=== PATIENT | female | born 1990 | race Caucasian/White ===

== ENCOUNTER 2018-04-01 11:03 | Inpatient (IN) | payer BC, SELFPAY ==
[2018-04-01] VITALS (7 sets, daily range): BP systolic 120–162; BP diastolic 76–103; PULSE 80–98; RESP 14–18; TEMP 36.7–37.7; O2SAT 95–99; BMI 45.1; BMI 45.3
--- NOTE | 2018-04-01 11:17 | ED.DCSUM_ITS ---
- ER Visit Summary Date of Service: 04/01/18 Chief Complaint: Abscess History of Present Illness: The patient is a 27 F presents to the emergency department with a left axillary abscess. Patient states that she has had some increased pain and swelling for the past week. She states she went to urgent care and they wanted to do incision and drainage, but she declined at that time. She was placed on Keflex. She states that symptoms worsened. She began to have fevers and chills. She went back to urgent care 2 days ago and had incision and drainage with no purulence that was able to be expressed. She states that she returned to the [facility] today. She had increasing pain and redness. She also had continued fevers. She was evaluated and due to concern for failed outpatient therapy was sent over to the emergency department. She denies any history of immunosuppression. She denies any other systemic complaints. Physical Examination: Vital signs reviewed General: Well-nourished, well-developed Head: Normocephalic, atraumatic Eyes: Pupils equal and reactive, extraocular muscles intact Neck, supple, no lymphadenopathy Heart: Regular rate and rhythm Respiratory: No distress, clear bilaterally Abdomen: Soft, nontender, nondistended, no peritoneal signs Back: Nontender Extremities: Patient has cellulitis with some fluctuance and lymphadenopathy within the left axilla. There is no streaking. There is no crepitus. She does have incision that is approximately 1-1/2 cm that is open with no drainage. She is markedly tender to palpation. Skin: Normal color no rash Neuro: Alert and oriented, no focal or lateralizing deficits Test Results: [] Emergency Department Course and Treatment: I did discuss the patient with Dr. Moreno on arrival. I was unable to definitively state if there was an abscess. Because of this, we did obtain upper extremity imaging. Labs do show leukocytosis but otherwise unremarkable. The patient was improved with morphine. CT demonstrates cellulitis with questionable phlegmon. There is no definitive abscess. At this time, as the patient has failed outpatient therapy, I do feel that she would benefit from admission for IV antibiotics. She was discussed with the hospitalist and will be admitted per Treatment Plan: [] Disposition: Admission Impression: 1. Left axillary cellulitis with failed outpatient therapy This note was generated with [employer] dictation software. It may contain incorrect words, spelling, and punctuation that were not noted in review of the chart prior to signing ED Disposition - Plan for ED Patient: Chief Complaint: Cellulitis
--- NOTE | 2018-04-01 11:25 | CT_ITS ---
STUDY: CT SCAN AXILLARY REGION LEFT REASON FOR EXAM: Female, 27 years old. History of left axillary cellulitis. Recent attempted drainage. RADIATION DOSAGE (If Supplied By Facility): CTDIvol = ( 43.85 ) mGy, DLP = ( 1822.26 ) mGycm. Individualized dose optimization techniques were used for this CT.? TECHNIQUE: Multiple axial tomographic images of the left axillary region were obtained following intravenous injection of 100 mL of Isovue-300. Coronal and sagittal reconstruction was obtained as well. COMPARISON: None. FINDINGS: Left axillary lymphadenopathy. The largest measures 1.9 cm. There is a 5 cm x 3.6 cm x 4.8 cm area of increased soft tissue density in the left axillary region with overlying skin thickening. This may represent an area of cellulitis and phlegmon. There might be a central 1.[address]/Extremity Upper WITH Contrast IMPRESSION: Findings include encephalitis and phlegmon formation in the left axillary region with possible small pocket of fluid. Slightly enlarged left axillary lymph nodes. Electronically Signed: James Botello MD at 12:30 EDT Tel [phone], Service support ,
[2018-04-01] MEDS: Ondansetron 4 MG/2 ML Vial IV (11:33)
[2018-04-01] MEDS: Morphine 4 MG/ML Syringe IV ×2 (11:33→13:02)
[2018-04-01] MEDS: 0.9% Normal Saline 1,000 ML 1000 ML IV (11:33)
[2018-04-01 11:40] LABS: Absolute Lymphocyte Count 2.67 X10^3/ul (0.83-4.51); Absolute Neutrophil Count 8.3 X10^3/uL (2.0-7.7); Basophil# 0.03 X10^3/uL; Basophil% 0.3 % (0-1); Eosinophils% 0.8 % (0-5); Hematocrit 39.4 % (37-47); Hemoglobin 12.5 g/dl (12.0-15.0); Lymphocyte # 2.67 X10^3/ul (4.0); Lymphocyte % 22.4 % (19-41); Mean Corp Hgb Conc 31.7 g/gl (32-36); Mean Corpuscular Hgb 26.6 pg (27.0-32.0); Mean Corpuscular Volume 83.8 fL (81-99); Monocyte# 0.76 X10^3/uL; Monocyte% 6.4 % (0-10); Neutrophil # 8.33 X10^3/uL (2.7-7.7); Neutrophil % 69.8 % (47-70); POSITIVE COUNT NO; POSITIVE DIFFERENTIAL NO; POSITIVE MORPHOLOGY NO; Platelet Count 395 K/mm3 (150-450); RBC Distribution Width CV 14.2 % (11.6-14.6); White Blood Count 11.9 K/mm3 (4.4-11.0)
[2018-04-01 11:53] LABS: ALB/GLOB Ratio 0.6 RATIO (0.9-2.4); AST(SGOT) 19 U/L (15-37); Alanine Aminotransfer ALT/SGPT 19 U/L (13-56); Albumin, Serum 3.3 g/dL (3.2-5.0); Alkaline Phosphatase 93 U/L (45-117); Anion Gap 7 (5-15); BUN 7 mg/dL (7-18); BUN/Creat Ratio 8.2 RATIO (10-20); Calcium,Total 9.2 mg/dL (8.5-10.1); Chloride 104 mmol/L (98-107); Creatinine, Serum 0.85 mg/dL (0.55-1.02); EST Glomerular Filtration Rate 84 mL/min (>60); Est Glom Filt Rate - Afr Amer 101 mL/min (>60); Estimated Creatinine Clearance 94.97 ml/min; Globulin 5.2 g/dL (2.2-4.2); Glucose 91 mg/dL (74-106); Potassium 4.5 mmol/L (3.5-5.1); Protein, Total 8.5 g/dL (6.4-8.2); Sodium Level 136 mmol/L (136-145)
[2018-04-01 12:00] LABS: Pregnancy, Serum, hCG Quali. NEGATIVE Negative (0-9 Nonpreg)
[2018-04-01 12:01] LABS: Lactic Acid 0.7 mmol/L (0.4-2.0)
--- NOTE | 2018-04-01 12:49 | PCM.HP.STD ---
Problem List (1) Left axillary cellulitis with abscess Status: Acute (2) Morbid obesity Status: Chronic (3) H/o Right axillary cellulitis/abscess Status: Chronic History of Present Illness Date of Admission: 04/01/18 Chief Complaint: Left axillary pain and abscess The patient is a 27 year old F with no significant past medical history came to ER with left axillary pain, swelling consistent with abscess. Patient pain, discomfort started about 2 weeks ago but it gotten really worse with swelling, pain and fever last Thursday. She went to urgent care on Thursday and was given Keflex. She was not able to keep Keflex down and vomited or spit it out. Then she has been going to [facility] and saw CURTIS Pacheco Dr. yesterday and had incision and drainage but no significant pus came out. Today in the ED, she has temperature 99.9?F, heart rate in 90s with mild leukocytosis 11.[address] scan of axillary region in which showed left axillary lymphadenopathy, largest 1 1.9 cm. Increased soft tissue density of 5 x 3.6 x 4.8 cm with overlying skin thickening consistent with phlegmon. There might be sent on 1.1 cm fluid collection [] Past Medical History Past Medical History (Chronic Problems): Chronic Problems Morbid obesity (Chronic) H/o Right axillary cellulitis/abscess (Chronic) Allergies hydromorphone HCl [From Dilaudid] Allergy (Verified 02/25/15 22:45) Other acetaminophen [From Vicodin] Adverse Reaction (Verified 04/01/18 11:08) Vomiting hydrocodone [From Vicodin] Adverse Reaction (Verified 04/01/18 11:08) Vomiting ketorolac tromethamine [From Toradol] Adverse Reaction (Verified 02/25/15 22:45) Other feels like bugs are crawling on her oxycodone [From Percocet] Adverse Reaction (Verified 04/01/18 11:08) Vomiting Home Medications: Ambulatory Orders Medication Instructions Recorded Lorazepam [Ativan] 0.5 mg PO TID PRN #10 tablet 07/17/14 Doxycycline Hyclate 100 mg PO BID #20 capsule 02/26/15 Famotidine [Pepcid] 20 mg PO BID 10/23/15 proCHLORPERazine tablet [Compazine] 5 mg PO Q6H PRN PRN 10/23/15 Smoking Status: Never smoker - *Family History Paternal History Items: No pertinent history Review of Systems Constitutional: Reports: Chills, Fever. Denies: Weight Change HEENT: Denies: Head Aches, Sinus Congestion, Sinus Drainage Cardiovascular: Denies: Chest Pain, Palpitations Respiratory: Denies: Cough, Shortness of breath at rest, Sputum production Gastrointestinal: Reports: Nausea. Denies: Abdominal Pain, Vomiting Genitourinary: Denies: Dysuria Musculoskeletal: Denies: Joint Pain, Joint Tenderness Skin: Reports: Rash, Wounds Neurological: Denies: Numbness, Tingling, Focal weakness Psychiatric: Denies: Anxiety, Depression, Homicidal Ideations, Suicidal Ideations Hematologic/ Lymphatic: Denies: Easy Bruising, Easy Bleeding VTE Information - Inpt Only VTE Present on Admission: No VTE Mechan Device Prophylaxis: None VTE Pharm Prophylaxis ordered?: No Reason prophylaxis not ordered:: Procedure Not Indicated Patient Problems: Active and Suspected Problems Left axillary cellulitis with abscess (Acute) - Physical Exam General: Alert, Oriented x3, Cooperative HEENT: Atraumatic, PERRLA, EOMI, Normocephalic Neck: Supple, No JVD, Negative Carotid Bruits Lungs: Clear to auscultation, Normal air movement Cardiovascular: Regular rate, Regular Rhythm, Normal S1, Normal S2, No murmurs Abdomen: Bowel Sounds Present, Soft, Non Tender, Non-Distended Extremities: Capillary Refill Less than 3 Seconds, Edema Skin: Rash Present, - - Erythematous rash present over left axillary region with swelling, tenderness and incision which was done yesterday. Musculoskeletal: No Tenderness to Palpation of Joints or Extremities Neurological: Cranial nerves II-XII grossly intact Psych/Mental Status: Normal Affect, Appropriate Vital Signs Temp Pulse Resp BP Pulse Ox 99.9 F H 90 14 158/80 H 98 04/01/18 11:05 04/01/18 11:12 04/01/18 11:12 04/01/18 11:12 04/01/18 11:12 Oxygen Delivery Method Room Air Weight: 287 lb 14.779 oz Body Mass Index (BMI) 45.1 Finger Stick Blood Glucose 93 Laboratory Tests Past 24 Hrs 04/01/18 04/01/18 04/01/18 11:25 11:25 11:25 WBC 11.9 H RBC 4.70 Hgb 12.5 Hct 39.4 MCV 83.8 MCH 26.6 L MCHC 31.7 L RDW 14.2 RDW Differential 44.0 H Plt Count 395 MPV 11.0 Immature Gran % (Auto) 0.300 Neut % (Auto) 69.8 Lymph % (Auto) 22.4 [place] % (Auto) 6.4 Eos % (Auto) 0.8 Baso % (Auto) 0.3 Absolute Neuts (auto) 8.3 H Absolute Lymphs (auto) 2.67 Total Counted Not Reportable Sodium 136 Potassium 4.5 Chloride 104 Carbon Dioxide 25.0 Anion Gap 7 BUN 7 Creatinine 0.85 Estim Creat Clear Calc 94.97 Est GFR (MDRD) Af Amer 101 Est GFR (MDRD) Non-Af 84 BUN/Creatinine Ratio 8.2 L Glucose 91 Lactic Acid 0.7 Calcium 9.2 Total Bilirubin 0.40 AST 19 ALT 19 Alkaline Phosphatase 93 Total Protein 8.5 H Albumin 3.3 Globulin 5.2 H Albumin/Globulin Ratio 0.6 L Serum , Qual 04/01/18 11:25 WBC RBC Hgb Hct MCV MCH MCHC RDW RDW Differential Plt Count MPV Immature Gran % (Auto) Neut % (Auto) Lymph % (Auto) [place] % (Auto) Eos % (Auto) Baso % (Auto) Absolute Neuts (auto) Absolute Lymphs (auto) Total Counted Sodium Potassium Chloride Carbon Dioxide Anion Gap BUN Creatinine Estim Creat Clear Calc Est GFR (MDRD) Af Amer Est GFR (MDRD) Non-Af BUN/Creatinine Ratio Glucose Lactic Acid Calcium Total Bilirubin AST ALT Alkaline Phosphatase Total Protein Albumin Globulin Albumin/Globulin Ratio Serum , Qual NEGATIVE Assessment/Plan All Active Problems Left axillary cellulitis with abscess (Acute) The patient is a 27 year old F with no significant past medical history came to ER with left axillary pain, swelling consistent with abscess. Patient pain, discomfort started about 2 weeks ago but it gotten really worse with swelling, pain and fever last Thursday. She went to urgent care on Thursday and was given Keflex. She was not able to keep Keflex down and vomited or spit it out. Then she has been going to [facility] and saw CURTIS Pacheco Dr. yesterday and had incision and drainage but no significant pus came out. Today in the ED, she has temperature 99.9?F, heart rate in 90s with mild leukocytosis 11.[address] scan of axillary region in which showed left axillary lymphadenopathy, largest 1 1.9 cm. Increased soft tissue density of 5 x 3.6 x 4.8 cm with overlying skin thickening consistent with phlegmon. There might be sent on 1.1 cm fluid collection 1. Left axillary cellulitis with phlegmon, failure of outpatient treatment: Patient is being admitted on regular [facility] floor. Patient on IV clindamycin in ER. Deep wound culture, blood cultures x2 ordered. Started on IV cefazolin. For pain, patient can have Motrin or Toradol for severe pain. IV fluid normal saline. 2. Similar history of right axillary cellulitis about 2-3 years ago Patient denies history of hidradenitis suppurativa. 3. Morbid obesity: Weight reduction counseling done. Due to prophylaxis, low risk. Early ambulation encouraged Code Visit Inpatient E&M: 87131 Subs Hosp L2
--- NOTE | 2018-04-01 13:01 | NURSING ---
310 LEFT AXILLA CELLULITIS TU
[2018-04-01] MEDS: 0.9% Normal Saline 1,000 ML 100 ML IV (14:24)
[2018-04-01] MEDS: proCHLORPERazine 5 MG Tablet PO (14:25)
[2018-04-01] MEDS: Ibuprofen 600 MG Tablet PO ×2 (14:38→21:42)
[2018-04-01] MEDS: Cefazolin 1 GM/50 ML BAG IV ×2 (14:47→21:43)
[2018-04-01 17:06] LABS: M R Staph aureus DNA By PCR Negative (Negative); Probe Check PASS; Specimen Processing Control PASS; Staph aureus DNA By PCR POSITIVE (Negative)
[2018-04-01] MEDS: Famotidine 20 MG Tablet PO (21:42)
[2018-04-02] MEDS: Morphine 2 MG/ML Syringe IV ×2 (00:41→21:20)
[2018-04-02] MEDS: 0.9% NaCl Peripheral Flush Adult/Peds IV ×2 (00:41→21:21)
[2018-04-02] MEDS: 0.9% Normal Saline 1,000 ML 100 ML IV ×3 (00:41→20:14)
[2018-04-02] MEDS: proMETHazine 25 MG/ML Syringe 12.5 MG IV ×2 (00:41→21:21)
[2018-04-02] MEDS: Acetaminophen 325 MG Tablet 650 MG PO ×2 (02:24→15:56)
[2018-04-02 02:30] VITALS: BP 100/65; PULSE 76; RESP 14; TEMP 36.4; O2SAT 100
[2018-04-02] MEDS: Ibuprofen 600 MG Tablet PO ×3 (05:15→21:21)
[2018-04-02] MEDS: Cefazolin 1 GM/50 ML BAG IV ×3 (05:15→21:20)
--- NOTE | 2018-04-02 06:35 | NURSING ---
1% Lidocaine requested from pharmacy. Dr. Arnold is requesting it for an I&D to be performed at bedside.
[2018-04-02 08:19] LABS: Absolute Lymphocyte Count 2.18 X10^3/ul (0.83-4.51); Absolute Neutrophil Count 5.4 X10^3/uL (2.0-7.7); Basophil# 0.02 X10^3/uL; Basophil% 0.2 % (0-1); Eosinophil# 0.12 X10^3/uL; Eosinophils% 1.4 % (0-5); Hematocrit 34.5 % (37-47); Lymphocyte # 2.18 X10^3/ul (4.0); Lymphocyte % 25.7 % (19-41); Mean Corp Hgb Conc 31.9 g/gl (32-36); Mean Corpuscular Hgb 27.4 pg (27.0-32.0); Mean Corpuscular Volume 85.8 fL (81-99); Mean Platelet Vol. 10.9 fl (6.2-12.0); Monocyte% 8.2 % (0-10); Neutrophil # 5.43 X10^3/uL (2.7-7.7); Platelet Count 285 K/mm3 (150-450); RBC Distribution Width CV 14.1 % (11.6-14.6); RBC Distribution Width SD 43.7 fl (35.1-43.9); Red Blood Count 4.02 M/mm3 (4.2-5.4); White Blood Count 8.5 K/mm3 (4.4-11.0)
[2018-04-02 08:21] LABS: POSITIVE COUNT NO; POSITIVE DIFFERENTIAL NO; POSITIVE MORPHOLOGY NO
[2018-04-02 09:21] VITALS: BP 126/78; PULSE 90; RESP 18; TEMP 36.5; O2SAT 99
[2018-04-02] MEDS: Famotidine 20 MG Tablet PO ×2 (09:26→21:21)
--- NOTE | 2018-04-02 11:32 | PCM.PN.HOSP ---
Patient Problems: Active and Suspected Problems Left axillary cellulitis with abscess (Acute) Subjective: No fever or chills. Left axilla is still swollen, tender and painful is not able to lift arm or move around shoulder Vitals/I&O's: Vital Signs Temp Pulse Resp BP Pulse Ox 97.7 F L 90 18 126/78 H 99 04/02/18 09:21 04/02/18 09:21 04/02/18 09:21 04/02/18 09:21 04/02/18 09:21 Oxygen Delivery Method Room Air Weight: 289 lb 6 oz Body Mass Index (BMI) 45.3 Finger Stick Blood Glucose 93 Intake and Output for Last 24 Hours 03/31/18 04/01/18 04/02/18 23:59 23:59 23:59 Intake Total 752 / 752 1320 / 1320 Balance 752 / 752 1320 / 1320 General: Alert, Oriented x3, Cooperative HEENT: Atraumatic, PERRLA, EOMI, Normocephalic Neck: Supple, No JVD, Negative Carotid Bruits Lungs: Clear to auscultation, Normal air movement Cardiovascular: Regular rate, Regular Rhythm, Normal S1, Normal S2, No murmurs Abdomen: Bowel Sounds Present, Soft, Non Tender, Non-Distended Extremities: No edema, Capillary Refill Less than 3 Seconds Skin: No rashes, No breakdown, Rash Present - Left axillary mass with tenderness, and duration and purulent material coming out from I&D. Musculoskeletal: No Tenderness to Palpation of Joints or Extremities Neurological: Cranial nerves II-XII grossly intact Psych/Mental Status: Normal Affect, Appropriate Microbiology Past 72 Hours 04/01/18 14:45 Wound Abcess - Axillary Wound Culture - Preliminary Staphylococcus aureus Laboratory Results 04/01/18 11:25: WBC 11.9 H, RBC 4.70, Hgb 12.5, Hct 39.4, MCV 83.8, MCH 26.6 L, MCHC 31.7 L, RDW 14.2, RDW Differential 44.0 H, Plt Count 395, MPV 11.0, Immature Gran % (Auto) 0.300, Neut % (Auto) 69.8, Lymph % (Auto) 22.4, [place] % (Auto) 6.4, Eos % (Auto) 0.8, Baso % (Auto) 0.3, Absolute Neuts (auto) 8.3 H, Absolute Lymphs (auto) 2.67, Total Counted Not Reportable 04/01/18 11:25: Sodium 136, Potassium 4.5, Chloride 104, Carbon Dioxide 25.0, Anion Gap 7, BUN 7, Creatinine 0.85, Estim Creat Clear Calc 94.97, Est GFR (MDRD) Af Amer 101, Est GFR (MDRD) Non-Af 84, BUN/Creatinine Ratio 8.2 L, Glucose 91, Calcium 9.2, Total Bilirubin 0.40, AST 19, ALT 19, Alkaline Phosphatase 93, Total Protein 8.5 H, Albumin 3.3, Globulin 5.2 H, Albumin/Globulin Ratio 0.6 L 04/01/18 11:25: Lactic Acid 0.7 04/01/18 11:25: Serum , Qual NEGATIVE 04/01/18 14:45: MRSA (PCR) Negative 04/01/18 14:45: S.aureus Protein A PCR POSITIVE H, MRSA (PCR) Negative 04/02/18 08:10: WBC 8.5, RBC 4.02 L, Hgb 11.0 L, Hct 34.5 L, MCV 85.8, MCH 27.4, MCHC 31.9 L, RDW 14.1, RDW Differential 43.7, Plt Count 285, MPV 10.9, Immature Gran % (Auto) 0.500, Neut % (Auto) 64.0, Lymph % (Auto) 25.7, [place] % (Auto) 8.2, Eos % (Auto) 1.4, Baso % (Auto) 0.2, Absolute Neuts (auto) 5.4, Absolute Lymphs (auto) 2.18, Total Counted Not Reportable Current Medications Acetaminophen (Tylenol) 650 mg PO Q6H PRN PRN PRN Reason: Mild Pain (scale 0-3)/T>100.7 Last Admin: 04/02/18 02:24 Dose: 650 mg Dextrose (D50w Syringe) 0 gm IV X1 PRN; Protocol PRN Reason: Hypoglycemia Docusate Sodium (Colace) 200 mg PO BID PRN PRN PRN Reason: Constipation Famotidine (Pepcid) 20 mg PO BID DAVID Last Admin: 04/02/18 09:26 Dose: 20 mg Glucagon () 1 mg IM .X1 PRN PRN Reason: Hypoglycemia Sodium Chloride () 1,000 mls @ 100 mls/hr IV .Q10H DAVID Last Admin: 04/02/18 09:36 Dose: 100 mls/hr Cefazolin Sodium () 1 gm in 50 mls @ 150 mls/hr IV Q8 DAVID Last Admin: 04/02/18 05:15 Dose: 150 mls/hr Ibuprofen (Motrin) 600 mg PO Q8 DAVID Last Admin: 04/02/18 05:15 Dose: 600 mg Lorazepam (Ativan) 0.5 mg PO TID PRN PRN Reason: ANXIETY Morphine Sulfate () 1 - 2 mg IV Q4H PRN PRN PRN Reason: Moderate Pain (pain scale 4-5) Last Admin: 04/02/18 00:41 Dose: 2 mg Prochlorperazine Maleate (Compazine Tablet) 5 mg PO Q6H PRN PRN PRN Reason: NAUSEA Last Admin: 04/01/18 14:25 Dose: 5 mg Promethazine HCl (Phenergan) 12.5 mg IV Q4H PRN PRN PRN Reason: NAUSEA/VOMITING Last Admin: 04/02/18 00:41 Dose: 12.5 mg Sodium Chloride () 5 - 30 ml IV UD PRN PRN Reason: SALINE FLUSH Last Admin: 04/02/18 00:41 Dose: 10 ml Medical Necessity - Tobacco Use Smoking Status: Never smoker Assessment/Plan All Active Problems Left axillary cellulitis with abscess (Acute) The patient is a 27 year old F with no significant past medical history came to ER with left axillary pain, swelling consistent with abscess. Patient pain, discomfort started about 2 weeks ago but it gotten really worse with swelling, pain and fever last Thursday. She went to urgent care on Thursday and was given Keflex. She was not able to keep Keflex down and vomited or spit it out. Then she has been going to [facility] and saw CURTIS Pacheco Dr. yesterday and had incision and drainage but no significant pus came out. Today in the ED, she has temperature 99.9?F, heart rate in 90s with mild leukocytosis 11.[address] scan of axillary region in which showed left axillary lymphadenopathy, largest 1 1.9 cm. Increased soft tissue density of 5 x 3.6 x 4.8 cm with overlying skin thickening consistent with phlegmon. There might be sent on 1.1 cm fluid collection 1. Left axillary cellulitis with phlegmon, failure of outpatient treatment: Patient was being admitted on regular [facility] floor. Patient had IV clindamycin in ER. Deep wound culture, Gram stain showing staph aureus. Blood cultures x2 pending. Patient did not had fever or chills since admission. Dr. Moreno has been consulted and he is going to do incision and drainage. Increase cefazolin 2 g every 8 hourly as per body weight. For pain, patient can have Motrin or Toradol for severe pain and as anti-inflammatory agents. Continue IV fluid normal saline. 2. Similar history of right axillary cellulitis about 2-3 years ago Patient denies history of hidradenitis suppurativa. 3. Morbid obesity: Weight reduction counseling done. Due to prophylaxis, low risk. Early ambulation encouraged Code Visit Inpatient E&M: 36125 Subs Hosp L3
--- NOTE | 2018-04-02 12:40 | CASEMGMT ---
See RN SAMINA assess link: D/C PLAN: Home [facility] Face to Face with patient for initial transition planning/care coordination assessment. RN SAMINA introduced self and role at [facility]. Patient resting in bed, alert and oriented. Patient willing to participate in assessment and is able to answer all questions appropriately. Care providers, pharmacy, and demographics verified. Pt wishes to discharge home, denies need for home health at this time. Pt states she has no further needs or concerns at this time. CM to follow for discharge planning needs that may arise. Alejo EL RN CM
[2018-04-02] MEDS: Ondansetron 4 MG/2 ML Vial IV (13:36)
[2018-04-02] MEDS: Morphine 2 MG/ML Syringe 3 MG IV (13:37)
[2018-04-02 16:01] VITALS: BP 104/62; PULSE 77; RESP 16; TEMP 36.8; O2SAT 99
--- NOTE | 2018-04-02 18:22 | PCM.CONS.GEN ---
Reason for Consult Date of Consultation: 04/02/18 History of Present Illness: aMnuel is a 27 year old female with a complaint of a left axillary?abscess. ?She ?has noticed this abscess for the past week. Noted pain first, then significant swelling. ?She has a small area that opened on its own, now draining bloody fluid, no relief with this. ?Patient notes she has felt slightly feverish the last few days though no measured fever at office visit. ?She denies?a history of diabetes. ? ? The patient was seen at Urgent Care Thursday?and?was started on cephalexin. ?She has been referred for surgical evaluation. ?She has noted no improvement on the antibiotic. ?Patient was evaluated by physician's acute care nursing assistant-Tara Ortiz on Thursday 03/29 and she had recommended incision and drainage with culture at that time. ?Patient declined procedure at that time. ?She was scheduled to follow up with us the following day?but had to cancel due to a family emergency. ?She presented yesterday?for recheck noting worsening pain and redness. ? The patient denies a prior history of abscesses but does recall an episode of lymphadenopathy in the right axilla several years ago, states she had extensive workup for that and no clear etiology was ever discovered. ?She denies any pets at home, denies any trauma to the hand or arm. ? She performed an incision and drainage of the left axillary abscess on 03/31/18 with minimal purulent material. ?Culture was obtained but showed no growth as of this morning's visit. ?Antibiotic was changed to doxycycline pending culture results, patient has taken one dose of this. ?She notes she is feeling worse today. ?The erythema is now extending outside of the marked borders and she is feeling feverish. ?Notes significant pain with any slight movement of her left arm. there was no gross fluctuance but significant cellulitis of the area when the patient was seen in the office. She is admitted for IV antibiotics. There was a second site that started draining purulent material last evening. she has continued pain. There is more obvious fluctuance noted today. Past Medical History Past Medical History (Chronic Problems): Chronic Problems Morbid obesity (Chronic) H/o Right axillary cellulitis/abscess (Chronic) Allergies hydromorphone HCl [From Dilaudid] Allergy (Verified 02/25/15 22:45) Other acetaminophen [From Vicodin] Adverse Reaction (Verified 04/01/18 11:08) Vomiting hydrocodone [From Vicodin] Adverse Reaction (Verified 04/01/18 11:08) Vomiting ketorolac tromethamine [From Toradol] Adverse Reaction (Verified 02/25/15 22:45) Other feels like bugs are crawling on her oxycodone [From Percocet] Adverse Reaction (Verified 04/01/18 11:08) Vomiting Home Medications: Ambulatory Orders Medication Instructions Recorded Lorazepam [Ativan] 0.5 mg PO TID PRN #10 tablet 07/17/14 RX: Doxycycline Hyclate 100 mg PO BID #20 capsule 02/26/15 Famotidine [Pepcid] 20 mg PO BID 10/23/15 proCHLORPERazine tablet [Compazine] 5 mg PO Q6H PRN PRN 10/23/15 Divalproex Sodium [Depakote] 125 mg PO BIDCM 04/01/18 Smoking Status: Never smoker - *Family History Paternal History Items: No pertinent history Review of Systems Constitutional: Denies: Chills, Fever, Weight Change HEENT: Denies: Head Aches, Sinus Congestion, Sinus Drainage Cardiovascular: Denies: Chest Pain, Palpitations Respiratory: Denies: Cough, Shortness of breath at rest, Sputum production Gastrointestinal: Denies: Abdominal Pain, Nausea, Vomiting Genitourinary: Denies: Dysuria Musculoskeletal: Denies: Joint Pain, Joint Tenderness Skin: Reports: - - left axillary abscess. Denies: Rash, Wounds Neurological: Denies: Numbness, Tingling, Focal weakness Psychiatric: Denies: Anxiety, Depression, Homicidal Ideations, Suicidal Ideations Hematologic/ Lymphatic: Denies: Easy Bruising, Easy Bleeding Patient Problems: Active and Suspected Problems Left axillary cellulitis with abscess (Acute) - Physical Exam General: Alert, Oriented x3, Cooperative Lungs: Clear to auscultation, Normal air movement Cardiovascular: Regular rate, No murmurs Musculoskeletal: - - left axilla-a transverse incision with no current drainage. Fluctuance just above the site of the transverse incision and a sinus draining purulent material. Above this. Overall, erythematous felt to be 10 x 5 cm Vital Signs Temp Pulse Resp BP Pulse Ox 98.2 F 77 16 104/62 99 04/02/18 16:01 04/02/18 16:01 04/02/18 16:01 04/02/18 16:01 04/02/18 16:01 Oxygen Delivery Method Room Air Weight: 131.258 kg Body Mass Index (BMI) 45.3 Finger Stick Blood Glucose 93 Intake and Output for Last 24 Hours 03/31/18 04/01/18 04/02/18 23:59 23:59 23:59 Intake Total 752 / 752 2945 / 2945 Balance 752 / 752 2945 / 2945 Microbiology Past 72 Hours 04/01/18 14:45 Gram Stain - Final Wound Abcess - Axillary Wound Culture - Preliminary Staphylococcus aureus Laboratory Tests Past 24 Hrs 04/02/18 08:10 WBC 8.5 RBC 4.02 L Hgb 11.0 L Hct 34.5 L MCV 85.8 MCH 27.4 MCHC 31.9 L RDW 14.1 RDW Differential 43.7 Plt Count 285 MPV 10.9 Immature Gran % (Auto) 0.500 Neut % (Auto) 64.0 Lymph % (Auto) 25.7 [place] % (Auto) 8.2 Eos % (Auto) 1.4 Baso % (Auto) 0.2 Absolute Neuts (auto) 5.4 Absolute Lymphs (auto) 2.18 Total Counted Not Reportable Assessment/Plan All Active Problems Left axillary cellulitis with abscess (Acute) left axillary complicated abscess PROCEDURE: ?INCISION AND DRAINAGE OF left axillary?ABSCESS ? After consent was obtained and the site, person, and procedure verified, the patient`s skin was prepped and draped in the usual fashion. ?Lidocaine was injected into the skin. ?A circular incision was made over the site that was draining purulent material. The site was unroofed but then tracked down towards the area of maximal fluctuance. ?A second circular incision was made over the site that was fluctuant in this drained a much larger amount of purulent material. ?Culture was obtained??the wound was packed with plain gauze in both sites. The patient tolerated the procedure well. We will plan for the patient 2. Continue to receive IV antibiotics and watch for improvement in the cellulitis. We'll plan to remove the packing in the morning.
[2018-04-02 20:45] VITALS: BP 108/61; PULSE 73; RESP 16; TEMP 36.9; O2SAT 99
[2018-04-03 03:45] VITALS: BP 107/67; PULSE 81; RESP 18; TEMP 36.8; O2SAT 98
[2018-04-03] MEDS: Cefazolin 1 GM/50 ML BAG IV ×3 (05:44→23:17)
[2018-04-03] MEDS: Ibuprofen 600 MG Tablet PO ×3 (05:44→23:17)
[2018-04-03] MEDS: 0.9% Normal Saline 1,000 ML 100 ML IV ×2 (05:45→14:57)
[2018-04-03] MEDS: Famotidine 20 MG Tablet PO ×2 (08:47→23:17)
[2018-04-03] MEDS: Acetaminophen 325 MG Tablet 650 MG PO ×2 (08:48→20:17)
[2018-04-03] MEDS: Gabapentin 100 MG Capsule 200 MG PO ×2 (09:29→16:28)
--- NOTE | 2018-04-03 10:25 | PCM.PN.SRG ---
Patient Problems: Active and Suspected Problems Left axillary cellulitis with abscess (Acute) Subjective: still pain in the axilla area and tingling down arm - Physical Exam General: Alert, Oriented x3, Cooperative Extremities: - - no further fluctuance. Decreased erythema and decreased induration and fullness in the axillary area. The packing was removed with purulent discharge from the lower area but no undrained fluctuance noted Vital Signs Temp Pulse Resp BP Pulse Ox 98.3 F 81 18 107/67 98 04/03/18 03:45 04/03/18 03:45 04/03/18 03:45 04/03/18 03:45 04/03/18 03:45 Oxygen Delivery Method Room Air Weight: 131.258 kg Body Mass Index (BMI) 45.3 Finger Stick Blood Glucose 93 Intake and Output for Last 24 Hours 04/01/18 04/02/18 04/03/18 23:59 23:59 23:59 Intake Total 752 / 752 2945 / 2945 1073 / 1073 Balance 752 / 752 2945 / 2945 1073 / 1073 Microbiology Past 72 Hours 04/01/18 14:45 Gram Stain - Final Wound Abcess - Axillary Wound Culture - Final Staphylococcus aureus Gram positive [place] Anaerobic Culture - Preliminary Checking for anaerobes, further studies to follow. Medical Necessity - Tobacco Use Smoking Status: Never smoker Assessment/Plan All Active Problems Left axillary cellulitis with abscess (Acute) left axillary complicated abscess - status post incision and drainage with counter incision of somewhat complicated left axillary abscess the packing was removed this morning. Overall, induration, inflammation is improving with no undrained fluctuance noted. Patient still had considerable pain. Has concerns about vomiting with all narcotics. We will add gabapentin.
--- NOTE | 2018-04-03 10:48 | PCM.PN.HOSP ---
Patient Problems: Active and Suspected Problems Left axillary cellulitis with abscess (Acute) Subjective: Patient seen and examined. Be managed for left axillary abscess and is status post I&D. Complains of pain that she states is relatively well controlled. She denies any fever or chills, any cough, any abdominal pain, any diarrhea vomiting. Abscess packing was taken out this morning with some drainage and she currently has a dressing on the side of the I&D. 12 point review of systems otherwise negative. Vitals/I&O's: Vital Signs Temp Pulse Resp BP Pulse Ox 98.3 F 81 18 107/67 98 04/03/18 03:45 04/03/18 03:45 04/03/18 03:45 04/03/18 03:45 04/03/18 03:45 Oxygen Delivery Method Room Air Weight: 289 lb 6 oz Body Mass Index (BMI) 45.3 Finger Stick Blood Glucose 93 Intake and Output for Last 24 Hours 04/01/18 04/02/18 04/03/18 23:59 23:59 23:59 Intake Total 752 / 752 2945 / 2945 1073 / 1073 Balance 752 / 752 2945 / 2945 1073 / 1073 General: Alert, Oriented x3, Cooperative, No apparent distress HEENT: Atraumatic, PERRLA, EOMI, Normocephalic Oral: Moist Mucosa Neck: Supple, No JVD, Negative Carotid Bruits Lungs: Clear to auscultation, Normal air movement, No rhonchi, No wheeze, No rales Cardiovascular: Regular rate, Normal S1, Normal S2, No murmurs Abdomen: Bowel Sounds Present, Soft, Non Tender, Non-Distended, No Hepato-splenomegaly Extremities: No clubbing, No cyanosis, No edema, Capillary Refill Less than 3 Seconds Skin: - - dressing over right axillary abscess; s/p I&D. still has moderate erythema and tenderness in left axilla Musculoskeletal: No Tenderness to Palpation of Joints or Extremities Lymphatic: No Cervical, Supraclavicular, or Inguinal Adenopathy Neurological: Cranial nerves II-XII grossly intact, Neuro grossly intact, Motor Exam 5/5 strength throughout Psych/Mental Status: Normal Affect, Appropriate, Alert and oriented to time, place, person, mood and affect Microbiology Past 72 Hours 04/01/18 14:45 Wound Abcess - Axillary Gram Stain - Final 04/01/18 14:45 Wound Abcess - Axillary Wound Culture - Final Staphylococcus aureus Gram positive [place] 04/01/18 14:45 Wound Abcess - Axillary Anaerobic Culture - Preliminary Checking for anaerobes, further studies to follow. Current Medications Acetaminophen (Tylenol) 650 mg PO Q6H PRN PRN PRN Reason: Mild Pain (scale 0-3)/T>100.7 Last Admin: 04/03/18 08:48 Dose: 650 mg Dextrose (D50w Syringe) 0 gm IV X1 PRN; Protocol PRN Reason: Hypoglycemia Docusate Sodium (Colace) 200 mg PO BID PRN PRN PRN Reason: Constipation Famotidine (Pepcid) 20 mg PO BID [facility] Last Admin: 04/03/18 08:47 Dose: 20 mg Gabapentin (Neurontin) 200 mg PO TIDCM [facility] Last Admin: 04/03/18 09:29 Dose: 200 mg Glucagon () 1 mg IM .X1 PRN PRN Reason: Hypoglycemia Sodium Chloride () 1,000 mls @ 100 mls/hr IV .Q10H [facility] Last Admin: 04/03/18 05:45 Dose: 100 mls/hr Cefazolin Sodium () 1 gm in 50 mls @ 150 mls/hr IV Q8 [facility] Last Admin: 04/03/18 05:44 Dose: 150 mls/hr Ibuprofen (Motrin) 600 mg PO Q8 [facility] Last Admin: 04/03/18 05:44 Dose: 600 mg Lorazepam (Ativan) 0.5 mg PO TID PRN PRN Reason: ANXIETY Morphine Sulfate () 1 - 2 mg IV Q4H PRN PRN PRN Reason: Moderate Pain (pain scale 4-5) Last Admin: 04/02/18 21:20 Dose: 2 mg Prochlorperazine Maleate (Compazine Tablet) 5 mg PO Q6H PRN PRN PRN Reason: NAUSEA Last Admin: 04/01/18 14:25 Dose: 5 mg Promethazine HCl (Phenergan) 12.5 mg IV Q4H PRN PRN PRN Reason: NAUSEA/VOMITING Last Admin: 04/02/18 21:21 Dose: 12.5 mg Sodium Chloride () 5 - 30 ml IV UD PRN PRN Reason: SALINE FLUSH Last Admin: 04/02/18 21:21 Dose: 20 ml Medical Necessity - Tobacco Use Smoking Status: Never smoker Assessment/Plan All Active Problems Left axillary cellulitis with abscess (Acute) 1. Left axillary abscess and cellulitis s/p I&D Failed outpatient treatment. Status post I&D. Packing removed today. Is afebrile. On IV cefazolin 2gram q8 CT of axilla showed left axillary lymphadenomapthy and increased soft tissue density with overlying skin thickening consistent with phlegmon on tyelenol and morphine; gabapentin added on as patient is concerned about effects of opiates 2. Morbid obesity: counselled about healthy diet and exercise DVT prophylaxis: SCDs; encourage ambulation Code Visit Inpatient E&M: 45158 Subs Hosp L2
--- NOTE | 2018-04-03 10:54 | PN_ITS ---
Patient Problems: Active and Suspected Problems Left axillary cellulitis with abscess (Acute) Subjective: Patient seen and examined. Be managed for left axillary abscess and is status post I&D. Complains of pain that she states is relatively well controlled. She denies any fever or chills, any cough, any abdominal pain, any diarrhea vomiting. Abscess packing was taken out this morning with some drainage and she currently has a dressing on the side of the I&D. 12 point review of systems otherwise negative. Vitals/I&O's: Vital Signs Temp Pulse Resp BP Pulse Ox 98.3 F 81 18 107/67 98 04/03/18 03:45 04/03/18 03:45 04/03/18 03:45 04/03/18 03:45 04/03/18 03:45 Oxygen Delivery Method Room Air Weight: 289 lb 6 oz Body Mass Index (BMI) 45.3 Finger Stick Blood Glucose 93 Intake and Output for Last 24 Hours 04/01/18 04/02/18 04/03/18 23:59 23:59 23:59 Intake Total 752 / 752 2945 / 2945 1073 / 1073 Balance 752 / 752 2945 / 2945 1073 / 1073 General: Alert, Oriented x3, Cooperative, No apparent distress HEENT: Atraumatic, PERRLA, EOMI, Normocephalic Oral: Moist Mucosa Neck: Supple, No JVD, Negative Carotid Bruits Lungs: Clear to auscultation, Normal air movement, No rhonchi, No wheeze, No rales Cardiovascular: Regular rate, Normal S1, Normal S2, No murmurs Abdomen: Bowel Sounds Present, Soft, Non Tender, Non-Distended, No Hepato- splenomegaly Extremities: No clubbing, No cyanosis, No edema, Capillary Refill Less than 3 Seconds Skin: - - dressing over right axillary abscess; s/p I&D. still has moderate erythema and tenderness in left axilla Musculoskeletal: No Tenderness to Palpation of Joints or Extremities Lymphatic: No Cervical, Supraclavicular, or Inguinal Adenopathy Neurological: Cranial nerves II-XII grossly intact, Neuro grossly intact, Motor Exam 5/5 strength throughout Psych/Mental Status: Normal Affect, Appropriate, Alert and oriented to time, place, person, mood and affect Microbiology Past 72 Hours 04/01/18 14:45 Wound Abcess - Axillary Gram Stain - Final 04/01/18 14:45 Wound Abcess - Axillary Wound Culture - Final Staphylococcus aureus Gram positive [place] 04/01/18 14:45 Wound Abcess - Axillary Anaerobic Culture - Preliminary Checking for anaerobes, further studies to follow. Current Medications Acetaminophen (Tylenol) 650 mg PO Q6H PRN PRN PRN Reason: Mild Pain (scale 0-3)/T>100.7 Last Admin: 04/03/18 08:48 Dose: 650 mg Dextrose (D50w Syringe) 0 gm IV X1 PRN; Protocol PRN Reason: Hypoglycemia Docusate Sodium (Colace) 200 mg PO BID PRN PRN PRN Reason: Constipation Famotidine (Pepcid) 20 mg PO BID [facility] Last Admin: 04/03/18 08:47 Dose: 20 mg Gabapentin (Neurontin) 200 mg PO TIDCM [facility] Last Admin: 04/03/18 09:29 Dose: 200 mg Glucagon () 1 mg IM .X1 PRN PRN Reason: Hypoglycemia Sodium Chloride () 1,000 mls @ 100 mls/hr IV .Q10H [facility] Last Admin: 04/03/18 05:45 Dose: 100 mls/hr Cefazolin Sodium () 1 gm in 50 mls @ 150 mls/hr IV Q8 [facility] Last Admin: 04/03/18 05:44 Dose: 150 mls/hr Ibuprofen (Motrin) 600 mg PO Q8 [facility] Last Admin: 04/03/18 05:44 Dose: 600 mg Lorazepam (Ativan) 0.5 mg PO TID PRN PRN Reason: ANXIETY Morphine Sulfate () 1 - 2 mg IV Q4H PRN PRN PRN Reason: Moderate Pain (pain scale 4-5) Last Admin: 04/02/18 21:20 Dose: 2 mg Prochlorperazine Maleate (Compazine Tablet) 5 mg PO Q6H PRN PRN PRN Reason: NAUSEA Last Admin: 04/01/18 14:25 Dose: 5 mg Promethazine HCl (Phenergan) 12.5 mg IV Q4H PRN PRN PRN Reason: NAUSEA/VOMITING Last Admin: 04/02/18 21:21 Dose: 12.5 mg Sodium Chloride () 5 - 30 ml IV UD PRN PRN Reason: SALINE FLUSH Last Admin: 04/02/18 21:21 Dose: 20 ml Medical Necessity - Tobacco Use Smoking Status: Never smoker Assessment/Plan All Active Problems Left axillary cellulitis with abscess (Acute) 1. Left axillary abscess and cellulitis s/p I&D * Failed outpatient treatment. Status post I&D. Packing removed today. * Is afebrile. On IV cefazolin 2gram q8 * CT of axilla showed left axillary lymphadenomapthy and increased soft tissue density with overlying skin thickening consistent with phlegmon * on tyelenol and morphine; gabapentin added on as patient is concerned about effects of opiates * 2. Morbid obesity: counselled about healthy diet and exercise DVT prophylaxis: SCDs; encourage ambulation Code Visit Inpatient E&M: 99208 Subs Hosp L2
[2018-04-03 13:49] VITALS: BP 143/54; PULSE 75; RESP 16; TEMP 36.7; O2SAT 98
[2018-04-03 20:00] VITALS: BP 144/89; PULSE 85; RESP 18; TEMP 37.2; O2SAT 99
[2018-04-03] MEDS: 0.9% NaCl Peripheral Flush Adult/Peds IV (23:16)
[2018-04-03] MEDS: proMETHazine 25 MG/ML Syringe 12.5 MG IV (23:18)
[2018-04-03] MEDS: Morphine 2 MG/ML Syringe IV (23:18)
[2018-04-04 02:45] VITALS: BP 94/55; PULSE 70; RESP 16; TEMP 36.7; O2SAT 100
[2018-04-04] MEDS: 0.9% Normal Saline 1,000 ML 100 ML IV (05:11)
[2018-04-04] MEDS: Ibuprofen 600 MG Tablet PO ×3 (05:12→21:24)
[2018-04-04 05:35] LABS: Absolute Lymphocyte Count 3.25 X10^3/ul (0.83-4.51); Basophil# 0.03 X10^3/uL; Basophil% 0.4 % (0-1); Eosinophil# 0.18 X10^3/uL; Eosinophils% 2.2 % (0-5); Hematocrit 34.3 % (37-47); Hemoglobin 10.8 g/dl (12.0-15.0); Lymphocyte # 3.25 X10^3/ul (4.0); Mean Corp Hgb Conc 31.5 g/gl (32-36); Mean Corpuscular Hgb 26.3 pg (27.0-32.0); Mean Corpuscular Volume 83.7 fL (81-99); Mean Platelet Vol. 10.9 fl (6.2-12.0); Monocyte# 0.59 X10^3/uL; Monocyte% 7.3 % (0-10); Neutrophil # 4.02 X10^3/uL (2.7-7.7); Neutrophil % 49.5 % (47-70); Platelet Count 340 K/mm3 (150-450); RBC Distribution Width SD 42.9 fl (35.1-43.9); White Blood Count 8.1 K/mm3 (4.4-11.0)
[2018-04-04 05:43] LABS: POSITIVE COUNT NO; POSITIVE DIFFERENTIAL NO; POSITIVE MORPHOLOGY NO
[2018-04-04 05:52] LABS: Anion Gap 7 (5-15); BUN 11 mg/dL (7-18); Calcium,Total 8.1 mg/dL (8.5-10.1); Chloride 109 mmol/L (98-107); Creatinine, Serum 0.69 mg/dL (0.55-1.02); EST Glomerular Filtration Rate 107 mL/min (>60); Est Glom Filt Rate - Afr Amer 129 mL/min (>60); Estimated Creatinine Clearance 116.99 ml/min; Glucose 82 mg/dL (74-106); Potassium 4.1 mmol/L (3.5-5.1); Sodium Level 142 mmol/L (136-145)
[2018-04-04 08:38] VITALS: BP 115/69; PULSE 68; RESP 16; TEMP 36.9; O2SAT 99
[2018-04-04] MEDS: Famotidine 20 MG Tablet PO ×2 (08:41→21:24)
[2018-04-04] MEDS: Gabapentin 100 MG Capsule 200 MG PO ×2 (08:41→12:22)
--- NOTE | 2018-04-04 09:51 | PCM.PN.HOSP ---
Patient Problems: Active and Suspected Problems Left axillary cellulitis with abscess (Acute) Subjective: Patient seen and examined. She was a bit cranky because she was unable to sleep last night. She denied any fever or chills but still has the pain in her left axilla. She denied any cough or chest pain, shortness of breath, diarrhea vomiting. 12 point review of systems is otherwise negative. Labs and vitals reviewed. Vitals/I&O's: Vital Signs Temp Pulse Resp BP Pulse Ox 98.4 F 68 16 115/69 99 04/04/18 08:38 04/04/18 08:38 04/04/18 08:38 04/04/18 08:38 04/04/18 08:38 Oxygen Delivery Method Room Air Weight: 289 lb 6 oz Body Mass Index (BMI) 45.3 Finger Stick Blood Glucose 93 Intake and Output for Last 24 Hours 04/02/18 04/03/18 04/04/18 23:59 23:59 23:59 Intake Total 2945 / 2945 3268 / 3268 856 / 856 Balance 2945 / 2945 3268 / 3268 856 / 856 General: Alert, Oriented x3, Cooperative, No apparent distress HEENT: Atraumatic, PERRLA, EOMI, Normocephalic Oral: Moist Mucosa Neck: Supple, No JVD, Negative Carotid Bruits Lungs: Clear to auscultation, Normal air movement, No rhonchi, No wheeze, No rales Cardiovascular: Regular rate, Regular Rhythm, Normal S1, Normal S2, No murmurs Abdomen: Bowel Sounds Present, Soft, Non Tender, Non-Distended, No Hepato-splenomegaly Extremities: No clubbing, No edema, Capillary Refill Less than 3 Seconds Skin: - - dressing in right axilla is soaked with discharge; area is still erythematous and moderately tender Musculoskeletal: No Tenderness to Palpation of Joints or Extremities Lymphatic: No Cervical, Supraclavicular, or Inguinal Adenopathy Neurological: Cranial nerves II-XII grossly intact, Neuro grossly intact, Motor Exam 5/5 strength throughout Psych/Mental Status: Normal Affect, Appropriate, Alert and oriented to time, place, person, mood and affect Microbiology Past 72 Hours 04/01/18 11:45 Blood Culture (Wb) - Left Hand Blood Culture - Preliminary 04/02/18 16:30 Wound Abcess - Axillary Gram Stain - Final 04/02/18 16:30 Wound Abcess - Axillary Wound Culture - Preliminary Staphylococcus aureus 04/01/18 11:25 Blood Culture (Wb) - Right Hand Blood Culture - Preliminary No growth in 48 hours. 04/01/18 14:45 Wound Abcess - Axillary Gram Stain - Final 04/01/18 14:45 Wound Abcess - Axillary Wound Culture - Final Staphylococcus aureus Gram positive [place] 04/01/18 14:45 Wound Abcess - Axillary Anaerobic Culture - Preliminary Checking for anaerobes, further studies to follow. Laboratory Results 04/04/18 05:06: WBC 8.1, RBC 4.10 L, Hgb 10.8 L, Hct 34.3 L, MCV 83.7, MCH 26.3 L, MCHC 31.5 L, RDW 14.0, RDW Differential 42.9, Plt Count 340, MPV 10.9, Immature Gran % (Auto) 0.600, Neut % (Auto) 49.5, Lymph % (Auto) 40.0, [place] % (Auto) 7.3, Eos % (Auto) 2.2, Baso % (Auto) 0.4, Absolute Neuts (auto) 4.0, Absolute Lymphs (auto) 3.25, Total Counted Not Reportable 04/04/18 05:06: Sodium 142, Potassium 4.1, Chloride 109 H, Carbon Dioxide 26.0, Anion Gap 7, BUN 11, Creatinine 0.69, Estim Creat Clear Calc 116.99, Est GFR (MDRD) Af Amer 129, Est GFR (MDRD) Non-Af 107, BUN/Creatinine Ratio 16.0, Glucose 82, Calcium 8.1 L Current Medications Acetaminophen (Tylenol) 650 mg PO Q6H PRN PRN PRN Reason: Mild Pain (scale 0-3)/T>100.7 Last Admin: 04/03/18 20:17 Dose: 650 mg Dextrose (D50w Syringe) 0 gm IV X1 PRN; Protocol PRN Reason: Hypoglycemia Docusate Sodium (Colace) 200 mg PO BID PRN PRN PRN Reason: Constipation Famotidine (Pepcid) 20 mg PO BID [facility] Last Admin: 04/04/18 08:41 Dose: 20 mg Gabapentin (Neurontin) 200 mg PO TIDCM [facility] Last Admin: 04/04/18 08:41 Dose: 200 mg Glucagon () 1 mg IM .X1 PRN PRN Reason: Hypoglycemia Sodium Chloride () 1,000 mls @ 100 mls/hr IV .Q10H [facility] Last Admin: 04/04/18 05:11 Dose: 100 mls/hr Cefepime HCl 2 gm/ Sodium (Chloride) 100 mls @ 200 mls/hr IV Q8 [facility] Last Admin: 04/04/18 05:12 Dose: 200 mls/hr Ibuprofen (Motrin) 600 mg PO Q8 [facility] Last Admin: 04/04/18 05:12 Dose: 600 mg Lorazepam (Ativan) 0.5 mg PO TID PRN PRN Reason: ANXIETY Morphine Sulfate () 1 - 2 mg IV Q4H PRN PRN PRN Reason: Moderate Pain (pain scale 4-5) Last Admin: 04/03/18 23:18 Dose: 2 mg Prochlorperazine Maleate (Compazine Tablet) 5 mg PO Q6H PRN PRN PRN Reason: NAUSEA Last Admin: 04/01/18 14:25 Dose: 5 mg Promethazine HCl (Phenergan) 12.5 mg IV Q4H PRN PRN PRN Reason: NAUSEA/VOMITING Last Admin: 04/03/18 23:18 Dose: 12.5 mg Sodium Chloride () 5 - 30 ml IV UD PRN PRN Reason: SALINE FLUSH Last Admin: 04/03/18 23:16 Dose: 30 ml Medical Necessity - Tobacco Use Smoking Status: Never smoker Assessment/Plan All Active Problems Left axillary cellulitis with abscess (Acute) 1. Left axillary abscess and cellulitis s/p I&D Failed outpatient treatment. Status post I&D. Is afebrile. On IV cefazolin 2gram q8 CT of axilla showed left axillary lymphadenomapthy and increased soft tissue density with overlying skin thickening consistent with phlegmon wound cultured Staph aureus; blood cultures were initially negative. REpeat blood culture pending his initial blood cultures cultured a gram-negative organism but it is thought to be a contaminant. Antibiotics were switched empirically to cefepime to cover for the gram-negative. However, cefepime doesnt cover Staph. I called microbiology and discussed with them; according to them, they suspect that there was a precipitant on the plate and that is what may have been confused as a gram-negative organism. However they did not think that cultures have been grew anything at all. Blood cultures be repeated. Discussed with Dr. Arnold. He expressed concern that infection did not seem like a typical staph infection and is concerned that if steroids might be involved. I will therefore start IV clindamycin which will cover both staph and diphtheroids. on tyelenol and morphine; gabapentin added on as patient is concerned about effects of opiates 2. Morbid obesity: counselled about healthy diet and exercise DVT prophylaxis: SCDs; encourage ambulation Code Visit Inpatient E&M: 45664 Subs Hosp L2
--- NOTE | 2018-04-04 09:55 | PN_ITS ---
Patient Problems: Active and Suspected Problems Left axillary cellulitis with abscess (Acute) Subjective: Patient seen and examined. She was a bit cranky because she was unable to sleep last night. She denied any fever or chills but still has the pain in her left axilla. She denied any cough or chest pain, shortness of breath, diarrhea vomiting. 12 point review of systems is otherwise negative. Labs and vitals reviewed. Vitals/I&O's: Vital Signs Temp Pulse Resp BP Pulse Ox 98.4 F 68 16 115/69 99 04/04/18 08:38 04/04/18 08:38 04/04/18 08:38 04/04/18 08:38 04/04/18 08:38 Oxygen Delivery Method Room Air Weight: 289 lb 6 oz Body Mass Index (BMI) 45.3 Finger Stick Blood Glucose 93 Intake and Output for Last 24 Hours 04/02/18 04/03/18 04/04/18 23:59 23:59 23:59 Intake Total 2945 / 2945 3268 / 3268 856 / 856 Balance 2945 / 2945 3268 / 3268 856 / 856 General: Alert, Oriented x3, Cooperative, No apparent distress HEENT: Atraumatic, PERRLA, EOMI, Normocephalic Oral: Moist Mucosa Neck: Supple, No JVD, Negative Carotid Bruits Lungs: Clear to auscultation, Normal air movement, No rhonchi, No wheeze, No rales Cardiovascular: Regular rate, Regular Rhythm, Normal S1, Normal S2, No murmurs Abdomen: Bowel Sounds Present, Soft, Non Tender, Non-Distended, No Hepato-sple nomegaly Extremities: No clubbing, No edema, Capillary Refill Less than 3 Seconds Skin: - - dressing in right axilla is soaked with discharge; area is still erythematous and moderately tender Musculoskeletal: No Tenderness to Palpation of Joints or Extremities Lymphatic: No Cervical, Supraclavicular, or Inguinal Adenopathy Neurological: Cranial nerves II-XII grossly intact, Neuro grossly intact, Motor Exam 5/5 strength throughout Psych/Mental Status: Normal Affect, Appropriate, Alert and oriented to time, place, person, mood and affect Microbiology Past 72 Hours 04/01/18 11:45 Blood Culture (Wb) - Left Hand Blood Culture - Preliminary 04/02/18 16:30 Wound Abcess - Axillary Gram Stain - Final 04/02/18 16:30 Wound Abcess - Axillary Wound Culture - Preliminary Staphylococcus aureus 04/01/18 11:25 Blood Culture (Wb) - Right Hand Blood Culture - Preliminary No growth in 48 hours. 04/01/18 14:45 Wound Abcess - Axillary Gram Stain - Final 04/01/18 14:45 Wound Abcess - Axillary Wound Culture - Final Staphylococcus aureus Gram positive [place] 04/01/18 14:45 Wound Abcess - Axillary Anaerobic Culture - Preliminary Checking for anaerobes, further studies to follow. Laboratory Results 04/04/18 05:06: WBC 8.1, RBC 4.10 L, Hgb 10.8 L, Hct 34.3 L, MCV 83.7, MCH 26.3 L, MCHC 31.5 L, RDW 14.0, RDW Differential 42.9, Plt Count 340, MPV 10.9, Immature Gran % (Auto) 0.600, Neut % (Auto) 49.5, Lymph % (Auto) 40.0, [place] % (Auto) 7.3, Eos % (Auto) 2.2, Baso % (Auto) 0.4, Absolute Neuts (auto) 4.0, Absolute Lymphs (auto) 3.25, Total Counted Not Reportable 04/04/18 05:06: Sodium 142, Potassium 4.1, Chloride 109 H, Carbon Dioxide 26.0, Anion Gap 7, BUN 11, Creatinine 0.69, Estim Creat Clear Calc 116.99, Est GFR (MDRD) Af Amer 129, Est GFR (MDRD) Non-Af 107, BUN/Creatinine Ratio 16.0, Glucose 82, Calcium 8.1 L Current Medications Acetaminophen (Tylenol) 650 mg PO Q6H PRN PRN PRN Reason: Mild Pain (scale 0-3)/T>100.7 Last Admin: 04/03/18 20:17 Dose: 650 mg Dextrose (D50w Syringe) 0 gm IV X1 PRN; Protocol PRN Reason: Hypoglycemia Docusate Sodium (Colace) 200 mg PO BID PRN PRN PRN Reason: Constipation Famotidine (Pepcid) [address] [facility] Last Admin: 04/04/18 08:41 Dose: 20 mg Gabapentin (Neurontin) [address] [facility] Last Admin: 04/04/18 08:41 Dose: 200 mg Glucagon () 1 mg IM .X1 PRN PRN Reason: Hypoglycemia Sodium Chloride () 1,000 mls @ 100 mls/hr IV .Q10H [facility] Last Admin: 04/04/18 05:11 Dose: 100 mls/hr Cefepime HCl 2 gm/ Sodium (Chloride) 100 mls @ 200 mls/hr IV Q8 [facility] Last Admin: 04/04/18 05:12 Dose: 200 mls/hr Ibuprofen (Motrin) [address] [facility] Last Admin: 04/04/18 05:12 Dose: 600 mg Lorazepam (Ativan) 0.5 mg PO TID PRN PRN Reason: ANXIETY Morphine Sulfate () 1 - 2 mg IV Q4H PRN PRN PRN Reason: Moderate Pain (pain scale 4-5) Last Admin: 04/03/18 23:18 Dose: 2 mg Prochlorperazine Maleate (Compazine Tablet) 5 mg PO Q6H PRN PRN PRN Reason: NAUSEA Last Admin: 04/01/18 14:25 Dose: 5 mg Promethazine HCl (Phenergan) 12.5 mg IV Q4H PRN PRN PRN Reason: NAUSEA/VOMITING Last Admin: 04/03/18 23:18 Dose: 12.5 mg Sodium Chloride () 5 - 30 ml IV UD PRN PRN Reason: SALINE FLUSH Last Admin: 04/03/18 23:16 Dose: 30 ml Medical Necessity - Tobacco Use Smoking Status: Never smoker Assessment/Plan All Active Problems Left axillary cellulitis with abscess (Acute) 1. Left axillary abscess and cellulitis s/p I&D * Failed outpatient treatment. Status post I&D. * Is afebrile. On IV cefazolin 2gram q8 * CT of axilla showed left axillary lymphadenomapthy and increased soft tissue density with overlying skin thickening consistent with phlegmon * wound cultured Staph aureus; blood cultures were initially negative. REpeat blood culture pending his initial blood cultures cultured a gram-negative organism but it is thought to be a contaminant. Antibiotics were switched empirically to cefepime to cover for the gram-negative. However, cefepime doesnt cover Staph. * I called microbiology and discussed with them; according to them, they suspect that there was a precipitant on the plate and that is what may have been confused as a gram-negative organism. However they did not think that cultures have been grew anything at all. Blood cultures be repeated. * Discussed with Dr. Arnold. He expressed concern that infection did not seem like a typical staph infection and is concerned that if steroids might be involved. I will therefore start IV clindamycin which will cover both staph and diphtheroids. * on tyelenol and morphine; gabapentin added on as patient is concerned about effects of opiates * 2. Morbid obesity: counselled about healthy diet and exercise DVT prophylaxis: SCDs; encourage ambulation Code Visit Inpatient E&M: 60333 Subs Hosp L2
[2018-04-04] MEDS: Acetaminophen 325 MG Tablet 650 MG PO (10:01)
--- NOTE | 2018-04-04 11:14 | PCM.PN.SRG ---
Patient Problems: Active and Suspected Problems Left axillary cellulitis with abscess (Acute) Subjective: improved pain - Physical Exam Musculoskeletal: - - less drainage, improved cellulitis, continued induration Vital Signs Temp Pulse Resp BP Pulse Ox 98.4 F 68 16 115/69 99 04/04/18 08:38 04/04/18 08:38 04/04/18 08:38 04/04/18 08:38 04/04/18 08:38 Oxygen Delivery Method Room Air Weight: 131.258 kg Body Mass Index (BMI) 45.3 Finger Stick Blood Glucose 93 Intake and Output for Last 24 Hours 04/02/18 04/03/18 04/04/18 23:59 23:59 23:59 Intake Total 2945 / 2945 3268 / 3268 856 / 856 Balance 2945 / 2945 3268 / 3268 856 / 856 Microbiology Past 72 Hours 04/02/18 16:30 Gram Stain - Final Wound Abcess - Axillary Wound Culture - Final Staphylococcus aureus 04/01/18 11:45 Blood Culture - Preliminary Blood Culture (Wb) - Left Hand 04/01/18 11:25 Blood Culture - Preliminary Blood Culture (Wb) - Right Hand No growth in 48 hours. 04/01/18 14:45 Gram Stain - Final Wound Abcess - Axillary Wound Culture - Final Staphylococcus aureus Gram positive modesta Anaerobic Culture - Preliminary Checking for anaerobes, further studies to follow. Laboratory Tests Past 24 Hrs 04/04/18 04/04/18 05:06 05:06 WBC 8.1 RBC 4.10 L Hgb 10.8 L Hct 34.3 L MCV 83.7 MCH 26.3 L MCHC 31.5 L RDW 14.0 RDW Differential 42.9 Plt Count 340 MPV 10.9 Immature Gran % (Auto) 0.600 Neut % (Auto) 49.5 Lymph % (Auto) 40.0 [place]as % (Auto) 7.3 Eos % (Auto) 2.2 Baso % (Auto) 0.4 Absolute Neuts (auto) 4.0 Absolute Lymphs (auto) 3.25 Total Counted Not Reportable Sodium 142 Potassium 4.1 Chloride 109 H Carbon Dioxide 26.0 Anion Gap 7 BUN 11 Creatinine 0.69 Estim Creat Clear Calc 116.99 Est GFR (MDRD) Af Amer 129 Est GFR (MDRD) Non-Af 107 BUN/Creatinine Ratio 16.0 Glucose 82 Calcium 8.1 L Medical Necessity - Tobacco Use Smoking Status: Never smoker Assessment/Plan All Active Problems Left axillary cellulitis with abscess (Acute) left axillary complicated abscess - status post incision and drainage with counter incision of somewhat complicated left axillary abscess the packing was removed this morning. Overall, induration, inflammation is improving with no undrained fluctuance noted. Patient still had considerable pain. Has concerns about vomiting with all narcotics. gabapentin seeming to help with arm pain. culture had ? gram + modesta. would consider clindamycin if really diphthroids
[2018-04-04 14:28] VITALS: BP 124/76; PULSE 103; RESP 18; TEMP 37.1; O2SAT 99
[2018-04-04 21:18] VITALS: BP 122/84; PULSE 84; RESP 16; TEMP 36.7; O2SAT 99
[2018-04-05 05:52] VITALS: BP 111/66; PULSE 71; RESP 16; TEMP 36.6; O2SAT 97
[2018-04-05] MEDS: Ibuprofen 600 MG Tablet PO ×2 (05:55→13:35)
[2018-04-05] MEDS: 0.9% NaCl Peripheral Flush Adult/Peds IV (05:56)
[2018-04-05 08:00] VITALS: BP 121/85; PULSE 67; RESP 14; TEMP 36.6; O2SAT 98
--- NOTE | 2018-04-05 10:13 | NURSING ---
PT RESTING QUIETLY IN BED WITH EYES CLOSED, RESP EASY
--- NOTE | 2018-04-05 10:50 | PCM.DC ---
- Discharge Diagnoses Current Active Problems: Current Active and Chronic Problems Left axillary cellulitis with abscess (Acute) Morbid obesity (Chronic) H/o Right axillary cellulitis/abscess (Chronic) You will use the following diet at home:: Regular Your food should be the consistency of: Regular Discharge Activity: May Not Drive Call your doctor if you observe: Fever of 101 or Higher, Numbness or Tingling, Inability to have a bowel movement, Shortness of breath Allergies/Adverse Reactions: Allergies hydromorphone HCl [From Dilaudid] Allergy (Verified 02/25/15 22:45) Other acetaminophen [From Vicodin] Adverse Reaction (Verified 04/01/18 11:08) Vomiting hydrocodone [From Vicodin] Adverse Reaction (Verified 04/01/18 11:08) Vomiting ketorolac tromethamine [From Toradol] Adverse Reaction (Verified 02/25/15 22:45) Other feels like bugs are crawling on her oxycodone [From Percocet] Adverse Reaction (Verified 04/01/18 11:08) Vomiting Medications to take at Discharge Lorazepam [Ativan] 0.5 mg PO TID PRN #10 tablet 07/17/14 Famotidine [Pepcid] 20 mg PO BID 10/23/15 proCHLORPERazine tablet [Compazine tablet] 5 mg PO Q6H PRN PRN 10/23/15 Divalproex Sodium [Depakote] 125 mg PO BIDCM 04/01/18 Clindamycin [Cleocin] 300 mg PO 4X/DAY #20 cap 04/05/18 Lactobacillus Acidophilus [Acidophilus] 1 tablet PO TID tablet 04/05/18 The following prescriptions were given: Clindamycin [Cleocin] 300 mg PO 4X/DAY #20 cap Primary Care Physician: [facility] ,Out of [Primary Care Provider] - Test Results: Test results from this visit will be discussed in further detail at your follow-up appointment, if applicable. Please Follow Up With: Jorje Arnold MD When: in 1-2 weeks
--- NOTE | 2018-04-05 10:54 | PCM.DC.SUM ---
Discharge Date and Diagnosis Date of Admission: 04/01/18 Date of Discharge: 04/05/18 - Primary Discharge Diagnosis Active and Suspected Problems Left axillary cellulitis with abscess (Acute) Left axillary complicated abscess and phlegmon secondary to MSSA status post incision and drainage - Secondary Discharge Diagnosis Chronic Problems Morbid obesity (Chronic) H/o Right axillary cellulitis/abscess (Chronic) Hospital Course and Treatment Summary of Care Provided: [] The patient is a 27 year old F with no significant past medical history came to ER with left axillary pain, swelling consistent with abscess. Patient pain, discomfort started about 2 weeks ago but it gotten really worse with swelling, pain and fever last Thursday. She went to urgent care on Thursday and was given Keflex. She was not able to keep Keflex down and vomited or spit it out. Then she has been going to [facility] and saw CURTIS Pacheco Dr. yesterday and had incision and drainage but no significant pus came out. In ED, she has temperature 99.9?F, heart rate in 90s with mild leukocytosis 11.[address] scan of axillary region in which showed left axillary lymphadenopathy, largest 1 1.9 cm. Increased soft tissue density of 5 x 3.6 x 4.8 cm with overlying skin thickening consistent with phlegmon. Patient was seen and examined today. No fever for more than 72 hours Pain in left axillary region is much better. Patient can lift arm, overhead abduction. On exam General: Alert, Oriented x3, Cooperative HEENT: Atraumatic, PERRLA, EOMI, Normocephalic Neck: Supple, No JVD, Negative Carotid Bruits Lungs: Clear to auscultation, Normal air movement Cardiovascular: Regular rate, Regular Rhythm, Normal S1, Normal S2, No murmurs Abdomen: Bowel Sounds Present, Soft, Non Tender, Non-Distended Extremities: No edema, Capillary Refill Less than 3 Seconds Skin: No rashes, No breakdown, Left axillary swelling and tenderness much improved. Left axillary incision and drainage done. Musculoskeletal: No Tenderness to Palpation of Joints or Extremities Neurological: Cranial nerves II-XII grossly intact Psych/Mental Status: Normal Affect, Appropriate Hospital course and management Patient was admitted on regular [facility] floor after she failed outpatient treatment as mentioned above. Initially patient was started on IV cefazolin 2 g every 8 hourly. General surgery was consulted. Patient complicated left axillary abscess for which counterincision was made. This was being managed by Dr. Moreno. With IV antibiotics, Motrin and gabapentin inflammation has improved with decreased induration tenderness and swelling. Wound culture shows staph aureus, MSSA and gram-positive modesta; which is possible diphtheroid. Preliminary blood culture shows gram-positive modesta possible diphtheroids/skin contamination. Patient antibiotic was changed to IV clindamycin. Patient is discharged on 5 more days of clindamycin. Patient has allergy with opioid medications therefore advised [id number] Motrin. Follow-up Dr. Moreno in 1 to 2 weeks. Discharge medication reconciliation done. Diagnosis: Left axillary complicated abscess secondary to MSSA and inflammation status post incision and drainage Discharge Activity: May Not Drive Call your doctor if you observe: Fever of 101 or Higher, Numbness or Tingling, Inability to have a bowel movement, Shortness of breath Home Medications: Medications to take at Discharge Lorazepam [Ativan] 0.5 mg PO TID PRN #10 tablet 07/17/14 Famotidine [Pepcid] 20 mg PO BID 10/23/15 proCHLORPERazine tablet [Compazine tablet] 5 mg PO Q6H PRN PRN 10/23/15 Divalproex Sodium [Depakote] 125 mg PO BIDCM 04/01/18 Clindamycin [Cleocin] 300 mg PO 4X/DAY #20 cap 04/05/18 Lactobacillus Acidophilus [Acidophilus] 1 tablet PO TID tablet 04/05/18 Following Prescrptions Were Given to Patient: Clindamycin [Cleocin] 300 mg PO 4X/DAY #20 cap Primary Care Physician: Ana Laura Casanova,Out of [Primary Care Provider] - Please Follow Up With: Jorje Arnold MD When: in 1-2 weeks Medical Necessity - Tobacco Use Smoking Status: Never smoker Meaningful Use Info Meaningful Use Diagnoses (Choose all that apply): None applicable Code Visit Inpatient E&M: 81917 Disch Hosp
[2018-04-05] MEDS: Famotidine 20 MG Tablet PO (10:58)
[2018-04-05] MEDS: Divalproex Sodium 125 MG Tablet PO (10:58)
[2018-04-05 11:26] VITALS: BP 123/83; PULSE 72; RESP 18; TEMP 36.2; O2SAT 99
--- NOTE | 2018-04-05 11:26 | NURSING ---
PT C/O MID CHEST PAIN. STATES HURTS TO TAKE DEEP BREATH. VSS. O2 SAT 99% ON RA. TEXT TO DR MAE REGARDING SAME.
--- NOTE | 2018-04-05 11:38 | EKG12_ITS ---
Test Reason : CP Blood Pressure : / mmHG Vent. Rate : 066 BPM Atrial Rate : 066 BPM P-R Int : 152 ms QRS Dur : 074 ms QT Int : 396 ms P-R-T Axes : 036 018 021 degrees QTc Int : 415 ms Normal sinus rhythm with sinus arrhythmia Normal ECG Confirmed by IQRA SOMMER, TC ([id number]), web editor THOM KOCH ([id number]) on 04/06/2018 2:56:58 PM Referred By: TU Confirmed By:TC ESCALONA MD
[2018-04-05 16:08] VITALS: BP 144/94; PULSE 86; RESP 18; TEMP 35.8; O2SAT 98
[2018-04-05 16:20] VITALS: BP 144/94; PULSE 86; RESP 18; TEMP 35.8; O2SAT 98
--- NOTE | 2018-04-05 18:02 | PN.SURG_ITS ---
Subjective: pain, less radicular pain down the arm. - Physical Exam Extremities: - - significant decrease in erythema and induration. Still some induration around incision sites. Minimal purulent drainage Vital Signs Temp Pulse Resp BP Pulse Ox 96.5 F L 86 18 144/94 H 98 04/05/18 16:20 04/05/18 16:20 04/05/18 16:20 04/05/18 16:20 04/05/18 16:20 Oxygen Delivery Method Room Air Weight: 131.258 kg Body Mass Index (BMI) 45.3 Finger Stick Blood Glucose 93 Intake and Output for Last 24 Hours 04/03/18 04/04/18 04/05/18 23:59 23:59 23:59 Intake Total 3268 / 3268 2374 / 2374 193 / 1934 Balance 3268 / 3268 2374 / 2374 1933 / 1933 Microbiology Past 72 Hours 04/01/18 11:45 Blood Culture - Preliminary Blood Culture (Wb) - Left Hand Gram positive modesta 04/02/18 16:30 Gram Stain - Final Wound Abcess - Axillary Wound Culture - Final Staphylococcus aureus Anaerobic Culture - Preliminary No growth in 48 hours. 04/01/18 11:25 Blood Culture - Preliminary Blood Culture (Wb) - Right Hand No growth in 48 hours. 04/01/18 14:45 Gram Stain - Final Wound Abcess - Axillary Wound Culture - Final Staphylococcus aureus Gram positive modesta Anaerobic Culture - Preliminary Checking for anaerobes, further studies to follow. Laboratory Tests Past 24 Hrs 04/05/18 11:55 Troponin I < 0.015 Medical Necessity - Tobacco Use Smoking Status: Never smoker Assessment/Plan All Active Problems Left axillary cellulitis with abscess (Acute) left axillary complicated abscess - status post incision and drainage with counter incision of somewhat complicated left axillary abscess the packing was removed this morning. Overall, induration, inflammation is improving with no undrained fluctuance noted. Patient still had considerable pain. Has concerns about vomiting with all narcotics. gabapentin seeming to help with arm pain. follow-up culture did not demonstrate gram positive rods. Okay with either clindamycin or Keflex for discharge. Would have patient follow up with my physician's administrative assistant coordinator-Tara Ortiz-in one week.
--- NOTE | 2018-04-07 07:43 | NURSING ---
Results were called to this nurse during my shift at around 0100 for Gram + cocci in chains for this pt who had been discharged. I spoke this am with my front office assistant, Teja, and he called down to lab and advised them that we are not responsible for calling labs to pts that have been discharged. He asked that the report be amended to remove my name as the person who was notified, and to follow their protocol for discharged pts. They agreed to do so.
== END 2018-04-05 16:20 | disposition home or self-care (01) | DRG 603 ==
LOC: ED 11:40 → MS3 12:57
PROVIDERS: Student in an Organized Health Care Education/Training Program; Admitting Provider Internal Medicine; Emergency Provider Emergency Medicine; Visit Provider Internal Medicine
DX: L02.412 Cutaneous abscess of left axilla (principal); Z68.42 Body mass index [BMI] 45.0-49.9, adult; L03.112 Cellulitis of left axilla; E66.01 Morbid (severe) obesity due to excess calories; B95.61 Methicillin susceptible Staphylococcus aureus infection as the cause of diseases classified elsewhere
CPT/HCPCS: 36415; 73201; 80048; 80053; 83605; 84484; 84703; 85025; 87040; 87070; 87075; 87077; 87149; 87186; 87205; 87640; 87641; 93005; 99283; J7030; Q9967; A4216; J2405

== ENCOUNTER 2018-12-31 07:39 | Emergency (ER) | payer BC, MEDICAID, SELFPAY ==
[2018-12-31 07:41] VITALS: BP 128/84; PULSE 68; RESP 12; TEMP 36.6; O2SAT 98; BMI 44.6
[2018-12-31 07:48] VITALS: BP 132/88; PULSE 72; RESP 16; O2SAT 98
--- NOTE | 2018-12-31 07:52 | RAD_ITS ---
STUDY: X-RAY CHEST REASON FOR EXAM: Female, 28 years old. Unresponsive TECHNIQUE: PA and lateral views of the chest. COMPARISON: None. FINDINGS: The lungs are clear and expanded. There is no demonstrated pleural abnormality. Normal size heart. Normal mediastinum and stella. Normal visualized pulmonary arteries. Normal visualized aortic arch and descending thoracic aorta. Normal visualized thoracic spine. Normal visualized ribs, clavicles, and shoulders. There is no demonstrated abnormality of the visualized soft tissue structures of the upper abdomen. RAD/Chest PA and Lateral IMPRESSION: Normal x-ray examination of the chest. Electronically Signed: Geno Chavez, at 9:57 EDT Tel , Service support ,
--- NOTE | 2018-12-31 07:52 | EKG12_ITS ---
Test Reason : ANXIETY Blood Pressure : / mmHG Vent. Rate : 074 BPM Atrial Rate : 074 BPM P-R Int : 134 ms QRS Dur : 080 ms QT Int : 410 ms P-R-T Axes : 035 024 024 degrees QTc Int : 455 ms Normal sinus rhythm Normal ECG Confirmed by TEJAL SOMMER, SAVANA ([id number]), newspaper editor managing ANJALI OLIVARES ([id number]) on 01/03/2019 1:42:23 PM Referred By: EMMA Confirmed By:SAVANA TOURE MD
--- NOTE | 2018-12-31 07:52 | CT_ITS ---
STUDY: CT BRAIN WITHOUT CONTRAST REASON FOR EXAM: Female, 28 years old. CONFUSION, POSSIBLE SEIZURE RADIATION DOSAGE (If Supplied By Facility): CTDIvol = ( 44.99 ) mGy, DLP = ( 745.49 ) mGycm TECHNIQUE: Transaxial CT imaging of the brain was performed without administration of intravenous contrast material. Individualized dose optimization techniques were used for this CT. COMPARISON: No relevant priors. FINDINGS: Normal soft tissue structures. Normal calvarium. Normal size ventricles and extra-axial spaces for the patient's age. Normal white matter tracts of the cerebral hemispheres. Normal basal ganglia and thalami. Normal brainstem. Normal cerebellum. There is no intracranial hemorrhage. There are no findings of an acute ischemic infarction. Normal visualized paranasal sinuses. CT/Brain/Head without Contrast IMPRESSION: Normal unenhanced CT scan of the brain. Electronically Signed: Pawel Rodriguez MD at 9:55 EDT Tel , Service support ,
--- NOTE | 2018-12-31 07:54 | ED.DCSUM_ITS ---
- ER Visit Summary Date of Service: 12/31/18 Chief Complaint: Confusion History of Present Illness: The patient is a 28 F presents to the emergency department confusion and change in mental status. The patient has a history of PTSD. She states she is been off medications for some time. He states she has been under significant amount of stress lately. She was staying with her boyfriend last night. States that he had intercourse and she thinks that she had a syncopal episode. States when she came through, she was having a difficult time speaking but was still able to write. She was having significant pain on the right side of her body. Shortly thereafter, she began to have paresthesias of all her extremities. She is also had a mild headache. She has had similar symptoms before with anxiety reaction. However, she states she is never passed out. She denies any drug or alcohol use. She denies any thoughts of self-harm. She has otherwise been in her normal state of health. Physical Examination: Vital signs reviewed General: Well-nourished, well-developed Head: Normocephalic, atraumatic Eyes: Pupils equal and reactive, extraocular muscles intact Neck, supple, no lymphadenopathy Heart: Regular rate and rhythm Respiratory: No distress, clear bilaterally Abdomen: Soft, nontender, nondistended, no peritoneal signs Back: Nontender Extremities: Nontender, no edema, no cords Skin: Normal color no rash Neuro: Alert and oriented, no focal or lateralizing deficits Test Results: [] Emergency Department Course and Treatment: The patient presents to the emergency department change in mental status. I am unsure if this was a seizure versus a physical manifestation of her underlying stress disorder. She is awake and alert. She has a normal neurologic examination. She is not meningitic. She is not encephalopathic. Her significant other who is in the room describes that she had some chaotic shaking but was able to speak throughout it. Her mental status was apparently waxing and waning for squad, but every time that she had a sternal rub, she would wake and yell at them. My suspicion for dangerous process is low, history I did obtain a broad metabolic work-up. Head CT was obtained which was unremarkable. Chest x-ray is unremarkable. Screening labs were unremarkable. Tox was negative. Patient was given Motrin and Ativan. She was observed. She had marked improvement of symptoms. I am leaning more towards this being an acute stress reaction. I do not suspect a dangerous process at this point. I do feel that she can safely be discharged and follow- up as an outpatient. She is comfortable with this plan of care. Treatment Plan: [] Disposition: Discharged Impression: 1. Change in mental status-resolved This note was generated with [employer] dictation software. It may contain incorrect words, spelling, and punctuation that were not noted in review of the chart prior to signing ED Disposition - Plan for ED Patient: Instructions: Altered Loc Prescriptions: Lorazepam [Ativan] 1 mg PO TID #10 tab Prescription Printed Referrals: [facility] Doctor,Out of [NON-STAFF] -
[2018-12-31 08:14] LABS: Mucous, Urine 0 SEEN /hpf (<or=2+); Red Blood Cells-Urine 0 SEEN /hpf (0-5); White Blood Cells 0 SEEN /hpf (0-5)
[2018-12-31 08:16] LABS: Color, Urine Yellow (Yellow); Glucose, Dipstick Normal (Normal); Ketone-Dipstick Negative (Negative); Leukocyte Esterase-Dipstick Negative /ul (Negative); Nitrite-Dipstick Negative (Negative); Occult Blood-Urine Negative /ul (Negative); Protein-Dipstick Negative (Negative); Specific Gravity, Urine 1.015 (1.002-1.030); Urine Bilirubin Dipstick Negative (Negative); Urine Clarity Sl. Cloudy (Clear); Urine Urobilinogen Normal (Normal); Urine pH 6.5 (5.0 - 8.0)
[2018-12-31 08:20] LABS: Internal QC Validated? YES +Cl - CLEAR BKGD; Pregnancy, Urine Negative Negative
[2018-12-31 08:24] LABS: Bacteria 1+ /hpf (None Seen); Squamous Epithelial Cells - UA 0-5 SEEN /hpf (5-10)
[2018-12-31 08:28] LABS: Amphetamine Urine VISTA NEGATIVE (<1000 ng/mL); Barbiturate Urine VISTA NEGATIVE (< 200 ng/mL); Benzodiazepine Urine VISTA NEGATIVE (< 200 ng/mL); Cocaine Urine VISTA NEGATIVE (< 300 ng/mL); Ecstacy Urine VISTA NEGATIVE (< 500 ng/mL); Methadone Urine VISTA NEGATIVE (< 300 ng/mL); PCP Urine VISTA NEGATIVE (< 25 ng/mL); THC Urine VISTA NEGATIVE (< 50 ng/mL); Vista UDS pH Range 6
[2018-12-31 08:49] LABS: Absolute Lymphocyte Count 1.84 X10^3/ul (0.83-4.51); Absolute Neutrophil Count 7.9 X10^3/uL (2.0-7.7); Basophil# 0.03 X10^3/uL; Basophil% 0.3 % (0-1); Eosinophil# 0.06 X10^3/uL; Eosinophils% 0.6 % (0-5); Hematocrit 39.1 % (37-47); Hemoglobin 12.8 g/dl (12.0-15.0); Lymphocyte # 1.84 X10^3/ul (4.0); Lymphocyte % 17.5 % (19-41); Mean Corp Hgb Conc 32.7 g/gl (32-36); Mean Corpuscular Hgb 27.1 pg (27.0-32.0); Mean Corpuscular Volume 82.7 fL (81-99); Monocyte# 0.71 X10^3/uL; Monocyte% 6.7 % (0-10); Neutrophil # 7.86 X10^3/uL (2.7-7.7); Neutrophil % 74.7 % (47-70); Platelet Count 293 K/mm3 (150-450); RBC Distribution Width CV 14.2 % (11.6-14.6); RBC Distribution Width SD 42.7 fl (35.1-43.9); Red Blood Count 4.73 M/mm3 (4.2-5.4); White Blood Count 10.5 K/mm3 (4.4-11.0)
[2018-12-31 08:50] LABS: POSITIVE COUNT NO; POSITIVE DIFFERENTIAL NO; POSITIVE MORPHOLOGY NO
[2018-12-31 09:05] LABS: ALB/GLOB Ratio 0.9 RATIO (0.9-2.4); AST(SGOT) 12 U/L (15-37); Alanine Aminotransfer ALT/SGPT 14 U/L (13-56); Albumin, Serum 3.4 g/dL (3.2-5.0); Alkaline Phosphatase 72 U/L (45-117); Anion Gap 5 (5-15); BUN 10 mg/dL (7-18); BUN/Creat Ratio 13.2 RATIO (10-20); Calcium,Total 8.6 mg/dL (8.5-10.1); Chloride 110 mmol/L (98-107); Creatinine, Serum 0.76 mg/dL (0.55-1.02); EST Glomerular Filtration Rate 95 mL/min (>60); Est Glom Filt Rate - Afr Amer 115 mL/min (>60); Estimated Creatinine Clearance 105.26 ml/min; Globulin 3.8 g/dL (2.2-4.2); Glucose 105 mg/dL (74-106); Potassium 3.7 mmol/L (3.5-5.1); Protein, Total 7.2 g/dL (6.4-8.2); Sodium Level 141 mmol/L (136-145)
[2018-12-31] MEDS: LORazepam 1 MG Tablet PO (09:06)
[2018-12-31] MEDS: Ibuprofen 600 MG Tablet PO (09:12)
[2018-12-31 09:44] VITALS: BP 108/65; PULSE 67; RESP 16; O2SAT 98
[2018-12-31 10:07] VITALS: BP 103/68; PULSE 68; RESP 16; O2SAT 98
== END 2018-12-31 10:10 | disposition home or self-care (01) ==
PROVIDERS: Emergency Provider Emergency Medicine
DX: R41.82 Altered mental status, unspecified (principal); F41.1 Generalized anxiety disorder
CPT/HCPCS: 70450; 71046; 80053; 80307; 81001; 81025; 85025; 93005; 99285; J7030; A4216

== ENCOUNTER → 2020-02-23 | Outpatient (CLI) | payer MEDICAID, SELFPAY ==
[2020-02-25 03:07] LABS: Chlamydia By Nucleic Acid AMP Negative (Negative)
[2020-02-25 07:31] LABS: Gonococcus By Nucleic Acid AMP Negative (Negative)
== END | disposition home or self-care (01) ==
LOC: LABSPEC 13:13
PROVIDERS: Visit Provider Obstetrics & Gynecology
DX: Z11.3 Encounter for screening for infections with a predominantly sexual mode of transmission (principal)
CPT/HCPCS: 87491; 87591

== ENCOUNTER 2021-09-23 23:46 | Emergency (ER) | payer MEDICAID, SELFPAY ==
[2021-09-23 23:47] VITALS: BP 168/90; PULSE 90; RESP 18; TEMP 36.4; O2SAT 100; BMI 47.0
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
[2021-09-24] MEDS: Ondansetron ODT 4 MG Tablet PO (00:25)
[2021-09-24] MEDS: traMADol 50 MG Tablet 100 MG PO (00:25)
[2021-09-24] MEDS: cycloBENZAPRine HCl 10 MG Tablet PO (00:25)
== END 2021-09-24 00:32 | disposition home or self-care (01) ==
LOC: ED 09-24 00:23
PROVIDERS: Emergency Provider Emergency Medicine; PCP Family Medicine; Visit Provider Emergency Medicine
DX: S14.3XXA Injury of brachial plexus, initial encounter (principal); X58.XXXA Exposure to other specified factors, initial encounter; Y93.39 Activity, other involving climbing, rappelling and jumping off; Y99.8 Other external cause status
CPT/HCPCS: 99283

== ENCOUNTER 2021-10-28 09:00 | Outpatient (RCR) | payer MEDICAID, SELFPAY ==
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
--- NOTE | 2021-10-02 10:21 | OTREVAL_ITS ---
JOSUE REINOSO, It has been my pleasure to treat REINA PALMA over the last 5 visits for left Brachial plexus injury.. Please see the progress note below for an update on the occupational therapy plan of care! Subjective: hospital last week ER . L neck sprained shoulder. higher dose of flexeril and toradol. Pt. stating she has been incarcerated (why she has not been in therapy lately). pt last OT session was on 08/27/21. Objective/Function: R sheet tailer 65#. L 15#. lateral pinch 3#. unable to complete tripod or tip pinch. Pt. has improved with ability to participate in lateral pinch sheet tailer, unable to trial tripod pinch secondary to nail length. RUE AROM- WFL. LUE shoulder shrug, rotation. L elbow flex/ext with assistance. L composite fist, and opposition Plan Frequency: 2-3x /Week Duration: 2 Months Visits in this POC: 72 units Plan: cont LUE AAROM, strengthening Goals - Goals Patient Goals: Regain Mobility, Improve Fine Motor Skills, Decrease Tingling/Numbness, Be More Independent in ADLS, Decrease Sensitivity Goal:: pt will demo biceps MMT 4/5 to increase pts ind.with ADls and IADls by d/c. pt will demo a increase in left sheet tailer strength to 50# or greater to increase pts ind. with ADLs and IADLS. Goal:: pt will demo left shoulder flex to 90* or greater to increase pts ind. with ADLs by d.c. pt will demo left elbow flexion 135* or greater to increase pts ind.with ADLs by d/c Goal:: pt will report a decrease in left UE pain to less than 3/10 with use by d/c Goal:: pt will demo the ability to indicate light touch to left UE to avoid injury by d/c. pt will demo understanding of visual compensation around hot and sharp object to prevent injury by week 2. Goal:: pt will self report she can IND. myriam/doff shirt by d/c Anticipated Interventions Anticipated Interventions: Strengthening, Sensory Retraining, Fine Motor Coord/Sean, Home Program Please do not hesitate to contact me at [phone] by phone or if you have questions or concerns regarding this new plan of care! Sincerely, Erica Pike, OTR/L, CHT
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
--- NOTE | 2021-10-09 09:14 | HP.OTREVAL ---
JOSUE REINOSO, It has been my pleasure to treat REINA PALMA over the last 6 visits for left Brachial plexus injury.. Please see the progress note below for an update on the occupational therapy plan of care! Subjective: Pt. arrived to treatment L hand feels tight. Pt. stating she has a Dr. knight in [place] this week. She wants to talk about having a sx. to help with her shoulder movement. Pt. stating she has been compensating and using family for support. Objective/Function: Pt. stating her daughter assists with donning bra, and that she compensates for all other dressing and bathing. She has zero shoulder flexion. when her arm is supported on table she is able to complete FM tasks with picking up and releasing items. R patent litigation associate 65#. L 15#. lateral pinch 3#. unable to complete tripod or tip pinch. Pt. has improved with ability to participate in lateral pinch patent litigation associate, unable to trial tripod pinch secondary to nail length. RUE AROM-WFL. LUE shoulder shrug, rotation. L elbow flex/ext with assistance. L composite fist, and opposition. S/OT recommended that pt. follow-up with surgeon secondary to recent ER visit and increased pain level. Pt. would benefit from continued therapy to increase LUE AROM and strength for functional use during ADL and IADL tasks. Plan Frequency: 2-3x /Week Duration: 2 Months Visits in this POC: 72 units Plan: cont LUE AAROM, strengthening, ADLs Goals - Goals Patient Goals: Regain Mobility, Improve Fine Motor Skills, Decrease Tingling/Numbness, Be More Independent in ADLS, Decrease Sensitivity Goal:: pt will demo biceps MMT 4/5 to increase pts ind.with ADls and IADls by d/c. pt will demo a increase in left patent litigation associate strength to 50# or greater to increase pts ind. with ADLs and IADLS. Goal:: pt will demo left shoulder flex to 90* or greater to increase pts ind. with ADLs by d.c. pt will demo left elbow flexion 135* or greater to increase pts ind.with ADLs by d/c Goal:: pt will report a decrease in left UE pain to less than 3/10 with use by d/c Goal:: pt will demo the ability to indicate light touch to left UE to avoid injury by d/c. pt will demo understanding of visual compensation around hot and sharp object to prevent injury by week 2. Goal:: pt will self report she can IND. myriam/doff shirt by d/c Anticipated Interventions Anticipated Interventions: Strengthening, Sensory Retraining, Fine Motor Coord/Sean, Home Program Please do not hesitate to contact me at [phone] by phone or if you have questions or concerns regarding this new plan of care! Sincerely, Erica Pike, OTR/L, CHT
--- NOTE | 2021-10-28 11:28 | HP.OTDCSUM_ITS ---
It has been my pleasure to treat REINA PALMA under orders from JOSUE REINOSO, for the diagnosis of left Brachial plexus injury. for a total of 9 visit(s). Please see the following information for a summary of their discharge status. % Improvement: 25 Objective/Function: 15* elbow flexion. 15# stock fitter strength. 0* shoulder flexion. pt. reporting she can don/doff shirts independently. pt agree to D/C and to continue with her HEP. Patient Goals: Regain Mobility, Improve Fine Motor Skills, Decrease Ting ling/Numbness, Be More Independent in ADLS, Decrease Sensitivity Goal:: pt will demo biceps MMT 4/5 to increase pts ind.with ADls and IADls by d/c. pt will demo a increase in left stock fitter strength to 50# or greater to increase pts ind. with ADLs and IADLS. Goal:: pt will demo left shoulder flex to 90* or greater to increase pts ind. with ADLs by d.c. pt will demo left elbow flexion 135* or greater to increase pts ind.with ADLs by d/c Goal:: pt will report a decrease in left UE pain to less than 3/10 with use by d/c Goal:: pt will demo the ability to indicate light touch to left UE to avoid injury by d/c. pt will demo understanding of visual compensation around hot and sharp object to prevent injury by week 2. Goal:: pt will self report she can IND. myriam/doff shirt by d/c Plan: discussed with pt. that today will be her last therapy session. Pt. agreeable and understands. Discharge Comments: Pt. has participated in 8 therapy sessions. on 10-21-21 pt. had: 15* elbow flexion. 15# stock fitter strength. 0* shoulder flexion. pt. reporting she can don/doff shirts independently. C/o pain have been sporadic, but minimal. She can feel pressure through dorsal side of PF. Pt. verbalized understanding of restarting therapy after sx fro brachial plexus repair. If there are questions or concerns regarding this patient's occupational therapy, please fell free to call me at [phone]. Thank you for the referral of this patient. Sincerely, Erica Pike, OTR/L, CHT
== END 2021-10-28 15:33 | disposition home or self-care (01) ==
LOC: OT 09:00
PROVIDERS: PCP Family Medicine
DX: S14.3XXD Injury of brachial plexus, subsequent encounter (principal)
CPT/HCPCS: 97110; 97112; 97167; 97530

== ENCOUNTER 2021-10-31 12:26 | Emergency (ER) | payer MEDICAID, SELFPAY ==
[2021-10-31 12:26] VITALS: BP 137/93; PULSE 94; RESP 18; O2SAT 98
[2021-10-31 12:27] VITALS: BP 142/107; PULSE 106; RESP 16; TEMP 36.4; O2SAT 97; BMI 47.8
--- NOTE | 2021-10-31 12:49 | RAD_ITS ---
STUDY: X-RAY - RIGHT HAND REASON FOR EXAM: Female, 31 years old. Wound TECHNIQUE: 3 view(s) of the hand. COMPARISON: None. FINDINGS: Normal radiocarpal articulation. Normal distal radioulnar joint. Normal visualized carpal bones. Normal carpal articulations Normal carpometacarpal articulation of the thumb. Normal second through fifth carpometacarpal joints. Normal metacarpi. Normal metacarpophalangeal joint of the thumb. Normal interphalangeal joint of the thumb. Normal proximal and distal phalanges of the thumb. Normal metacarpophalangeal joints of the second through fifth fingers. Normal proximal and distal interphalangeal joints of the second through fifth fingers. Normal phalanges of the second through fifth fingers. Diffuse soft tissue swelling of the third and fourth digits. RAD/Hand Min 3 Views IMPRESSION: Diffuse soft tissue swelling of the third and fourth digits. No radiopaque foreign body is seen. Electronically Signed: James Botello MD at 13:57 EDT ,
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
[2021-10-31] MEDS: morphine 8 MG/ML Syringe 4 MG IV (13:04)
[2021-10-31] MEDS: proMETHazine 25 MG/ML Syringe IM ×2 (13:08→15:31)
[2021-10-31 13:17] LABS: Absolute Lymphocyte Count 3.25 X10^3/uL (0.83-4.51); Absolute Neutrophil Count 6.9 X10^3/uL (2.0-7.7); Basophil# 0.05 X10^3/uL; Basophil% 0.4 % (0-1); Eosinophil# 0.09 X10^3/uL; Eosinophils% 0.8 % (0-5); Hematocrit 39.8 % (37-47); Hemoglobin 12.6 g/dL (12.0-15.0); Lymphocyte # 3.25 X10^3/ul (0.83-4.51); Lymphocyte % 29.2 % (19-41); Mean Corp Hgb Conc 31.7 g/dL (32-36); Mean Corpuscular Hgb 27.6 pg (27.0-32.0); Mean Corpuscular Volume 87.1 fL (81-99); Mean Platelet Vol. 10.4 fl (6.2-12.0); Monocyte# 0.79 X10^3/uL; Monocyte% 7.1 % (0-10); NRBC Flagged by Analyzer 0 % (0-5); Neutrophil # 6.89 X10^3/uL (2.7-7.7); Neutrophil % 61.9 % (47-70); Platelet Count 386 K/mm3 (150-450); RBC Distribution Width CV 13.5 % (11.6-14.6); RBC Distribution Width SD 42.5 fl (35.1-43.9); Red Blood Count 4.57 M/mm3 (4.2-5.4); White Blood Count 11.1 K/mm3 (4.4-11.0)
[2021-10-31 13:31] LABS: Anion Gap 3 (5-15); BUN 11 mg/dL (7-18); BUN/Creat Ratio 13.6 RATIO (10-20); Calcium,Total 8.9 mg/dL (8.5-10.1); Chloride 107 mmol/L (98-107); Creatinine, Serum 0.81 mg/dL (0.55-1.02); EST Glomerular Filtration Rate 86 mL/min (>60); Est Glom Filt Rate - Afr Amer 105 mL/min (>60); Estimated Creatinine Clearance 96.07 ml/min; Glucose 83 mg/dL (74-106); Sodium Level 137 mmol/L (136-145)
[2021-10-31] MEDS: morphine 8 MG/ML Syringe 6 MG IV (15:30)
[2021-10-31 16:30] VITALS: BP 122/77; PULSE 98; RESP 18; O2SAT 98
== END 2021-10-31 16:44 | disposition home or self-care (01) ==
PROVIDERS: Emergency Provider Emergency Medicine; PCP Family Medicine; Visit Provider Emergency Medicine
DX: L03.011 Cellulitis of right finger (principal); S61.212A Laceration without foreign body of right middle finger without damage to nail, initial encounter; W26.8XXA Contact with other sharp object(s), not elsewhere classified, initial encounter; Y93.9 Activity, unspecified; Y99.9 Unspecified external cause status; Y92.9 Unspecified place or not applicable
CPT/HCPCS: 73130; 80048; 85025; 87040; 96365; 96366; 96372; 96375; 96376; 99284; J7030; A4216; J0295

== ENCOUNTER → 2022-04-04 | Outpatient (CLI) | payer MEDICAID, SELFPAY ==
[2022-04-04 13:44] LABS: Absolute Lymphocyte Count 3.28 X10^3/uL (0.83-4.51); Basophil# 0.07 X10^3/uL; Basophil% 0.7 % (0-1); Eosinophil# 0.15 X10^3/uL; Eosinophils% 1.5 % (0-5); Hematocrit 42.6 % (37-47); Hemoglobin 13.9 g/dL (12.0-15.0); Lymphocyte # 3.28 X10^3/ul (0.83-4.51); Lymphocyte % 32.4 % (19-41); Mean Corp Hgb Conc 32.6 g/dL (32-36); Mean Corpuscular Hgb 27.6 pg (27.0-32.0); Mean Corpuscular Volume 84.5 fL (81-99); Mean Platelet Vol. 11.2 fl (6.2-12.0); Monocyte# 0.62 X10^3/uL; Monocyte% 6.1 % (0-10); NRBC Flagged by Analyzer 0 % (0-5); Neutrophil # 5.96 X10^3/uL (2.7-7.7); Neutrophil % 58.8 % (47-70); Platelet Count 435 K/mm3 (150-450); RBC Distribution Width CV 13.4 % (11.6-14.6); RBC Distribution Width SD 41.4 fl (35.1-43.9); Red Blood Count 5.04 M/mm3 (4.2-5.4); White Blood Count 10.1 K/mm3 (4.4-11.0)
[2022-04-04 14:08] LABS: Estradiol 70.6 pg/mL; Follicle Stimulating Hormone 5.8 mIU/mL; Luteinizing Hormone 8.1 mIU/mL; T4 Free Direct 1.01 ng/dL (0.76-1.46); Thyroid Stim Hormone (TSH) 0.87 uIU/mL (0.358-3.74)
[2022-04-11 20:07] LABS: Testosterone, Free 0.49 ng/dL (0.10-0.85); Testosterone, Total 15 ng/dL (8-60)
[2022-04-12 10:29] LABS: Testosterone, % Free 3.29 % (0.50-2.80)
== END | disposition home or self-care (01) ==
LOC: LAB 12:42
PROVIDERS: PCP Nurse Practitioner Primary Care; Referring Provider Obstetrics & Gynecology; Visit Provider Obstetrics & Gynecology
DX: F52.0 Hypoactive sexual desire disorder (principal)
CPT/HCPCS: 36415; 82670; 83001; 83002; 84402; 84403; 84439; 84443; 85025

== ENCOUNTER 2022-04-18 09:00 | Outpatient (RCR) | payer MEDICAID, SELFPAY ==
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
--- NOTE | 2022-03-11 06:53 | HP.OTREVAL ---
JOSUE REINOSO, It has been my pleasure to treat REINA PALMA over the last 6 visits for brachial plexus. Please see the progress note below for an update on the occupational therapy plan of care! Subjective: pt states lying down she was able to produce a bicep curl. pt returns to will see what next step is towards her recovery-. pt states she has noticed a increase in strength Objective/Function: pt making gains with strength able to complete a bicep curl while lying down. on fit2 testing resistive force of bicep 3.2# triceps 3# Plan Frequency: 2-3x /Week Duration: 6 Weeks Visits in this POC: 96 units approved Plan: Continue POC. as indicated to increase pts functional strength Goals - Goals Patient Goals: Regain Mobility, Use Hand/Wrist/Arm Normally Again, Be More Independent in ADLS Goal:100% adherence to protocol: Yes Goal:ROM equal to unaffected hand: Yes Goal:Occupational Therapist Assistant/Pinch strength at least 75% of unaffected hand: Yes Goal:Full use of affected hand in daily activities including: Yes Anticipated Interventions Anticipated Interventions: Strengthening, Fine Motor Coord/Sean, Home Program Please do not hesitate to contact me at [phone] by phone or if you have questions or concerns regarding this new plan of care! Sincerely, Erica Pike OTR/L, CHT
--- NOTE | 2022-06-18 14:55 | HP.OT.NRP ---
REINA PALMA was seen in my office for initial evaluation on 02/13/22. The following Plan of Care was established for this patient: Initial Frequency: 2-3x /Week Initial Duration: 6 Weeks Plan: Continue POC. as indicated to increase pts functional strength Anticipated Interventions: Strengthening, Fine Motor Coord/Sean, Home Program This patient was last seen in our office 04/18/22. Pertinent comments regarding their Occupational therapy will appear below: pt was seen for 13 OT visits. pt cancelled and No showed last apt. two attempts to reach her by phone and her number was not correct. at this time due to time lapse in services pt d/c. At this point I will be discontinuing this patient from occupational therapy. I would be happy to see this patient again in the future if found appropriate by the physician. Thank you! Erica Pike, OTR/L, CHT
== END 2022-04-18 19:00 | disposition home or self-care (01) ==
LOC: OT 09:00
PROVIDERS: PCP Family Medicine
DX: S14.3XXD Injury of brachial plexus, subsequent encounter (principal); X58.XXXD Exposure to other specified factors, subsequent encounter
CPT/HCPCS: 97110; 97165; 97166

== ENCOUNTER 2022-05-29 19:34 | Emergency (ER) | payer MEDICAID, SELFPAY ==
[2022-05-29 19:35] VITALS: BP 84/38; PULSE 121; RESP 18; TEMP 36.4; O2SAT 100; BMI 48.4
[2022-05-29 19:43] VITALS: BP 142/109; PULSE 140; RESP 22; O2SAT 100
--- NOTE | 2022-05-29 19:54 | CT_ITS ---
STUDY: CT BRAIN WITHOUT CONTRAST REASON FOR EXAM: Female, 31 years old. mental status change TECHNIQUE: Transaxial CT imaging of the brain was performed without administration of intravenous contrast material. Individualized dose optimization techniques were used for this CT. COMPARISON: 12/31/2018 FINDINGS: Normal calvarium. Normal soft tissues. Normal size ventricles and extra-axial spaces for the patient''s age. Normal white matter tracts of the cerebral hemispheres. Normal basal ganglia and thalami. Normal brainstem. Normal cerebellum. There is no intracranial hemorrhage. There are no findings of an acute ischemic infarction. Normal visualized paranasal sinuses. ASPECTS 10 CT/Brain/Head without Contrast IMPRESSION: There are no acute intracranial findings. Electronically Signed: Clive Wilburn MD at 20:54 EST ,
--- NOTE | 2022-05-29 19:54 | EKG12_ITS ---
Test Reason : DYSRYTHMIA Blood Pressure : / mmHG Vent. Rate : 115 BPM Atrial Rate : 115 BPM P-R Int : 128 ms QRS Dur : 074 ms QT Int : 332 ms P-R-T Axes : 037 012 061 degrees QTc Int : 459 ms Sinus tachycardia Inferior infarct , age undetermined Abnormal ECG Confirmed by IQRA SOMMER, TC ([id number]), field map editor MICKIE PARKINSON ([id number]) on 06/02/2022 11:53:55 AM Referred By: LASHON Confirmed By:TC ESCALONA MD
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
[2022-05-29 20:06] LABS: Bedside Glucose 89 mg/dL (74-106)
[2022-05-29] MEDS: 0.9% Normal Saline 1,000 ML 999 ML IV (20:23)
[2022-05-29 20:35] LABS: Absolute Lymphocyte Count 3.02 X10^3/uL (0.83-4.51); Absolute Neutrophil Count 5.9 X10^3/uL (2.0-7.7); Basophil# 0.03 X10^3/uL; Basophil% 0.3 % (0-1); Eosinophil# 0.05 X10^3/uL; Eosinophils% 0.5 % (0-5); Hematocrit 45.1 % (37-47); Hemoglobin 14.4 g/dL (12.0-15.0); Lymphocyte # 3.02 X10^3/ul (0.83-4.51); Lymphocyte % 31.3 % (19-41); Mean Corp Hgb Conc 31.9 g/dL (32-36); Mean Corpuscular Volume 84.6 fL (81-99); Mean Platelet Vol. 11.5 fl (6.2-12.0); Monocyte# 0.67 X10^3/uL; Monocyte% 6.9 % (0-10); NRBC Flagged by Analyzer 0 % (0-5); Neutrophil # 5.85 X10^3/uL (2.7-7.7); Neutrophil % 60.7 % (47-70); Platelet Count 418 K/mm3 (150-450); Red Blood Count 5.33 M/mm3 (4.2-5.4); White Blood Count 9.7 K/mm3 (4.4-11.0)
[2022-05-29 20:36] LABS: Internal QC Validated? YES +Cl - CLEAR BKGD
--- NOTE | 2022-05-29 20:38 | RAD_ITS ---
STUDY: X-RAY CHEST REASON FOR EXAM: Female, 31 years old. CHEST PAIN tachycardia TECHNIQUE: XR Chest 1 View COMPARISON: 12/31/2018 FINDINGS: There is no demonstrated pleural abnormality. Normal size heart. Normal mediastinum and stella. Normal visualized pulmonary arteries. Normal visualized aortic arch and descending thoracic aorta. Normal visualized thoracic spine. Normal visualized ribs, clavicles, and shoulders. There is no demonstrated abnormality of the visualized soft tissue structures of the upper abdomen. RAD/Chest 1 View (Portable) IMPRESSION: There are no acute findings. Electronically Signed: Clive Wilburn MD at 20:54 EST ,
[2022-05-29 20:42] LABS: Pregnancy, Serum, hCG Quali. NEGATIVE Negative
[2022-05-29 20:53] LABS: ALB/GLOB Ratio 0.9 RATIO (0.9-2.4); AST(SGOT) 43 U/L (15-37); Alanine Aminotransfer ALT/SGPT 60 U/L (13-56); Albumin, Serum 3.9 g/dL (3.2-5.0); Alcohol, Blood (Medical)-Serum < 3.0 mg/dL; Alkaline Phosphatase 77 U/L (45-117); Anion Gap 12 (5-15); BUN 10 mg/dL (7-18); BUN/Creat Ratio 9.7 RATIO (10-20); Calcium,Total 9.2 mg/dL (8.5-10.1); Chloride 102 mmol/L (98-107); Creatinine, Serum 1.03 mg/dL (0.55-1.02); EST Glomerular Filtration Rate 65 mL/min (>60); Est Glom Filt Rate - Afr Amer 79 mL/min (>60); Estimated Creatinine Clearance 72.73 ml/min; Globulin 4.5 g/dL (2.2-4.2); Glucose 94 mg/dL (74-106); Potassium 3.4 mmol/L (3.5-5.1); Protein, Total 8.4 g/dL (6.4-8.2); Sodium Level 137 mmol/L (136-145)
[2022-05-29 21:08] VITALS: BP 140/111; PULSE 106; RESP 29; O2SAT 100
[2022-05-29 21:15] LABS: Color, Urine Yellow (Yellow); Glucose, Dipstick Normal (Normal); Leukocyte Esterase-Dipstick 25 /ul (Negative); Nitrite-Dipstick Negative (Negative); Occult Blood-Urine 10 /ul (Negative); Protein-Dipstick 30 mg/dl (Negative); Urine Clarity Cloudy (Clear); Urine Urobilinogen 1 mg/dl (Normal)
[2022-05-29 21:22] LABS: Urine Bilirubin Dipstick 1 mg/dL (Negative)
[2022-05-29 21:23] LABS: Ketone-Dipstick 150 mg/dl (Negative)
[2022-05-29 21:24] LABS: Bacteria 2+ /hpf (None Seen); Mucous, Urine 1+ /hpf (<or=2+); Red Blood Cells-Urine 0-5 SEEN /hpf (0-5); Squamous Epithelial Cells - UA 5-10 SEEN /hpf (5-10); White Blood Cells 0-5 SEEN /hpf (0-5)
[2022-05-29 21:31] LABS: Amphetamine Urine VISTA NEGATIVE (<1000 ng/mL); Barbiturate Urine VISTA NEGATIVE (< 200 ng/mL); Benzodiazepine Urine VISTA NEGATIVE (< 200 ng/mL); Cocaine Urine VISTA NEGATIVE (< 300 ng/mL); Ecstacy Urine VISTA POSITIVE (< 500 ng/mL); Methadone Urine VISTA NEGATIVE (< 300 ng/mL); PCP Urine VISTA NEGATIVE (< 25 ng/mL); THC Urine VISTA NEGATIVE (< 50 ng/mL); Vista UDS pH Range 6
[2022-05-29] MEDS: LORazepam 2 MG/ML Syringe 1 MG IV (21:42)
[2022-05-29 22:19] VITALS: BP 138/79; PULSE 98; RESP 18; O2SAT 100
== END 2022-05-29 23:12 | disposition home or self-care (01) ==
PROVIDERS: Emergency Provider Emergency Medicine; PCP Nurse Practitioner Primary Care; Visit Provider Emergency Medicine
DX: R42 Dizziness and giddiness (principal); G89.29 Other chronic pain; R20.0 Anesthesia of skin; F43.9 Reaction to severe stress, unspecified; R20.2 Paresthesia of skin
CPT/HCPCS: 70450; 71045; 80053; 80307; 81001; 82077; 82962; 84703; 85025; 93005; 96361; 96374; 99284; J7030; A4216

== ENCOUNTER 2022-07-03 14:52 | Emergency (ER) | payer MEDICAID, SELFPAY ==
[2022-07-03 14:53] VITALS: BP 118/79; PULSE 148; RESP 17; TEMP 37.4; O2SAT 97; BMI 47.2
--- NOTE | 2022-07-03 16:05 | EDS_ITS ---
HPI History of Present Illness Chief Complaint: Sore Throat Narrative Narrative: Presents with sore throat, fevers and some muscle aches for the past few days. She is able to eat and drink however it is quite painful. She has no breathing difficulty. No significant rhinorrhea. No headache. No neck pain or stiffness. No rash PFSH [facility] Medical History Brachial plexus injury Left axillary cellulitis with abscess Home Medications lorazepam 1 mg tablet 1 mg PO TID #10 tabs 12/31/18 [Rx Last Taken Unknown] bupropion HCl 150 mg tablet,12 hr sustained-release (Wellbutrin SR) 150 mg PO BID 09/23/21 [History Last Taken Unknown] cyclobenzaprine 10 mg tablet 10 mg PO TID PRN Pain 09/23/21 [History Last Taken Unknown] duloxetine 60 mg capsule,delayed release (Cymbalta) 60 mg PO DAILY 09/23/21 [History Last Taken Unknown] trazodone 100 mg tablet 100 mg PO QHS 09/23/21 [History Last Taken Unknown] ondansetron 4 mg disintegrating tablet 4 mg PO Q8H PRN nausea and vomiting #10 tabs 09/24/21 [Rx Last Taken Unknown] tramadol 100 mg tablet 100 mg PO TID PRN pain #14 tabs 09/24/21 [Rx Last Taken Unknown] amoxicillin 875 mg-potassium clavulanate 125 mg tablet 1 tab PO BID #20 tabs 10/31/21 [Rx Last Taken Unknown] methylprednisolone 4 mg tablets in a dose pack 10/31/21 [History Last Taken Unknown] promethazine 25 mg tablet 25 mg PO TID PRN nausea and vomiting #14 tabs 10/31/21 [Rx Last Taken Unknown] tramadol 100 mg tablet 100 mg PO TID PRN pain 4 days #14 tabs 10/31/21 [Rx Last Taken Unknown] Allergy/AdvReac Type Severity Reaction Status Date / Time hydromorphone HCl Allergy Other Verified 07/03/22 14:53 [From Dilaudid] vancomycin Allergy Rash Verified 07/03/22 14:53 acetaminophen [From Vicodin] AdvReac Vomiting Verified 07/03/22 14:53 hydrocodone [From Vicodin] AdvReac Vomiting Verified 07/03/22 14:53 oxycodone [From Percocet] AdvReac Vomiting Verified 07/03/22 14:53 Surgical History H/O: hysterectomy Hx of cholecystectomy Social History Smoking Status: Never smoker ROS ROS ED ROS Narrative Past medical history: None Medications: Reviewed Social history: Noncontributory Review of systems: All systems negative except as indicated General: Fevers as in HPI Eyes: No visual changes ENT: As in HPI Neck: No neck pain Cardiovascular: No chest pain Respiratory: No shortness of breath or cough Gastrointestinal: No abdominal pain, nausea vomiting or diarrhea Genitourinary: No dysuria Musculoskeletal: Denies myalgias no difficulty with ambulation Skin: No rash EXAM Physical Exam Narrative Exam Narrative: Physical exam General: Patient appears somewhat uncomfortable. Head: Normocephalic, Atraumatic Eyes: Conjunctiva not pale ENT: Patient has bilateral tonsillar enlargement with exudates and erythema. Soft palate is normal uvula is normal, no signs of peritonsillar abscess. Neck: She has tenderness over the anterior cervical lymph node chains bilaterally but no obvious lymph node enlargement Cardiovascular: Regular rate, Regular rhythm Respiratory: No distress, CTA bilaterally Abdomen: Soft, Nontender, Nondistended Back: Nontender, Normal Inspection. Negative for: CVA tenderness Extremities: Nontender, No edema Skin: Normal color, No rash Neurological: Alert, Normal Strength, Normal Sensation Psychological: Normal affect Const Vital Signs: 07/03/22 14:53 07/03/22 15:48 Temperature 99.4 F H Temperature Source Temporal Pulse Rate 148 H Respiratory Rate 17 Respiratory Effort Normal Respiratory Pattern Normal Blood Pressure 118/79 Blood Pressure Mean 92 Pulse Ox 97 Oxygen Delivery Method Room Air MDM MDM MDM Narrative Medical decision making narrative: Centor score is a 4, because of this I will treat for streptococcal pharyngitis. There are no signs or symptoms of peritonsillar abscess therefore a CT is not warranted currently. I thought about testing for strep however because of the false negative rate of the rapid strep I believe it was reasonable to just treat especially with a Centor score of 4. Discharge Plan Triage Chief Complaint: Sore Throat ED Provider: Jim Man Dx/Rx/DC Orders Clinical Impression: Exudative tonsillitis, Fever Instructions: ED Tonsillitis Prescriptions: No Action lorazepam 1 MG tablet 1 mg PO TID Qty: 10 0RF Label Comments: pt states she is prescribed but does not have any. cyclobenzaprine [Flexeril] 10 mg Tablet 10 mg PO TID PRN (Reason: Pain) bupropion HCl [Wellbutrin SR] 150 mg Tablet Sustained-Release 12 Hr 150 mg PO BID trazodone 100 mg Tablet 100 mg PO QHS duloxetine [Cymbalta] 60 mg Capsule,Delayed Release(Dr/Ec) 60 mg PO DAILY tramadol 100 mg tablet 100 mg PO TID PRN (Reason: pain) Qty: 14 0RF ondansetron 4 mg tablet,disintegrating 4 mg PO Q8H PRN (Reason: nausea and vomiting) Qty: 10 0RF methylprednisolone 4 mg Tablets,Dose Pack tramadol 100 mg tablet 100 mg PO TID PRN (Reason: pain) 4 Days Qty: 14 0RF promethazine 25 mg tablet 25 mg PO TID PRN (Reason: nausea and vomiting) Qty: 14 0RF amoxicillin-pot clavulanate 875-125 mg tablet 1 tab PO BID Qty: 20 0RF Primary Care Provider: Casandra Parada NP Referrals: Casandra Parada NP, DOUBLE HEAD MACHINE OPERATOR-C [Primary Care Provider] - 3-5 Days Disposition Disposition: Home, Self Care
[2022-07-03] MEDS: Ketorolac 30 MG/ML Syringe IM (16:40)
[2022-07-03] MEDS: dexAMETHasone 10 MG/ML Vial PO.IVFORM (16:41)
[2022-07-03] MEDS: Penicillin G Benzathine 1.2 MU/2 ML Syringe IM (16:41)
[2022-07-03 17:02] VITALS: BP 134/78; PULSE 78; RESP 16; O2SAT 98
[2022-07-03 17:04] VITALS: BP 134/78; PULSE 78; RESP 18; TEMP 37.2; O2SAT 99
== END 2022-07-03 17:04 | disposition home or self-care (01) ==
PROVIDERS: Emergency Provider Emergency Medicine; PCP Nurse Practitioner Primary Care; Visit Provider Emergency Medicine
DX: J03.90 Acute tonsillitis, unspecified (principal); R50.9 Fever, unspecified
CPT/HCPCS: 96372; 99282

== ENCOUNTER 2023-07-30 14:18 | Emergency (ER) | payer MEDICAID, SELFPAY ==
[2023-07-30 14:21] VITALS: BP 108/89; PULSE 129; RESP 20; TEMP 37.2; O2SAT 97; BMI 39.2
--- NOTE | 2023-07-30 15:24 | ED.RN ---
pt states sudden headache starting yesterday evening. throbbing, 9/10 pain. n/v and bilateral teeth and ear pain.
--- NOTE | 2023-07-30 15:37 | EX.ED.DYSGE1 ---
HPI History of Present Illness Chief Complaint: Nausea/Vomiting Informant: patient Onset/Context/Timing Onset: Today Narrative Narrative: Patient reports waking this morning with fever, vomiting, body aches, cough. She did take a COVID test this morning that was negative. She denies any known ill exposures. 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 She states she has not been able to keep any medication down secondary to vomiting. [facility] Medical History (Updated 07/30/23 @ 18:[address] Erika Dunn MD) Brachial plexus injury Left axillary cellulitis with abscess Home Medications lorazepam 1 mg tablet 1 mg PO TID #10 tabs 12/31/18 [Rx Last Taken Unknown] bupropion HCl 150 mg tablet,12 hr sustained-release (Wellbutrin SR) 150 mg PO BID 09/23/21 [History Last Taken Unknown] cyclobenzaprine 10 mg tablet 10 mg PO TID PRN Pain 09/23/21 [History Last Taken Unknown] duloxetine 60 mg capsule,delayed release (Cymbalta) 60 mg PO DAILY 09/23/21 [History Last Taken Unknown] trazodone 100 mg tablet 100 mg PO QHS 09/23/21 [History Last Taken Unknown] ondansetron 4 mg disintegrating tablet 4 mg PO Q8H PRN nausea and vomiting #10 tabs 09/24/21 [Rx Last Taken Unknown] tramadol 100 mg tablet 100 mg PO TID PRN pain #14 tabs 09/24/21 [Rx Last Taken Unknown] amoxicillin 875 mg-potassium clavulanate 125 mg tablet 1 tab PO BID #20 tabs 10/31/21 [Rx Last Taken Unknown] methylprednisolone 4 mg tablets in a dose pack 10/31/21 [History Last Taken Unknown] promethazine 25 mg tablet 25 mg PO TID PRN nausea and vomiting #14 tabs 10/31/21 [Rx Last Taken Unknown] tramadol 100 mg tablet 100 mg PO TID PRN pain 4 days #14 tabs 10/31/21 [Rx Last Taken Unknown] diphenhydramine HCl 50 mg tablet (Benadryl Allergy) 50 mg PO TID PRN migraine headache #10 tabs 07/30/23 [Rx Last Taken Unknown] metoclopramide HCl 10 mg tablet (Reglan) 10 mg PO Q6H PRN nausea and vomiting #10 tabs 07/30/23 [Rx Last Taken Unknown] Allergy/AdvReac Type Severity Reaction Status Date / Time hydromorphone HCl Allergy Other Verified 07/30/23 14:21 [From Dilaudid] vancomycin Allergy Rash Verified 07/30/23 14:21 acetaminophen [From Vicodin] AdvReac Vomiting Verified 07/30/23 14:21 hydrocodone [From Vicodin] AdvReac Vomiting Verified 07/30/23 14:21 oxycodone [From Percocet] AdvReac Vomiting Verified 07/30/23 14:21 Surgical History (Updated 07/30/23 @ 15:[address] Erika Dunn MD) H/O gastric bypass H/O: hysterectomy Hx of cholecystectomy Social History Smoking Status: Never smoker ROS ROS ED Constitutional Constitutional ED: Reports fever(s) and subjective; Denies chills Eyes Eyes: Denies change in vision or discharge from eye(s) ENT ENT ED: Denies discharge from eye(s), rhinorrhea or sore throat Cardiovascular Cardiovascular: Denies chest pain or palpitations Respiratory/Chest Respiratory/Chest: Reports cough and dyspnea Gastrointestinal Gastrointestinal: Reports abdominal pain, nausea and vomiting; Denies diarrhea Genitourinary Genitourinary ED: Denies dysuria Musculoskeletal Musculoskeletal: Reports myalgias; Denies back pain or extremity pain Integumentary Denies Abrasions or rash Neurologic Neurologic: Reports headache(s) and weakness Psychiatric Psychiatric: Denies anxiety or depression Allergic/Immunologic Allergic/Immunologic ED: Denies lip swelling or urticaria EXAM Physical Exam Const Vital Signs: 07/30/23 14:21 07/30/23 17:00 Temperature 99 F Temperature Source Oral Pulse Rate 129 H 110 H Respiratory Rate 20 H 16 Blood Pressure 108/89 H 118/51 L Blood Pressure Mean 95 73 Pulse Ox 97 95 Oxygen Delivery Method Room Air Positive well nourished and well developed General Appearance ED: well developed HEENT Reports dry mucous membranes Mouth ED: Yes dry mucous membranes Mouth: dry mucous membranes Eyes EOMs intact bilaterally Chest Wall inspection of chest normal and palpation of chest normal Resp normal respiratory effort and clear to auscultation bilaterally Cardio Rate: tachycardic GI GI Narrative: Abdomen soft with mild epigastric tenderness. No guarding or rebound. Extremity normal to inspection Neuro oriented x3 and no sensory deficits noted Motor Exam: strength 5/5 throughout Psych mental status grossly normal Skin no rashes or lesions noted MDM MDM MDM Narrative Medical decision making narrative: IV line established. Patient given IV fluids along with Zofran and Toradol. Labwork obtained to evaluate for leukocytosis, anemia, and electrolyte derangement. Chest x-ray obtained to evaluate for acute lung pathology, cardiac size, or mediastinal abnormality. Swab for COVID, influenza, and RSV obtained. History & Record Review Discussion w/independent historian: Patient Lab Data Attestation: I reviewed the patient's lab results. Labs: Laboratory Results - last 24 hr 07/30/23 15:50 WBC 5.6 RBC 4.83 Hgb 13.3 Hct 42.2 MCV 87.4 MCH 27.5 MCHC 31.5 L RDW Std Deviation 43.6 RDW Coeff of Timothy 13.6 Plt Count 247 MPV 11.9 Immature Gran % (Auto) 0.500 Neut % (Auto) 70.9 H Lymph % (Auto) 11.7 L Sedgwick % (Auto) 15.8 H Eos % (Auto) 0.4 Baso % (Auto) 0.7 Absolute Neuts (auto) 4.0 Absolute Lymphs (auto) 0.65 L Nucleated RBC % 0 Sodium 137 Potassium 3.7 Chloride 108 H Carbon Dioxide 24.0 Anion Gap 5 BUN 7 Creatinine 0.81 Estim Creat Clear Calc 123.00 Est GFR (MDRD) Af Amer 103 Est GFR (MDRD) Non-Af 85 BUN/Creatinine Ratio 8.6 L Glucose 99 Calcium 9.3 Total Bilirubin 0.40 Direct Bilirubin 0.13 AST 24 ALT 35 Alkaline Phosphatase 94 Total Protein 7.0 Albumin 3.3 Globulin 3.7 Radiography Diagnostic Testing: Clinical Impression(s) from Imaging Studies Chest X-Ray 07/30/23 15:58 IMPRESSION: Suboptimal inspiratory effort without gross infiltration. Cannot definitively exclude mild inflammatory changes in the right lung base . Electronically Signed: Tyler Johnson MD at 16:21 EST , Treatment and Re-Evaluation :: CBC reveals normal white count 5.6 with a hemoglobin of 13.3. 71% neutrophils noted. Chemistry studies unremarkable with normal renal function. LFTs normal. Swab for COVID, influenza, and RSV is negative. Chest x-ray per my interpretation feels no obvious infiltrate. Radiology interpretation reviewed. She has a suboptimal inspiration but no definite infiltrate. On repeat evaluation heart rate is still 110. She complains of headache. She is already been given Toradol IV. She is given Reglan, Benadryl, and Tylenol. At this time patient has received 2 L of IV fluid. She still complains of some headache although slightly improved. She has no evidence of meningismus. I do think this is all related to viral syndrome with some early dehydration. She will push Tylenol at home. I will write her prescriptions for Reglan and Benadryl. We did discuss that her viral test here are negative, however if she continues with symptoms she should be retested as it may just be too early in the course of illness. Return instructions provided. Discharge Plan Triage Chief Complaint: Nausea/Vomiting ED Provider: Erika Dunn Dx/Rx/DC Orders Clinical Impression: Viral syndrome Instructions: ED Viral Syndrome (Adult) Prescriptions: New metoclopramide HCl [Reglan] 10 mg tablet 10 mg PO Q6H PRN (Reason: nausea and vomiting) Qty: 10 0RF Benadryl Allergy 50 mg tablet 50 mg PO TID PRN (Reason: migraine headache) Qty: 10 0RF No Action lorazepam 1 MG tablet 1 mg PO TID Qty: 10 0RF Patient Comments: pt states she is prescribed but does not have any. cyclobenzaprine [Flexeril] 10 mg Tablet 10 mg PO TID PRN (Reason: Pain) bupropion HCl [Wellbutrin SR] 150 mg Tablet Sustained-Release 12 Hr 150 mg PO BID trazodone 100 mg Tablet 100 mg PO QHS duloxetine [Cymbalta] 60 mg Capsule,Delayed Release(Dr/Ec) 60 mg PO DAILY tramadol 100 mg tablet 100 mg PO TID PRN (Reason: pain) Qty: 14 0RF ondansetron 4 mg tablet,disintegrating 4 mg PO Q8H PRN (Reason: nausea and vomiting) Qty: 10 0RF methylprednisolone 4 mg Tablets,Dose Pack tramadol 100 mg tablet 100 mg PO TID PRN (Reason: pain) 4 Days Qty: 14 0RF promethazine 25 mg tablet 25 mg PO TID PRN (Reason: nausea and vomiting) Qty: 14 0RF amoxicillin-pot clavulanate 875-125 mg tablet 1 tab PO BID Qty: 20 0RF Primary Care Provider: Pilar Martin Referrals: Pilar Martin MD [Primary Care Provider] - 1-2 Weeks Podlogar,Casandra REFRIGERATOR REPAIRMAN, REFRIGERATOR REPAIRMAN-C [Non-Staff] - Disposition Disposition: Home, Self Care
--- NOTE | 2023-07-30 15:58 | RAD_ITS ---
STUDY: X-RAY CHEST REASON FOR EXAM: Female, 32 years old. cough TECHNIQUE: AP portable COMPARISON: May 29, 2022 FINDINGS: Suboptimal inspiratory effort is seen. The lungs are clear. Infiltration although there is mildly increased interstitial thickening in the right lower lobe with slightly increased density possibly inflammatory.. There is no demonstrated pleural abnormality. Normal size heart. Normal mediastinum and stella. Normal visualized pulmonary arteries. Normal visualized aortic arch and descending thoracic aorta. Normal visualized thoracic spine. Normal visualized ribs, clavicles, and shoulders. Old healed fracture of the right scapula There is no demonstrated abnormality of the visualized soft tissue structures of the upper abdomen. RAD/Chest 1 View (Portable) IMPRESSION: Suboptimal inspiratory effort without gross infiltration. Cannot definitively exclude mild inflammatory changes in the right lung base . Electronically Signed: Tyler Johnson MD at 16:21 EST ,
[2023-07-30] MEDS: 0.9% Normal Saline (1000mL) 1,000 ML 1000 ML IV (16:04)
[2023-07-30] MEDS: Ondansetron 4 MG/2 ML Vial IV (16:04)
[2023-07-30] MEDS: Ketorolac 15 MG/ML Vial IV (16:05)
[2023-07-30 16:09] LABS: Absolute Lymphocyte Count 0.65 X10^3/uL (0.83-4.51); Basophil# 0.04 X10^3/uL; Basophil% 0.7 % (0-1); Eosinophil# 0.02 X10^3/uL; Eosinophils% 0.4 % (0-5); Hematocrit 42.2 % (37-47); Hemoglobin 13.3 g/dL (12.0-15.0); Lymphocyte # 0.65 X10^3/ul (0.83-4.51); Lymphocyte % 11.7 % (19-41); Mean Corp Hgb Conc 31.5 g/dL (32-36); Mean Corpuscular Hgb 27.5 pg (27.0-32.0); Mean Corpuscular Volume 87.4 fL (81-99); Mean Platelet Vol. 11.9 fl (6.2-12.0); Monocyte# 0.88 X10^3/uL; Monocyte% 15.8 % (0-10); NRBC Flagged by Analyzer 0 % (0-5); Neutrophil # 3.95 X10^3/uL (2.7-7.7); Neutrophil % 70.9 % (47-70); Platelet Count 247 K/mm3 (150-450); RBC Distribution Width CV 13.6 % (11.6-14.6); RBC Distribution Width SD 43.6 fl (35.1-43.9); Red Blood Count 4.83 M/mm3 (4.2-5.4); White Blood Count 5.6 K/mm3 (4.4-11.0)
[2023-07-30 16:22] LABS: AST(SGOT) 24 U/L (15-37); Alanine Aminotransfer ALT/SGPT 35 U/L (13-56); Albumin, Serum 3.3 g/dL (3.2-5.0); Alkaline Phosphatase 94 U/L (45-117); Anion Gap 5 (5-15); BUN 7 mg/dL (7-18); BUN/Creat Ratio 8.6 RATIO (10-20); Bilirubin, Direct 0.13 mg/dL (0.00-0.30); Calcium,Total 9.3 mg/dL (8.5-10.1); Chloride 108 mmol/L (98-107); Creatinine, Serum 0.81 mg/dL (0.55-1.02); EST Glomerular Filtration Rate 85 mL/min (>60); Est Glom Filt Rate - Afr Amer 103 mL/min (>60); Globulin 3.7 g/dL (2.2-4.2); Glucose 99 mg/dL (74-106); Potassium 3.7 mmol/L (3.5-5.1); Sodium Level 137 mmol/L (136-145)
[2023-07-30 17:00] VITALS: BP 118/51; PULSE 110; RESP 16; O2SAT 95
[2023-07-30] MEDS: Acetaminophen 500 MG Tablet 1000 MG PO (17:20)
[2023-07-30] MEDS: DiphenhydrAMINE 50 MG/ML Syringe 25 MG IV (17:20)
[2023-07-30] MEDS: Metoclopramide 10 MG/2 ML Vial 5 MG IV (17:21)
[2023-07-30] MEDS: 0.9% Normal Saline (1000mL) 1,000 ML 150 ML IV (17:21)
[2023-07-30 19:00] VITALS: BP 111/70; PULSE 98; RESP 16; O2SAT 100
== END 2023-07-30 19:00 | disposition home or self-care (01) ==
PROVIDERS: Emergency Provider Emergency Medicine; PCP Internal Medicine; Visit Provider Emergency Medicine
DX: B34.9 Viral infection, unspecified (principal); R11.2 Nausea with vomiting, unspecified; Z98.84 Bariatric surgery status; R50.9 Fever, unspecified
CPT/HCPCS: 71045; 80048; 80076; 85025; 87631; 96361; 96374; 96375; 99282; J7030; A4216; J2405

== ENCOUNTER 2023-12-28 20:20 | Inpatient (IN) | payer MEDICAID, SELFPAY ==
[2023-12-28 20:21] VITALS: BP 131/99; PULSE 100; RESP 18; TEMP 36.7; O2SAT 97; BMI 33.9
--- NOTE | 2023-12-28 20:41 | CT_ITS ---
EXAM: CT ABDOMEN AND PELVIS WITHOUT INTRAVENOUS CONTRAST CLINICAL INDICATION: Pain TECHNIQUE: Helically acquired images were obtained of the abdomen and pelvis without intravenous contrast. This CT exam was performed using one or more of the following dose reduction techniques: automated exposure control, adjustment of the mA and/or kV according to patient size, and/or use of iterative reconstruction technique. COMPARISON: No relevant prior studies available. FINDINGS: LOWER THORAX: No significant abnormality. Lung bases are clear. No cardiomegaly. No significant pericardial effusion. ABDOMEN: LIVER: No significant abnormality. Homogeneous. GALLBLADDER AND BILE DUCTS: Status post cholecystectomy. No intra- or extrahepatic biliary ductal dilation. PANCREAS: No significant abnormality. No focal cystic mass. SPLEEN: No significant abnormality. Normal size without focal cystic or solid mass. ADRENALS: No significant abnormality. No nodules. KIDNEYS AND URETERS: No significant abnormality. Normal renal size and position. No hydronephrosis. STOMACH AND BOWEL: Marked distention of the colon and the rectum predominantly gas-filled with additional low attenuation stool. Status post Masoud-en-Y gastric bypass. No focal inflammatory change. No small bowel distention to suggest bowel obstruction. PELVIS: APPENDIX: No evidence of acute appendicitis. BLADDER: No significant abnormality. REPRODUCTIVE: Status post hysterectomy. ABDOMEN and PELVIS: INTRAPERITONEAL SPACE: No significant abnormality. No ascites or other fluid collection. No free air. BONES/JOINTS: Degenerative changes in the spine. No suspicious lytic or blastic abnormality. SOFT TISSUES: No significant abnormality. No discrete abdominal or pelvic wall hernia. VASCULATURE: No significant abnormality. Abdominal aorta is non-dilated. LYMPH NODES: No significant abnormality. No enlarged lymph nodes. CT/Abdomen/Pelvis without Cont IMPRESSION: 1. No small bowel distention to suggest bowel obstruction. 2. Marked distention of the colon and the rectum predominantly gas-filled with additional low attenuation stool. Correlate for constipation/obstipation. 3. Status post Masoud-en-Y gastric bypass. Electronically Signed: Earnest Garrett DO at 21:29 EDT ,
--- NOTE | 2023-12-28 20:43 | EDS_ITS ---
HPI HPI - GI History of Present Illness Chief Complaint: Abd Pain Detail of Chief Complaint: Abdominal pain Informant: patient Narrative Narrative: Patient presents with abdominal pain that started around 3:30 PM and gradually built up and became severe around 430. Patient describes nausea but no vomiting. She had 1 episode of diarrhea which is not unusual for her being that she had gastric bypass last May. Patient describes the pain is right lower abdomen and radiates to her back. Patient has had cholecystectomy and hysterectomy but still has her ovaries and still has her appendix. Patient denies fevers or urinary symptoms. No history of kidney stones. [facility] Medical History (Updated 12/28/23 @ 22:[address] Zuleyma Rivero, DO) Brachial plexus injury Left axillary cellulitis with abscess Home Medications ?Medication ?Instructions ?Recorded ?Last Taken ?Type lorazepam 1 mg tablet 1 mg PO TID #10 tabs 12/31/18 Unknown Rx cyclobenzaprine 10 mg tablet 10 mg PO TID PRN Pain 09/23/21 Unknown History duloxetine 60 mg capsule,delayed 60 mg PO DAILY 09/23/21 Unknown History release (Cymbalta) trazodone 100 mg tablet 100 mg PO QHS 09/23/21 Unknown History ondansetron 4 mg disintegrating 4 mg PO Q8H PRN nausea and 09/24/21 Unknown Rx tablet vomiting #10 tabs tramadol 100 mg tablet 100 mg PO TID PRN pain #14 tabs 09/24/21 Unknown Rx promethazine 25 mg tablet 25 mg PO TID PRN nausea and 10/31/21 Unknown Rx vomiting #14 tabs diphenhydramine HCl 50 mg tablet 50 mg PO TID PRN migraine headache 07/30/23 Unknown Rx (Benadryl Allergy) #10 tabs metoclopramide HCl 10 mg tablet 10 mg PO Q6H PRN nausea and 07/30/23 Unknown Rx (Reglan) vomiting #10 tabs bupropion HCl 150 mg 24 hr tablet, 150 mg PO DAILY 12/28/23 Unknown History extended release bupropion HCl 300 mg 24 hr tablet, 300 mg PO DAILY 12/28/23 Unknown History extended release cholecalciferol (vitamin D3) 1,250 1,250 mcg PO QWEEK 12/28/23 Unknown History mcg (50,000 unit) capsule erenumab-aooe 70 mg/mL 70 mg subcut QMONTH 12/28/23 Unknown History subcutaneous auto-injector (Aimovig Autoinjector) lamotrigine 100 mg tablet 100 mg PO DAILY 12/28/23 Unknown History loratadine 10 mg tablet 10 mg PO DAILY 12/28/23 Unknown History metoprolol succinate 50 mg 50 mg PO DAILY 12/28/23 Unknown History tablet,extended release 24 hr Allergy/AdvReac Type Severity Reaction Status Date / Time hydromorphone HCl (From Allergy Other Verified 12/28/23 20:21 Dilaudid) vancomycin Allergy Rash Verified 12/28/23 20:21 acetaminophen (From Vicodin) AdvReac Vomiting Verified 12/28/23 20:21 hydrocodone (From Vicodin) AdvReac Vomiting Verified 12/28/23 20:21 oxycodone (From Percocet) AdvReac Vomiting Verified 12/28/23 20:21 Surgical History (Updated 07/30/23 @ 15:[address] Erika Dunn MD) H/O gastric bypass H/O: hysterectomy Hx of cholecystectomy Social History Smoking Status: Never smoker ROS ROS ED Review of Systems ROS Unobtainable: other Constitutional Constitutional ED: Reports lethargy; Denies chills, fever(s), sweats or weight loss Eyes Eyes: Denies blurry vision, change in vision or diplopia ENT ENT ED: Denies rhinorrhea or sore throat Cardiovascular Cardiovascular: Denies chest pain, orthopnea or racing heartbeat Respiratory/Chest Respiratory/Chest: Denies cough, dyspnea, dyspnea on exertion, orthopnea or sputum Gastrointestinal Gastrointestinal: Reports abdominal pain, diarrhea and nausea; Denies vomiting Genitourinary Genitourinary ED: Denies dysuria, hematuria or urinary frequency Musculoskeletal Musculoskeletal: Denies arthralgias, back pain, myalgias or neck pain Integumentary Denies abscess, Abrasions or rash Neurologic Neurologic: Denies headache(s) or weakness Psychiatric Psychiatric: Denies anxiety, depression or suicidal thoughts Endocrine Endocrinology: Denies polydipsia, polyphagia or polyuria Hematologic/Lymphatic Hematologic/Lymphatic: Denies easy bleeding, easy bruising or lymphadenopathy Allergic/Immunologic Allergic/Immunologic ED: Denies mouth swelling, tongue swelling or urticaria EXAM Physical Exam Const Vital Signs: 12/28/23 20:21 12/28/23 22:21 12/28/23 22:35 Temperature 98.1 F 98.6 F 98.6 F Temperature Source Temporal Oral Pulse Rate 100 87 87 Respiratory Rate 18 22 H 22 H Blood Pressure 131/99 H 132/108 H 132/108 H Blood Pressure Mean 109 116 116 Pulse Ox 97 98 98 Oxygen Delivery Method Room Air Room Air Positive well nourished and well developed General Appearance ED: well developed and NAD HEENT Reports TM's clear and moist mucous membranes normocephalic and atraumatic; Negative for trauma or tenderness Tympanic Membrane ED: Yes TM's clear Eyes PERRL and EOMs intact bilaterally General Eye ED: Negative for pale conjunctiva or scleral icterus Neck no lymphadenopathy, supple and no JVD General: Negative for tenderness Chest Wall inspection of chest normal and palpation of chest normal Chest: Negative for tenderness Resp normal respiratory effort and clear to auscultation bilaterally Effort and Inspection: Negative for respiratory distress or pain with movement Auscultation: Negative for rhonchi, wheezes or diminished lung sounds Cardio regular rate, regular rhythm, S1 normal heart sound, S2 normal heart sound and no murmurs Peripheral Pulses: pulses 2+ throughout GI normal to inspection, nondistended, normoactive bowel sounds, soft to palpation, non-distended and no masses GI Narrative: Tenderness palpation the right lower quadrant with some guarding. She has CVA tenderness on the right. Back/Spine no thoracic nor lumbar tenderness Back/Spine Narrative: Right CVA tenderness. Extremity normal to inspection General Extremety ED: Negative for edema General Extremity: Negative for edema Neuro oriented x3, CN's II-XII intact bilaterally, no sensory deficits noted and gait normal Sensorium / Orientation: awake, alert, oriented to person, oriented to place and oriented to time Motor Exam: strength 5/5 throughout and strength abnormal Psych mental status grossly normal Skin no rashes or lesions noted and no wounds MDM MDM MDM Narrative Medical decision making narrative: Patient presents with abdominal pain that was relatively sudden today with nausea. In the differential would be kidney stone versus appendicitis versus UTI or bowel obstruction or other acute process. IV line established. CBC with differential white count 10.7 hemoglobin 13.5 and platelet count of 379. Chemistries unremarkable. Urinalysis was normal. CT scan of the abdomen pelvis showed a dilated colon without evidence of obstruction or evidence of appendicitis. Lactate level pending. Discussed case with general surgeon on- call Dr. Salcedo who asked that we admit to medicine and consult GI as pat ient may need neostigmine in the ICU. Lab Data Attestation: I reviewed the patient's lab results. Labs: Laboratory Results - last 24 hr 12/28/23 12/28/23 21:37 21:40 WBC 10.7 RBC 4.76 Hgb 13.5 Hct 41.8 MCV 87.8 MCH 28.4 MCHC 32.3 RDW Std Deviation 43.1 RDW Coeff of Timothy 13.4 Plt Count 379 MPV 11.6 Immature Gran % (Auto) 0.300 Neut % (Auto) 60.8 Lymph % (Auto) 29.5 [place] % (Auto) 7.2 Eos % (Auto) 1.7 Baso % (Auto) 0.5 Absolute Neuts (auto) 6.5 Absolute Lymphs (auto) 3.15 Nucleated RBC % 0 Platelet Estimate ADEQUATE Plt Morphology Comment LARGE RBC Morphology N CHROM Anisocytosis RARE Sodium 141 Potassium 3.3 L Chloride 111 H Carbon Dioxide 26.0 Anion Gap 4 L BUN 6 L Creatinine 0.77 Estim Creat Clear Calc 122.77 Est GFR (MDRD) Af Amer 110 Est GFR (MDRD) Non-Af 91 BUN/Creatinine Ratio 7.8 L Glucose 85 Lactic Acid 0.9 Calcium 8.5 Urine Color Yellow Urine Clarity Clear Urine pH 6.5 Ur Specific [place] 1.010 Urine Protein Negative Urine Glucose (UA) Normal Urine Ketones Negative Urine Occult Blood Negative Urine Nitrite Negative Urine Bilirubin Negative Urine Urobilinogen 1 H Ur Leukocyte Esterase Negative Urine RBC 0 SEEN Urine WBC 0-5 SEEN Ur Squamous Epith Cells 5-10 SEEN Urine Bacteria 0 SEEN Urine Mucus 0 SEEN Radiography Diagnostic Testing: Clinical Impression(s) from Imaging Studies Abdomen/Pelvis CT 12/28/23 20:41 IMPRESSION: 1. No small bowel distention to suggest bowel obstruction. 2. Marked distention of the colon and the rectum predominantly gas-filled with additional low attenuation stool. Correlate for constipation/obstipation. 3. Status post Masoud-en-Y gastric bypass. Electronically Signed: Earnest Garrett DO at 21:29 EDT , Discharge Plan Triage Chief Complaint: Abd Pain ED Provider: Zuleyma Rivero Dx/Rx/DC Orders Clinical Impression: Abdominal pain, Acute pseudo-obstruction of colon Prescriptions: No Action lorazepam 1 MG tablet 1 mg PO TID Qty: 10 0RF cyclobenzaprine [Flexeril] 10 mg Tablet 10 mg PO TID PRN (Reason: Pain) trazodone 100 mg Tablet 100 mg PO QHS duloxetine [Cymbalta] 60 mg Capsule,Delayed Release(Dr/Ec) 60 mg PO DAILY tramadol 100 mg tablet 100 mg PO TID PRN (Reason: pain) Qty: 14 0RF ondansetron 4 mg tablet,disintegrating 4 mg PO Q8H PRN (Reason: nausea and vomiting) Qty: 10 0RF promethazine 25 mg tablet 25 mg PO TID PRN (Reason: nausea and vomiting) Qty: 14 0RF metoclopramide HCl [Reglan] 10 mg tablet 10 mg PO Q6H PRN (Reason: nausea and vomiting) Qty: 10 0RF Benadryl Allergy 50 mg tablet 50 mg PO TID PRN (Reason: migraine headache) Qty: 10 0RF bupropion HCl 300 mg tablet extended release 24 hr 300 mg PO DAILY Patient Comments: TAKE FOR A TOTAL OF 450 MG bupropion HCl 150 mg tablet extended release 24 hr 150 mg PO DAILY Patient Comments: TAKE FOR A TOTAL OF 450 MG metoprolol succinate 50 mg tablet extended release 24 hr 50 mg PO DAILY lamotrigine 100 mg tablet 100 mg PO DAILY loratadine 10 mg tablet 10 mg PO DAILY cholecalciferol (vitamin D3) 1,250 mcg (50,000 unit) capsule 1,250 mcg PO QWEEK Aimovig Autoinjector 70 mg/mL auto-injector 70 mg subcut QMONTH Primary Care Provider: Pilar Martin Referrals: Pilar Martin MD [Primary Care Provider] - Print Language: Portuguese Disposition Disposition: Acute Care [facility]
[2023-12-28] MEDS: Ondansetron 4 MG/2 ML Vial IV (21:35)
[2023-12-28] MEDS: 0.9% Normal Saline (1000mL) 1,000 ML 125 ML IV (21:35)
[2023-12-28] MEDS: Morphine 4 MG/ML Syringe IV (21:35)
[2023-12-28 21:43] LABS: Bacteria 0 SEEN /hpf (None Seen); Mucous, Urine 0 SEEN /hpf (<or=2+); Red Blood Cells-Urine 0 SEEN /hpf (0-5)
[2023-12-28 21:46] LABS: Absolute Lymphocyte Count 3.15 X10^3/uL (0.83-4.51); Absolute Neutrophil Count 6.5 X10^3/uL (2.0-7.7); Basophil# 0.05 X10^3/uL; Basophil% 0.5 % (0-1); Eosinophil# 0.18 X10^3/uL; Eosinophils% 1.7 % (0-5); Hematocrit 41.8 % (37-47); Hemoglobin 13.5 g/dL (12.0-15.0); Lymphocyte # 3.15 X10^3/ul (0.83-4.51); Lymphocyte % 29.5 % (19-41); Mean Corp Hgb Conc 32.3 g/dL (32-36); Mean Corpuscular Hgb 28.4 pg (27.0-32.0); Mean Corpuscular Volume 87.8 fL (81-99); Mean Platelet Vol. 11.6 fl (6.2-12.0); Monocyte# 0.77 X10^3/uL; Monocyte% 7.2 % (0-10); NRBC Flagged by Analyzer 0 % (0-5); Neutrophil # 6.51 X10^3/uL (2.7-7.7); Neutrophil % 60.8 % (47-70); POSITIVE MORPHOLOGY YES; Platelet Count 379 K/mm3 (150-450); RBC Distribution Width CV 13.4 % (11.6-14.6); RBC Distribution Width SD 43.1 fl (35.1-43.9); Red Blood Count 4.76 M/mm3 (4.2-5.4); White Blood Count 10.7 K/mm3 (4.4-11.0)
[2023-12-28 21:56] LABS: Color, Urine Yellow (Yellow); Glucose, Dipstick Normal (Normal); Ketone-Dipstick Negative (Negative); Leukocyte Esterase-Dipstick Negative /ul (Negative); Nitrite-Dipstick Negative (Negative); Occult Blood-Urine Negative /ul (Negative); Protein-Dipstick Negative (Negative); Urine Bilirubin Dipstick Negative (Negative); Urine Clarity Clear (Clear); Urine Urobilinogen 1 mg/dl (Normal); Urine pH 6.5 (5.0 - 8.0)
[2023-12-28 22:00] LABS: Differential Indicated SCAN CRITERIA MET
[2023-12-28 22:06] LABS: Anion Gap 4 (5-15); BUN 6 mg/dL (7-18); BUN/Creat Ratio 7.8 RATIO (10-20); Calcium,Total 8.5 mg/dL (8.5-10.1); Chloride 111 mmol/L (98-107); Creatinine, Serum 0.77 mg/dL (0.55-1.02); EST Glomerular Filtration Rate 91 mL/min (>60); Est Glom Filt Rate - Afr Amer 110 mL/min (>60); Estimated Creatinine Clearance 122.77 ml/min; Glucose 85 mg/dL (74-106); Potassium 3.3 mmol/L (3.5-5.1); Sodium Level 141 mmol/L (136-145)
[2023-12-28 22:20] LABS: Lactic Acid 0.9 mmol/L (0.4-1.9)
[2023-12-28 22:21] VITALS: BP 132/108; PULSE 87; RESP 22; TEMP 37; O2SAT 98
[2023-12-28 22:32] LABS: Anisocytosis RARE; Platelet Estimate ADEQUATE (ADEQ); Platelet Morphology LARGE; Red Cell Morphology N CHROM NORMAL (NORM C&C)
[2023-12-28 22:35] VITALS: BP 132/108; PULSE 87; RESP 22; TEMP 37; O2SAT 98
[2023-12-28 22:42] LABS: Squamous Epithelial Cells - UA 5-10 SEEN /hpf (5-10); White Blood Cells 0-5 SEEN /hpf (0-5)
--- NOTE | 2023-12-28 22:43 | RAD_ITS ---
INDICATION: NG Insertion COMPARISON: Abdominal CT same day. FINDINGS: Single frontal view of the upper abdomen, lower pelvis excluded from [id number]. Enteric tube tip overlies left mid abdomen, likely small bowel given gastric bypass change. Again noted multiple dilated colonic bowel loops, incompletely imaged. No obvious free air. No definite suspicious calcifications. No mass appreciated. RAD/Abdomen Single View (Portable) IMPRESSION: Enteric tube tip overlies left mid abdomen, likely small bowel given gastric bypass change. Again noted multiple dilated colonic bowel loops, incompletely imaged, likely ileus versus obstruction. Electronically Signed: Feliciano Barnard MD at 0:18 EDT ,
--- NOTE | 2023-12-28 23:13 | PCM.HP.STD ---
[facility] - General General Date of Admission: 12/28/23 Date of Service: 12/28/23 Chief Complaint: Abdominal pain HPI Narrative REINA PALMA, is a 33 F who presents to the emergency room with chief complaint of abdominal pain. Patient has significant past medical history of Masoud-en-Y bypass surgery this past May. Onset of pain began at 3:30 PM this afternoon and became more severe at 4:30 PM. Patient complained of nausea but no vomiting and had 1 episode of severe diarrhea. She also has a history of cholecystectomy and total abdominal hysterectomy but still has her appendix remaining. CT scan was remarkable for a very distended colon but was negative for small bowel obstruction. ER physician consulted surgery who then consulted gastro intestinal specialist Dr. Flores who recommended patient get placed on an NG tube for low intermittent suction to reduce the pressure and hopefully relieve the colon distention. Patient denies any chest pain, shortness of breath or fever or chills at present time. Laboratory studies show a white blood cell count of 10.7, hemoglobin of 13.5, hematocrit of 41.8, platelets of 379, sodium 141, potassium 3.3, chloride 111, bicarb 26, BUN 6, creatinine 0.77, glucose 85, urinalysis was within normal limits. [facility] Medical History (Updated 12/28/23 @ 22:[address] Zuleyma Rivero, DO) Brachial plexus injury Left axillary cellulitis with abscess Home Medications ?Medication ?Instructions ?Recorded ?Last Taken ?Type lorazepam 1 mg tablet 1 mg PO TID #10 tabs 12/31/18 Unknown Rx cyclobenzaprine 10 mg tablet 10 mg PO TID PRN Pain 09/23/21 Unknown History duloxetine 60 mg capsule,delayed 60 mg PO DAILY 09/23/21 Unknown History release (Cymbalta) trazodone 100 mg tablet 100 mg PO QHS 09/23/21 Unknown History ondansetron 4 mg disintegrating 4 mg PO Q8H PRN nausea and 09/24/21 Unknown Rx tablet vomiting #10 tabs tramadol 100 mg tablet 100 mg PO TID PRN pain #14 tabs 09/24/21 Unknown Rx promethazine 25 mg tablet 25 mg PO TID PRN nausea and 10/31/21 Unknown Rx vomiting #14 tabs diphenhydramine HCl 50 mg tablet 50 mg PO TID PRN migraine headache 07/30/23 Unknown Rx (Benadryl Allergy) #10 tabs metoclopramide HCl 10 mg tablet 10 mg PO Q6H PRN nausea and 07/30/23 Unknown Rx (Reglan) vomiting #10 tabs bupropion HCl 150 mg 24 hr tablet, 150 mg PO DAILY 12/28/23 Unknown History extended release bupropion HCl 300 mg 24 hr tablet, 300 mg PO DAILY 12/28/23 Unknown History extended release cholecalciferol (vitamin D3) 1,250 1,250 mcg PO QWEEK 12/28/23 Unknown History mcg (50,000 unit) capsule erenumab-aooe 70 mg/mL 70 mg subcut QMONTH 12/28/23 Unknown History subcutaneous auto-injector (Aimovig Autoinjector) lamotrigine 100 mg tablet 100 mg PO DAILY 12/28/23 Unknown History loratadine 10 mg tablet 10 mg PO DAILY 12/28/23 Unknown History metoprolol succinate 50 mg 50 mg PO DAILY 12/28/23 Unknown History tablet,extended release 24 hr Allergy/AdvReac Type Severity Reaction Status Date / Time hydromorphone HCl (From Allergy Other Verified 12/28/23 20:21 Dilaudid) vancomycin Allergy Rash Verified 12/28/23 20:21 acetaminophen (From Vicodin) AdvReac Vomiting Verified 12/28/23 20:21 hydrocodone (From Vicodin) AdvReac Vomiting Verified 12/28/23 20:21 oxycodone (From Percocet) AdvReac Vomiting Verified 12/28/23 20:21 Surgical History (Updated 07/30/23 @ 15:[address] Erika Dunn MD) H/O gastric bypass H/O: hysterectomy Hx of cholecystectomy Social History Smoking Status: Never smoker ROS Constitutional Constitutional: Denies chills or fever(s) Eyes Eyes: Denies blurry vision ENT HEENT: Denies abnormal hearing Cardiovascular Cardiovascular: Denies chest pain Respiratory/Chest Respiratory/Chest: Denies cough Gastrointestinal Gastrointestinal: Reports abdominal pain, diarrhea and nausea Genitourinary Genitourinary: Denies dysuria Musculoskeletal Musculoskeletal: Denies back pain Integumentary Integumentary: Denies dry skin Neurologic Neurologic: Denies dizziness Psychiatric Psychiatric: Reports anxiety Vital Signs Vital Signs Vital Signs: 12/28/23 20:21 12/28/23 22:21 12/28/23 22:35 Temperature 98.1 F 98.6 F 98.6 F Temperature Source Temporal Oral Pulse Rate 100 87 87 Respiratory Rate 18 22 H 22 H Blood Pressure 131/99 H 132/108 H 132/108 H Blood Pressure Mean 109 116 116 Pulse Ox 97 98 98 Oxygen Delivery Method Room Air Room Air Weight Weight: 216 lb 9.6 oz Body Mass Index (BMI) 33.9 Physical Exam Const oriented x3 General Appearance: cooperative HEENT normocephalic and head/scalp atraumatic Eyes PERRL Neck no lymphadenopathy Lymph Lymphatic: no lymphadenopathy noted Resp normal respiratory effort, normal air movement and clear to auscultation bilaterally Cardio regular rate, regular rhythm, S1 normal heart sound and S2 normal heart sound GI Auscultation: hypoactive bowel sounds Palpation: tender epigastric and RLQ Extremity normal capillary refill Skin General Skin Exam: no breakdown Neuro no focal motor deficits and no sensory deficits noted Psych thought process normal and affect normal Results Lab / Micro Data 12/28/23 21:37 12/28/23 21:37 Labs: Laboratory Results - last 24 hr 12/28/23 21:37: WBC 10.7, RBC 4.76, Hgb 13.5, Hct 41.8, MCV 87.8, MCH 28.4, MCHC 32.3, RDW Std Deviation 43.1, RDW Coeff of [place] 13.4, Plt Count 379, MPV 11.6, Immature Gran % (Auto) 0.300, Neut % (Auto) 60.8, Lymph % (Auto) 29.5, [place] % (Auto) 7.2, Eos % (Auto) 1.7, Baso % (Auto) 0.5, Absolute Neuts (auto) 6.5, Absolute Lymphs (auto) 3.15, Nucleated RBC % 0, Platelet Estimate ADEQUATE, Plt Morphology Comment LARGE, RBC Morphology N CHROM, Anisocytosis RARE, Sodium 141, Potassium 3.3 L, Chloride 111 H, Carbon Dioxide 26.0, Anion Gap 4 L, BUN 6 L, Creatinine 0.77, Estim Creat Clear Calc 122.77, Est GFR (MDRD) Af Amer 110, Est GFR (MDRD) Non-Af 91, BUN/Creatinine Ratio 7.8 L, Glucose 85, Lactic Acid 0.9, Calcium 8.5 12/28/23 21:40: Urine Color Yellow, Urine Clarity Clear, Urine pH 6.5, Ur Specific [place] 1.010, Urine Protein Negative, Urine Glucose (UA) Normal, Urine Ketones Negative, Urine Occult Blood Negative, Urine Nitrite Negative, Urine Bilirubin Negative, Urine Urobilinogen 1 H, Ur Leukocyte Esterase Negative, Urine RBC 0 SEEN, Urine WBC 0-5 SEEN, Ur Squamous Epith Cells 5-10 SEEN, Urine Bacteria 0 SEEN, Urine Mucus 0 SEEN Imaging Radiology Impression Abdomen/Pelvis CT 12/28/23 20:41 IMPRESSION: 1. No small bowel distention to suggest bowel obstruction. 2. Marked distention of the colon and the rectum predominantly gas-filled with additional low attenuation stool. Correlate for constipation/obstipation. 3. Status post Masoud-en-Y gastric bypass. Electronically Signed: Earnest Garrett DO at 21:29 EDT , Assessment & Plan Assessment/Plan (1) Acute pseudo-obstruction of colon: (2) Abdominal pain: (3) Morbid obesity: PLAN: Plan 1 distended colon, pseudoobstruction of colon/abdominal pain?admit patient to general medical floor, initiate nasogastric tube per request of Dr. Flores will place to low intermittent suction. Will add Dilaudid 1 mg IV every 3 hours as needed pain. IV normal saline at 125 cc/h, Zofran 4 mg IV every 8 hours as needed nausea and repeat CBC, CMP, lactate, CRP in a.m., put an official consult to Dr. Flores for GI management 2. History of depression?hold patient's medications while n.p.o. with NG tube in place 3. DVT prophylaxis?low molecular weight heparin Charges/Coding Visit Charges Inpatient E&M: 89139 Init Hosp L2
[2023-12-28] MEDS: Lidocaine Jelly 2% 20 ML Syringe (URO-JET) 1 APPLIC TOPICAL (23:24)
[2023-12-28 23:35] VITALS: BP 152/106; PULSE 86; RESP 12; TEMP 36.8; O2SAT 98
[2023-12-29] VITALS: BP 165/102; PULSE 80; RESP 16; TEMP 36.8; O2SAT 98
--- NOTE | 2023-12-29 00:01 | ED.RN ---
REPORT CALLED TO ICU NURSE MARTINEZ, ALL QUESTIONS ANSWERED AT THIS TIME BY RECEIVING NURSE
--- NOTE | 2023-12-29 07:19 | ED.RN ---
see downtime documentation
[2023-12-29 08:06] LABS: AST(SGOT) 19 U/L (15-37); Alanine Aminotransfer ALT/SGPT 18 U/L (13-56); Albumin, Serum 3.3 g/dL (3.2-5.0); Alkaline Phosphatase 93 U/L (45-117); Anion Gap 6 (5-15); BUN 6 mg/dL (7-18); Calcium,Total 8.9 mg/dL (8.5-10.1); Chloride 112 mmol/L (98-107); Creatinine, Serum 0.66 mg/dL (0.55-1.02); EST Glomerular Filtration Rate 108 mL/min (>60); Est Glom Filt Rate - Afr Amer 130 mL/min (>60); Estimated Creatinine Clearance 143.23 ml/min; Globulin 3.4 g/dL (2.2-4.2); Glucose 109 mg/dL (74-106); Potassium 3.6 mmol/L (3.5-5.1); Protein, Total 6.7 g/dL (6.4-8.2); Sodium Level 142 mmol/L (136-145)
[2023-12-29 08:14] LABS: Lactic Acid 0.4 mmol/L (0.4-1.9)
--- NOTE | 2023-12-29 08:18 | RAD_ITS ---
STUDY: X-RAY - ABDOMEN/PELVIS REASON FOR EXAM: Female, 33 years old. Reassessment of small bowel. TECHNIQUE: Single AP view of the abdomen / pelvis. COMPARISON: December 28, 2023 FINDINGS: Tip of NG tube unchanged projected over the left midabdomen. Stable dilated small bowel in the upper mid abdomen extending into the pelvis with a paucity of gas distally. Findings still highly suspicious for partial small bowel obstruction. The visualized liver, spleen and kidneys are grossly normal in size and morphology. Normal soft tissue structures. Normal visualized osseous structures. RAD/Abdomen Single View (Portable) IMPRESSION: Findings still compatible with high-grade partial small bowel obstruction. Follow-up abdominal imaging to clarify this is recommended. Electronically Signed: Dhruv Goddard MD at 12:18 EDT ,
[2023-12-29] MEDS: Enoxaparin 40 MG/0.4 ML Syringe SC (08:42)
[2023-12-29] MEDS: 0.9% Normal Saline (1000mL) 1,000 ML 125 ML IV ×3 (08:42→23:26)
[2023-12-29] MEDS: Ondansetron 4 MG/2 ML Vial IV (08:50)
[2023-12-29] MEDS: Morphine 4 MG/ML Syringe IV (08:50)
[2023-12-29 09:00] VITALS: BP 137/84; PULSE 68; RESP 13; TEMP 36.6; O2SAT 97
[2023-12-29 09:47] LABS: International Normalized Ratio 1.2
[2023-12-29 09:57] LABS: Absolute Lymphocyte Count 1.66 X10^3/uL (0.83-4.51); Absolute Neutrophil Count 8.1 X10^3/uL (2.0-7.7); Basophil# 0.03 X10^3/uL; Basophil% 0.3 % (0-1); Eosinophil# 0.02 X10^3/uL; Eosinophils% 0.2 % (0-5); Hematocrit 39.6 % (37-47); Hemoglobin 12.2 g/dL (12.0-15.0); Lymphocyte # 1.66 X10^3/ul (0.83-4.51); Lymphocyte % 15.9 % (19-41); Mean Corp Hgb Conc 30.8 g/dL (32-36); Mean Corpuscular Hgb 27.8 pg (27.0-32.0); Mean Corpuscular Volume 90.2 fL (81-99); Mean Platelet Vol. 12.4 fl (6.2-12.0); Monocyte# 0.61 X10^3/uL; Monocyte% 5.8 % (0-10); NRBC Flagged by Analyzer 0 % (0-5); Neutrophil # 8.09 X10^3/uL (2.7-7.7); Neutrophil % 77.3 % (47-70); Platelet Count 295 K/mm3 (150-450); RBC Distribution Width CV 13.5 % (11.6-14.6); RBC Distribution Width SD 44.6 fl (35.1-43.9); Red Blood Count 4.39 M/mm3 (4.2-5.4); White Blood Count 10.5 K/mm3 (4.4-11.0)
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
--- NOTE | 2023-12-29 12:39 | PN.HOSP_ITS ---
Reason for Visit Reason for Visit: Diagnoses Morbid (severe) obesity due to excess calories (12/28/23) [place] syndrome (12/28/23) Unspecified abdominal pain (12/28/23) Subjective Subjective Patient admitted yesterday evening for worsening abdominal pain and concern for possible bowel obstruction. Had NG tube placed in the ED for bowel decompression. Saw patient at the bedside this morning, significant other present. Patient was sitting up in bed and appeared moderately uncomfortable due to ongoing abdominal pain and nausea. She also was reporting moderate discomfort with the NG tube. NG tube had very minimal output while I was in the room. Patient stated the Zofran had not been working much for her. She also takes Phenergan at home, had not tried either this or Compazine yet when I saw her. She stated the abdominal pain was slightly improved this morning but she continued to have significant nausea. Denies any fevers or chills. No other acute concerns. Objective Data Objective Data Vital Signs: Vital Signs Temp Pulse Resp BP Pulse Ox O2 Del Method 97.8 F 68 13 137/84 H 97 Room Air 12/29/23 09:00 12/29/23 09:00 12/29/23 09:00 12/29/23 09:00 12/29/23 09:00 12/29/23 09:00 Oxygen Delivery Method Room Air Weight: 98.248 kg Body Mass Index (BMI) 33.9 Intake & Output: Intake and Output for Last 24 Hours 12/27/23 12/28/23 12/29/23 23:59 23:59 23:59 Intake Total 1000 / 1000 Balance 1000 / 1000 Lab / Micro Data 12/29/23 07:20 12/29/23 07:20 Labs: Laboratory Results - last 24 hr 12/28/23 21:37: WBC 10.7, RBC 4.76, Hgb 13.5, Hct 41.8, MCV 87.8, MCH 28.4, MCHC 32.3, RDW Std Deviation 43.1, RDW Coeff of Timothy 13.4, Plt Count 379, MPV 11.6, Immature Gran % (Auto) 0.300, Neut % (Auto) 60.8, Lymph % (Auto) 29.5, Baxter % (Auto) 7.2, Eos % (Auto) 1.7, Baso % (Auto) 0.5, Absolute Neuts (auto) 6.5, Absolute Lymphs (auto) 3.15, Nucleated RBC % 0, Platelet Estimate ADEQUATE, Plt Morphology Comment LARGE, RBC Morphology N CHROM, Anisocytosis RARE, Sodium 141, Potassium 3.3 L, Chloride 111 H, Carbon Dioxide 26.0, Anion Gap 4 L, BUN 6 L, Creatinine 0.77, Estim Creat Clear Calc 122.77, Est GFR (MDRD) Af Amer 110, Est GFR (MDRD) Non-Af 91, BUN/Creatinine Ratio 7.8 L, Glucose 85, Lactic Acid 0.9, Calcium 8.5 12/28/23 21:40: Urine Color Yellow, Urine Clarity Clear, Urine pH 6.5, Ur Specific [place] 1.010, Urine Protein Negative, Urine Glucose (UA) Normal, Urine Ketones Negative, Urine Occult Blood Negative, Urine Nitrite Negative, Urine Bilirubin Negative, Urine Urobilinogen 1 H, Ur Leukocyte Esterase Negative, Urine RBC 0 SEEN, Urine WBC 0-5 SEEN, Ur Squamous Epith Cells 5-10 SEEN, Urine Bacteria 0 SEEN, Urine Mucus 0 SEEN 12/29/23 07:20: WBC 10.5, RBC 4.39, Hgb 12.2, Hct 39.6, MCV 90.2, MCH 27.8, MCHC 30.8 L, RDW Std Deviation 44.6 H, RDW Coeff of Timothy 13.5, Plt Count 295, MPV 12.4 H, Immature Gran % (Auto) 0.500, Neut % (Auto) 77.3 H, Lymph % (Auto) 15.9 L, Baxter % (Auto) 5.8, Eos % (Auto) 0.2, Baso % (Auto) 0.3, Absolute Neuts (auto) 8.1 H, Absolute Lymphs (auto) 1.66, Nucleated RBC % 0, PT 15.0 H, INR 1.2, Sodium 142, Potassium 3.6, Chloride 112 H, Carbon Dioxide 24.0, Anion Gap 6, BUN 6 L, Creatinine 0.66, Estim Creat Clear Calc 143.23, Est GFR (MDRD) Af Amer 130, Est GFR (MDRD) Non-Af 108, BUN/Creatinine Ratio 9.0 L, Glucose 109 H, Lactic Acid 0.4, Calcium 8.9, Total Bilirubin 0.40, AST 19, ALT 18, Alkaline Phosphatase 93, Total Protein 6.7, Albumin 3.3, Globulin 3.4, Albumin/Globulin Ratio 1.0 Radiography Diagnostic Testing: Radiology Impression Abdomen/Pelvis CT 12/28/23 20:41 IMPRESSION: 1. No small bowel distention to suggest bowel obstruction. 2. Marked distention of the colon and the rectum predominantly gas-filled with additional low attenuation stool. Correlate for constipation/obstipation. 3. Status post Masoud-en-Y gastric bypass. Electronically Signed: Earnest Garrett DO at 21:29 EDT , KUB X-Ray 12/28/23 22:43 IMPRESSION: Enteric tube tip overlies left mid abdomen, likely small bowel given gastric bypass change. Again noted multiple dilated colonic bowel loops, incompletely imaged, likely ileus versus obstruction. Electronically Signed: Feliciano Barnard MD at 0:18 EDT , KUB X-Ray 12/29/23 08:18 IMPRESSION: Findings still compatible with high-grade partial small bowel obstruction. Follow-up abdominal imaging to clarify this is recommended. Electronically Signed: Dhruv Goddard MD at 12:18 EDT , Physical Exam Const alert and oriented x3 Constitutional Narrative: Pleasant younger female, obese, moderately uncomfortable appearing due to ongoing abdominal pain and nausea, otherwise sitting up in bed and conversing normally. General Appearance: cooperative HEENT normocephalic, head/scalp atraumatic, hearing grossly normal bilaterally, nasal mucous membranes and turbinates normal and moist oral mucous membranes Eyes PERRL, EOMs intact bilaterally and conjunctivae normal Neck full ROM Chest inspection of chest normal Resp normal respiratory effort, normal air movement, no use of accessory muscles and clear to auscultation bilaterally Cardio regular rate, regular rhythm, no murmurs and peripheral pulses 2+ throughout GI GI Narrative: Abdomen soft, nondistended and only mildly tender to palpation. Difficult to appreciate good bowel sounds. Back/Spine normal ROM Extremity normal to inspection, full ROM and no pedal edema Skin no rashes or lesions noted Neuro no focal motor deficits and no sensory deficits noted Speech: speech normal Psych mental status grossly normal Mood & Affect: anxious Assessment & Plan Assessment/Plan (1) Abdominal pain: (2) Acute pseudo-obstruction of colon: PLAN: Plan Patient is a 33-year-old female who presented to [facility] ED on 12/28/2023 with worsening abdominal pain and nausea. 1. Abdominal pain and nausea, concern for small bowel obstruction versus pseudoobstruction of colon; history of Masoud-en-Y gastric bypass surgery ? GI following. Had Masoud-en-Y gastric bypass surgery done in May 2023. Per patient, had some postoperative abdominal issues but these largely resolved by early 2023 and patient had been doing well. She developed significant acute onset abdominal pain on afternoon of admission. CT abdomen pelvis without contrast on admit showed no small bowel distention to suggest SBO, marked distention of colon and rectum predominantly gas-filled with additional low- attenuation stool. Had NG tube placed on admit for decompression. KUB post NGT placement and on morning of 12/28 both showed concern for high-grade partial small bowel obstruction. CT abdomen pelvis with oral contrast completed on afternoon of 12/28 for further evaluation, read pending. Discussed with general surgery, suspected to still be colonic distention and not SBO at this time. Will follow-up CT results when available. Appreciate further GI recs. N.p.o. for now and holding all home medications, will restart when able. Chronic medical conditions: ? Obesity: BMI 33 on admit. S/p Masoud-en-Y Bypass surgery as noted above. Encouraged lifestyle modifications. Complicates hospital course, care and prognosis. ? Anxiety/depression/insomnia: On home bupropion, lamotrigine and trazodone at night as needed. Also has Ativan listed on med list but appears she was only prescribed a short course recently, no other fill history noted on [facility] report. Continue home medications when able. ? Allergies: Continue home loratadine when able. ? Hypertension: Continue home metoprolol when able. DVT prophylaxis: Lovenox CODE STATUS: Full code, verified Expected disposition: Home, TBD Total clinical time spent by myself addressing the patient's medical issues, reviewing all the data, and collaborating with patient's care team: 35 minutes. Charges/Coding Visit Charges Inpatient E&M: 06492 Subs Hosp L2
[2023-12-29 14:25] LABS: CRP < 2.90 mg/L (0.0-3.0); LDH 174 U/L (84-246)
[2023-12-29 14:28] VITALS: BP 141/100; PULSE 74; RESP 14; TEMP 36.7; O2SAT 99
[2023-12-29] MEDS: Acetaminophen 325 MG Tablet 650 MG PO (15:44)
[2023-12-29 17:00] VITALS: BP 145/92; PULSE 67; RESP 13; TEMP 36.7; O2SAT 100
--- NOTE | 2023-12-29 17:33 | CT_ITS ---
STUDY: CT ABDOMEN AND PELVIS WITH CONTRAST REASON FOR EXAM: Female, 33 years old. Small bowel obstruction RADIATION DOSAGE (If Supplied By Facility): CTDIvol = ( 16.68 ) mGy, DLP = ( 1317.07 ) mGycm TECHNIQUE: Transaxial images were obtained from the dome of the diaphragm to the symphysis pubis without oral contrast. IV 100mL Isovue-370 was administered. Sagittal and coronal images were reconstructed. Individualized dose optimization techniques were used for this CT. COMPARISON: December 28, 2023. FINDINGS: The visualized lung bases are unremarkable. The visualized portions of the heart are within normal limits. There is hepatomegaly with diffuse hepatic enlargement. The gallbladder is not seen consistent with cholecystectomy. Normal spleen. Normal pancreas. Normal bilateral adrenal glands. Normal right kidney. Normal left kidney. There is postoperative change of the stomach and proximal small intestine consistent with gastric bypass. Feeding tube extends to the proximal small intestine. There are no dilated loops of small intestine. There is mild gaseous distention of the colon. The appendix is visualized and appears normal. Normal abdominal aorta. Normal inferior vena cava. Normal retroperitoneum. Normal urinary bladder. There is absence of the uterus consistent with a prior hysterectomy. There is mild free fluid in the pelvis. Normal abdominal wall. There is degenerative change of the spine. CT/Abdomen/Pelvis W IV Cont ONLY IMPRESSION: Mild gaseous distention of the colon with slight improvement compared to the prior exam. Feeding tube in position. Postoperative change. Hepatomegaly. Electronically Signed: John Isabel MD at 20:03 EDT ,
[2023-12-29] MEDS: 0.9% Saline Lock 10 ML Syringe IV (18:33)
[2023-12-29 21:33] VITALS: BP 131/79; PULSE 67; RESP 18; TEMP 36.6; O2SAT 99
[2023-12-30] VITALS (11 sets, daily range): BP systolic 101–140; BP diastolic 61–88; PULSE 60–96; RESP 15–18; TEMP 36.4–37.6; O2SAT 95–100; BMI 34.0
[2023-12-30] MEDS: 0.9% Normal Saline (1000mL) 1,000 ML 125 ML IV ×3 (00:41→18:52)
--- NOTE | 2023-12-30 07:49 | CON.PCM.GI_ITS ---
HPI Consult Data Date of Consult: 12/30/23 HPI Narrative Reason for Consultation: Colonic pseudoobstruction HPI Narrative: REINA PALMA, is a 33 F who presents with abdominal pain that started around 3:30 PM and gradually built up and became severe around 430. Patient describes nausea but no vomiting. She had 1 episode of diarrhea which is not unusual for her being that she had gastric bypass last May. Patient describes the pain is right lower abdomen and radiates to her back. Patient has had cholecystectomy and hysterectomy but still has her ovaries and still has her appendix. Patient denies fevers or urinary symptoms. No history of kidney stones. She had a CT scan of the abdomen pelvis on admission in the ED: 1. No small bowel distention to suggest bowel obstruction. 2. Marked distention of the colon and the rectum predominantly gas-filled with additional low attenuation stool. Correlate for constipation/obstipation. 3. Status post Masoud-en-Y gastric bypass. The diameter of the cecum was not noted on the CT scan. It was calculated to evaluate centimeters by the emergency room physician. She had an NG tube placed in the emergency room. Her x-ray initially did not show any decompression of her colon. Her follow-up x-ray yesterday that showed possible small bowel obstruction. I requested that she get another CT scan abdomen pelvis: Mild gaseous distention of the colon with slight improvement compared to the prior exam. Feeding tube in position. Postoperative change. Hepatomegaly She takes Zofran on a daily basis. She also takes prochlorperazine on almost daily basis for chronic nausea. She also takes. And she takes lamotrigine and metoprolol. She takes an injection for migraine headaches. [facility] Medical History (Updated 12/28/23 @ 22:[address] Zuleyma Rivero, DO) Brachial plexus injury Left axillary cellulitis with abscess Home Medications ?Medication ?Instructions ?Recorded ?Last Taken ?Type lorazepam 1 mg tablet 1 mg PO TID #10 tabs 12/31/18 Unknown Rx cyclobenzaprine 10 mg tablet 10 mg PO TID PRN Pain 09/23/21 Unknown History duloxetine 60 mg capsule,delayed 60 mg PO DAILY 09/23/21 Unknown History release (Cymbalta) trazodone 100 mg tablet 100 mg PO QHS 09/23/21 Unknown History ondansetron 4 mg disintegrating 4 mg PO Q8H PRN nausea and 09/24/21 Unknown Rx tablet vomiting #10 tabs tramadol 100 mg tablet 100 mg PO TID PRN pain #14 tabs 09/24/21 Unknown Rx promethazine 25 mg tablet 25 mg PO TID PRN nausea and 10/31/21 Unknown Rx vomiting #14 tabs diphenhydramine HCl 50 mg tablet 50 mg PO TID PRN migraine headache 07/30/23 Unknown Rx (Benadryl Allergy) #10 tabs metoclopramide HCl 10 mg tablet 10 mg PO Q6H PRN nausea and 07/30/23 Unknown Rx (Reglan) vomiting #10 tabs bupropion HCl 150 mg 24 hr tablet, 150 mg PO DAILY 12/28/23 Unknown History extended release bupropion HCl 300 mg 24 hr tablet, 300 mg PO DAILY 12/28/23 Unknown History extended release cholecalciferol (vitamin D3) 1,250 1,250 mcg PO QWEEK 12/28/23 Unknown History mcg (50,000 unit) capsule erenumab-aooe 70 mg/mL 70 mg subcut QMONTH 12/28/23 Unknown History subcutaneous auto-injector (Aimovig Autoinjector) lamotrigine 100 mg tablet 100 mg PO DAILY 12/28/23 Unknown History loratadine 10 mg tablet 10 mg PO DAILY 12/28/23 Unknown History metoprolol succinate 50 mg 50 mg PO DAILY 12/28/23 Unknown History tablet,extended release 24 hr Allergy/AdvReac Type Severity Reaction Status Date / Time hydromorphone HCl (From Allergy Other Verified 12/28/23 20:21 Dilaudid) vancomycin Allergy Rash Verified 12/28/23 20:21 acetaminophen (From Vicodin) AdvReac Vomiting Verified 12/28/23 20:21 hydrocodone (From Vicodin) AdvReac Vomiting Verified 12/28/23 20:21 oxycodone (From Percocet) AdvReac Vomiting Verified 12/28/23 20:21 Surgical History (Updated 07/30/23 @ 15:[address] Erika Dunn MD) H/O gastric bypass H/O: hysterectomy Hx of cholecystectomy Social History Smoking Status: Never smoker ROS Constitutional Constitutional: Denies chills or fever(s) Eyes Eyes: Denies blurry vision ENT HEENT: Denies abnormal hearing Cardiovascular Cardiovascular: Denies chest pain Respiratory/Chest Respiratory/Chest: Denies cough Gastrointestinal Gastrointestinal: Reports abdominal pain, diarrhea and nausea Genitourinary Genitourinary: Denies dysuria Musculoskeletal Musculoskeletal: Denies back pain Integumentary Integumentary: Denies dry skin Neurologic Neurologic: Denies dizziness Psychiatric Psychiatric: Reports anxiety Physical Exam Const oriented x3 General Appearance: cooperative HEENT normocephalic and head/scalp atraumatic Eyes PERRL Neck no lymphadenopathy Lymph Lymphatic: no lymphadenopathy noted Resp normal respiratory effort, normal air movement and clear to auscultation bilaterally Cardio regular rate, regular rhythm, S1 normal heart sound and S2 normal heart sound GI Auscultation: hypoactive bowel sounds Palpation: tender epigastric and RLQ Extremity normal capillary refill Skin General Skin Exam: no breakdown Neuro no focal motor deficits and no sensory deficits noted Psych thought process normal and affect normal Lab / Micro Data 12/29/23 07:20 12/29/23 07:20 Labs: Laboratory Results - last 24 hr 12/29/23 07:20: WBC 10.5, RBC 4.39, Hgb 12.2, Hct 39.6, MCV 90.2, MCH 27.8, MCHC 30.8 L, RDW Std Deviation 44.6 H, RDW Coeff of Timothy 13.5, Plt Count 295, MPV 12.4 H, Immature Gran % (Auto) 0.500, Neut % (Auto) 77.3 H, Lymph % (Auto) 15.9 L, Frontier % (Auto) 5.8, Eos % (Auto) 0.2, Baso % (Auto) 0.3, Absolute Neuts (auto) 8.1 H, Absolute Lymphs (auto) 1.66, Nucleated RBC % 0, PT 15.0 H, INR 1.2, Sodium 142, Potassium 3.6, Chloride 112 H, Carbon Dioxide 24.0, Anion Gap 6, BUN 6 L, Creatinine 0.66, Estim Creat Clear Calc 143.23, Est GFR (MDRD) Af Amer 130, Est GFR (MDRD) Non-Af 108, BUN/Creatinine Ratio 9.0 L, Glucose 109 H, Lactic Acid 0.4, Calcium 8.9, Total Bilirubin 0.40, AST 19, ALT 18, Alkaline Phosphatase 93, Lactate Dehydrogenase 174, C-React Prot Ext Range < 2.90, Total Protein 6.7, Albumin 3.3, Globulin 3.4, Albumin/Globulin Ratio 1.0 Imaging Radiology Impression KUB X-Ray 12/29/23 08:18 IMPRESSION: Findings still compatible with high-grade partial small bowel obstruction. Follow-up abdominal imaging to clarify this is recommended. Electronically Signed: Dhruv Goddard MD at 12:18 EDT , Abdomen/Pelvis CT 12/29/23 17:33 IMPRESSION: Mild gaseous distention of the colon with slight improvement compared to the prior exam. Feeding tube in position. Postoperative change. Hepatomegaly. Electronically Signed: John Isabel MD at 20:03 EDT , Assessment & Plan Assessment/Plan (1) Abdominal pain: (2) Acute pseudo-obstruction of colon: PLAN: Plan Patient is a 33-year-old female who presented to [facility] ED on 12/28/2023 with worsening abdominal pain and nausea. Her imaging is consistent with colonic pseudoobstruction. The differential diagnosis is medication induced colonic pseudoobstruction. Most clinicians are aware of the anticholinergic side-effects, such as blurring of vision, dryness of the mouth, constipation and retention of urine.? We discussed the serotonin and anticholinergic effects that can be additive and cause constipation and in her case I suspect that is contributing to her colonic pseudoobstruction. I will give her through NG to and perform colonoscopy today. This is a make sure that there is no sign of ischemia in her colon that may need to be addressed. She was explained alternatives, risk, benefits including not withstanding bleeding, infection, sepsis, perforation, need for charge and . She will have an ASA of 3. Continue NG tube at this time and it could be removed with the procedure. Charges/Coding Visit Charges Inpatient E&M: 99510 Init Hosp L3
[2023-12-30] MEDS: Bisacodyl 5 MG Tablet 20 MG PO (08:11)
[2023-12-30] MEDS: Acetaminophen 325 MG Tablet 650 MG PO (08:11)
[2023-12-30] MEDS: Polyethylene Glycol 3350 BOWEL PREP 1 BOTTLE PO (11:13)
--- NOTE | 2023-12-30 11:26 | PCM.PN.HOSP ---
Reason for Visit Reason for Visit: Diagnoses Morbid (severe) obesity due to excess calories (12/28/23) [place] syndrome (12/28/23) Unspecified abdominal pain (12/28/23) Subjective Subjective Patient had CT abdomen pelvis with oral contrast on late yesterday afternoon. Read on CT came back showing mild gas distention of the colon with slight improvement compared to prior exam, no concern for small bowel obstruction. No acute events overnight. Saw patient at bedside this morning, significant other present. Patient was fatigued and sleeping for majority of our encounter. Significant other noted he had been there all morning and she felt slightly better than yesterday but still felt distended in her lower abdomen and had some nausea. She was tolerating the NG tube but noted she would like out when possible. No other new concerns this morning. Objective Data Objective Data Vital Signs: Vital Signs Temp Pulse Resp BP Pulse Ox O2 Del Method 97.8 F 60 16 136/88 H 98 Room Air 12/30/23 08:26 12/30/23 08:26 12/30/23 08:26 12/30/23 08:26 12/30/23 08:26 12/30/23 08:26 Oxygen Delivery Method Room Air Weight: 98.248 kg Body Mass Index (BMI) 33.9 Intake & Output: Intake and Output for Last 24 Hours 12/28/23 12/29/23 12/30/23 23:59 23:59 23:59 Intake Total 2891.67 / 2891.67 1175.83 / 1175.83 Output Total 50 / 50 Balance 2891.67 / 2891.67 1125.83 / 1125.83 Lab / Micro Data 12/29/23 07:20 12/29/23 07:20 Labs: Laboratory Results - last 24 hr 12/29/23 07:20: Lactate Dehydrogenase 174, C-React Prot Ext Range < 2.90 Radiography Diagnostic Testing: Radiology Impression KUB X-Ray 12/29/23 08:18 IMPRESSION: Findings still compatible with high-grade partial small bowel obstruction. Follow-up abdominal imaging to clarify this is recommended. Electronically Signed: Dhruv Goddard MD at 12:18 EDT , Abdomen/Pelvis CT 12/29/23 17:33 IMPRESSION: Mild gaseous distention of the colon with slight improvement compared to the prior exam. Feeding tube in position. Postoperative change. Hepatomegaly. Electronically Signed: John Isabel MD at 20:03 EDT , Physical Exam Const alert and oriented x3 Constitutional Narrative: Younger female, obese, more fatigued appearing this morning but also more comfortable appearing, laying in bed, conversing normally, in no acute distress. General Appearance: cooperative HEENT normocephalic, head/scalp atraumatic, hearing grossly normal bilaterally, nasal mucous membranes and turbinates normal and moist oral mucous membranes HEENT Narrative: NG tube in place. Eyes PERRL, EOMs intact bilaterally and conjunctivae normal Neck full ROM Chest inspection of chest normal Resp normal respiratory effort, normal air movement, no use of accessory muscles and clear to auscultation bilaterally Cardio regular rate, regular rhythm, no murmurs and peripheral pulses 2+ throughout GI GI Narrative: Abdomen soft, nondistended and only mildly tender to palpation in bilateral lower quadrants. Difficult to appreciate good bowel sounds. Stable. Back/Spine normal ROM Extremity normal to inspection, full ROM and no pedal edema Skin no rashes or lesions noted Neuro no focal motor deficits and no sensory deficits noted Speech: speech normal Psych mental status grossly normal Assessment & Plan Assessment/Plan (1) Abdominal pain: (2) Acute pseudo-obstruction of colon: PLAN: Plan Patient is a 33-year-old female who presented to [facility] ED on 12/28/2023 with worsening abdominal pain and nausea. 1. Abdominal pain and nausea, concern for small bowel obstruction versus pseudoobstruction of colon; history of Masoud-en-Y gastric bypass surgery ? GI following. Had Masoud-en-Y gastric bypass surgery done in May 2023. Per patient, had some postoperative abdominal issues but these largely resolved by early 2023 and patient had been doing well. She developed significant acute onset abdominal pain on afternoon of admission. CT abdomen pelvis without contrast on admit showed no small bowel distention to suggest SBO, marked distention of colon and rectum predominantly gas-filled with additional low-attenuation stool. Had NG tube placed on admit for decompression. KUB post NGT placement and on morning of 12/28 both showed concern for high-grade partial small bowel obstruction. Had CT abdomen pelvis with oral contrast done on afternoon of 12/28 that showed mild gaseous distention of the colon with slight improvement compared to prior exam, no small bowel obstruction. No need for general surgery involvement. Continue NG tube and n.p.o. status for now, further management per GI recommendations. Holding home medications for now, will restart when able. Pain management with IV morphine as needed. Nausea management with Zofran, Compazine, Phenergan all as needed. Chronic medical conditions: ? Obesity: BMI 33 on admit. S/p Masoud-en-Y Bypass surgery as noted above. Encouraged lifestyle modifications. Complicates hospital course, care and prognosis. ? Anxiety/depression/insomnia: On home bupropion, lamotrigine and trazodone at night as needed. Also has Ativan listed on med list but appears she was only prescribed a short course recently, no other fill history noted on [facility] report. Continue home medications when able. ? Allergies: Continue home loratadine when able. ? Hypertension: Continue home metoprolol when able. DVT prophylaxis: Lovenox CODE STATUS: Full code, verified Expected disposition: Home, TBD Total clinical time spent by myself addressing the patient's medical issues, reviewing all the data, and collaborating with patient's care team: 35 minutes. Charges/Coding Visit Charges Inpatient E&M: 19516 Subs Hosp L2
--- NOTE | 2023-12-30 15:54 | PCM.PRE.AN2 ---
ASA Classification* ASA Classification ASA Classification: 2 Assessment & Plan Anesthesia* Anesthesia Assessment Anesthesia Assessment: Discussed sedation and/or anesthesia options, risks, benefits, and alternatives with patient/parents/legal guardian/POA. Questions invited. The patient/parents/legal guardian/POA seems to understand and agrees to proceed with anesthesia plan. Reviewed the physical assessment, medical history, allergy history and patient home medications list prior to surgery/procedure/anesthetic and documented any changes. Performed airway and anesthesia risk assessments. Procedural Plan Procedural Plan:: Proceed w/ Anesthesia plan Anesthesia Type Anesthesia Type: MAC History Source History Obtained from:: Patient and Chart Anesthesia Focused Assessment* Temperature: 97.5 F Pulse Rate: 72 Blood Pressure: 140/81 Respiratory Rate: 18 Pulse Ox: 100 Oxygen Delivery Method: Room Air Airway Assessment Mouth opens: >3 cm Mallampati Score: III Teeth Condition: Chipped/Broken (Right upper molar is chipped) and Missing (Right upper molar is missing. As well as left upper and lower molars) Neck Range of motion (ROM): Limited ROM (Slight decrease in extension) Focused Labs Anesthesia Preop lab: CBC WBC 10.5 K/mm3 (4.4-11.0) 12/29/23 07:20 RBC 4.39 M/mm3 (4.2-5.4) 12/29/23 07:20 Hgb 12.2 g/dL (12.0-15.0) 12/29/23 07:20 Hct 39.6 % (37-47) 12/29/23 07:20 Plt Count 295 K/mm3 (150-450) 12/29/23 07:20 CHEMISTRY Potassium 3.6 mmol/L (3.5-5.1) 12/29/23 07:20 Sodium 142 mmol/L (136-145) 12/29/23 07:20 BUN 6 mg/dL (7-18) L 12/29/23 07:20 Creatinine 0.66 mg/dL (0.55-1.02) 12/29/23 07:20 Glucose 109 mg/dL (74-106) H 12/29/23 07:20 POC Glucose 89 mg/dL (74-106) 05/29/22 19:45 TSH 0.87 uIU/mL (0.358-3.74) 04/04/22 12:45 COAG PT 15.0 SECONDS (11.7-14.9) H 12/29/23 07:20 Urine Test Negative Negative 12/31/18 08:00 Pre-Assessment Diagnosis/Proposed Procedure Planned Operative Procedure(s): Colonoscopy Anesthesia History Anesthesia History - associate program manager: Anesthesia History - associate program manager Hx Hospitalization Any Problems With Anesthesia No 12/30/23 13:51 Cholinesterase deficiency No 12/30/23 13:51 You/Your Family Experience No 12/30/23 13:51 fever (hyperthermia) with Relationship Recent Exposure to Contagious No 12/30/23 13:51 Disease Does patient have nerve No 12/30/23 13:51 stimulator Patient instructed to have device shut off --Does patient have Pacemaker No 12/30/23 13:51 or ICD? When Was Last Pacemaker Check QUESTION #4 FULL TEXT: You/Your Family Experience fever (hyperthermia) with Anesthesia Last Oral Intake Last Oral intake: Last Oral Intake NPO since 00:00 12/30/23 13:51 Meds taken in AM with sips of No 12/30/23 13:51 water? Meds patient instructed to take am of surgery Any additional information?: Yes NPO since: 14:50 Meds patient instructed to take am of surgery: Patient took last prep at 250pm PONV PONV - associate program manager: PONV - associate program manager Female HX of Motion Sickness HX of N/V After Surgery Non-Smoker Duration of Surgery greater than 60 minutes Number of Risk Factors PONV Score Height & Weight Height & Weight: Anesthesia: Height & Weight Height 5 ft 6.93 in 12/30/23 13:51 Weight: 98.2 kg 12/30/23 13:51 Body Mass Index (BMI) 34.0 12/30/23 13:51 Respiratory Assessment Respiratory Assessment - associate program manager: Respiratory Tract Infection Hx - associate program manager Hx Respiratory Tract Infection No 12/30/23 13:51 STOP Sleep Apnea STOP Sleep Apnea - associate program manager: STOP Sleep Apnea - associate program manager Hx Hypertension No 02/13/22 07:30 Hx Sleep Apnea No 12/31/18 07:46 CPAP BIPAP Do you snore loudly (louder than talking or can be heard Do you often feel tired/ fatigued/ sleepy during daytime? Has anyone observed you stop breathing during sleep? STOP Results QUESTION #5 FULL TEXT : Do you snore loudly (louder than talking or can be heard through closed doors)? 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 Specify any problems Hx of Preganancy in last 3 Months Nurse Filling Out Transfusion & Questions: Date: Time: Patient unable to answer at this time (ie. confused, unrespo /Reproduction History /Reproductive History - associate program manager: /Reproductive Hx- associate program manager Hx Now No 12/30/23 13:51 Gestational Age (in weeks): EDC: Hx Hx Para Hx Section SAB No 12/30/23 13:51 Active Medications Active Medications: Current Medications Generic Name Dose Route Start Last Admin Trade Name Freq PRN Reason Stop Dose Admin Acetaminophen 650 mg 12/29/23 14:37 12/30/23 08:11 Acetaminophen 325 Mg Tablet PO 650 mg Q6H PRN PRN Administration HEADACHE/FEVER (T>100F) Enoxaparin Sodium 40 mg 12/29/23 10:00 12/30/23 15:38 Enoxaparin 40 Mg/0.4 Ml Syringe SC Not Given DAILY DAVID Hydralazine HCl 10 mg 12/29/23 15:52 Hydralazine 20 Mg/Ml Vial IV Q4H PRN PRN SBP GREATER THAN 170 Protocol Sodium Chloride 1,000 mls @ 125 mls/hr 12/28/23 20:45 12/30/23 08:36 IV 125 mls/hr .Q8H DAVID Administration Morphine Sulfate 4 mg 12/28/23 23:58 12/29/23 08:50 Morphine 4 Mg/Ml Syringe IV 4 mg Q2H PRN PRN Administration Pain Score 6-10 Ondansetron HCl 4 mg 12/28/23 23:58 12/29/23 08:50 Ondansetron 4 Mg/2 Ml Vial IV 4 mg Q8H PRN PRN Administration NAUSEA/VOMITING Prochlorperazine Edisylate 5 mg 12/28/23 23:58 Prochlorperazine 10 Mg/2 Ml Vial IV Q4H PRN PRN Breakthrough nausea/vomiting Promethazine HCl 25 mg 12/28/23 23:58 Promethazine 25 Mg/Ml Syringe IM Q6H PRN PRN Breakthrough nausea/vomiting Sodium Chloride 10 - 40 ml 12/29/23 11:27 12/29/23 18:33 0.9% Saline Lock 10 Ml Syringe IV 20 ml UD PRN Administration SALINE FLUSH PFSH Medical History (Updated 12/28/23 @ 22:[address] Zuleyma Rivero, DO) Brachial plexus injury Left axillary cellulitis with abscess Home Medications ?Medication ?Instructions ?Recorded ?Last Taken ?Type lorazepam 1 mg tablet 1 mg PO TID #10 tabs 12/31/18 Unknown Rx cyclobenzaprine 10 mg tablet 10 mg PO TID PRN Pain 09/23/21 Unknown History duloxetine 60 mg capsule,delayed 60 mg PO DAILY 09/23/21 Unknown History release (Cymbalta) trazodone 100 mg tablet 100 mg PO QHS 09/23/21 Unknown History ondansetron 4 mg disintegrating 4 mg PO Q8H PRN nausea and 09/24/21 Unknown Rx tablet vomiting #10 tabs tramadol 100 mg tablet 100 mg PO TID PRN pain #14 tabs 09/24/21 Unknown Rx promethazine 25 mg tablet 25 mg PO TID PRN nausea and 10/31/21 Unknown Rx vomiting #14 tabs diphenhydramine HCl 50 mg tablet 50 mg PO TID PRN migraine headache 07/30/23 Unknown Rx (Benadryl Allergy) #10 tabs metoclopramide HCl 10 mg tablet 10 mg PO Q6H PRN nausea and 07/30/23 Unknown Rx (Reglan) vomiting #10 tabs bupropion HCl 150 mg 24 hr tablet, 150 mg PO DAILY 12/28/23 Unknown History extended release bupropion HCl 300 mg 24 hr tablet, 300 mg PO DAILY 12/28/23 Unknown History extended release cholecalciferol (vitamin D3) 1,250 1,250 mcg PO QWEEK 12/28/23 Unknown History mcg (50,000 unit) capsule erenumab-aooe 70 mg/mL 70 mg subcut QMONTH 12/28/23 Unknown History subcutaneous auto-injector (Aimovig Autoinjector) lamotrigine 100 mg tablet 100 mg PO DAILY 12/28/23 Unknown History loratadine 10 mg tablet 10 mg PO DAILY 12/28/23 Unknown History metoprolol succinate 50 mg 50 mg PO DAILY 12/28/23 Unknown History tablet,extended release 24 hr Allergy/AdvReac Type Severity Reaction Status Date / Time hydromorphone HCl (From Allergy Other Verified 12/28/23 20:21 Dilaudid) vancomycin Allergy Rash Verified 12/28/23 20:21 acetaminophen (From Vicodin) AdvReac Vomiting Verified 12/28/23 20:21 hydrocodone (From Vicodin) AdvReac Vomiting Verified 12/28/23 20:21 oxycodone (From Percocet) AdvReac Vomiting Verified 12/28/23 20:21 Surgical History (Updated 07/30/23 @ 15:[address] Erika Dunn MD) H/O gastric bypass H/O: hysterectomy Hx of cholecystectomy Social History Smoking Status: Never smoker Review of Systems (Anesthesia) ROS Narrative System reviewed and no additional complaints, except as documented.
--- NOTE | 2023-12-30 16:50 | OP.CCLET_ITS ---
12/30/2023 Pilar Martin [address] [place] [address] Re : Colonoscopy procedure for Manuel Aldrich Dear Dr. Martin This procedure was performed on Saturday, December 30, 2023. My impressions and recommendations are as follows: Impressions : - One 5 mm polyp in the sigmoid colon at the splenic flexure, removed with a jumbo cold forceps. Resected and retrieved. - Diverticulosis in the recto-sigmoid colon and in the sigmoid colon. 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 Biopsied. - Malignant-appearing tumor in the colon. Recommendations : - Return patient to [facility] for ongoing care. -CEA, CT scan of the chest abdomen pelvis - No recommendation at this time regarding repeat colonoscopy due to age. - Continue present medications. My findings are described in the full procedure note, which is enclosed. If I can be of further assistance, please feel free to contact me at . Sincerely, Ernesto Flores, 12/30/2023 4:49:39 PM This report has been signed electronically.
--- NOTE | 2023-12-30 16:50 | OP.COLON_ITS ---
Patient Name: Manuel Aldrich Procedure Date: 12/30/2023 3:37 PM Date of : 1990 Age: 33 Procedure: Colonoscopy Indications: Iron deficiency anemia Providers: Ernesto Flores DO Medicines: Monitored Anesthesia Care Patient Profile: This is a 33 year old female. Refer to note in patient chart for documentation of history and physical. Last Colonoscopy: date unknown. Unable to locate last colonoscopy report. Complications: No immediate complications. Procedure: Pre-Anesthesia Assessment: - Prior to the procedure, a History and Physical was performed, and patient medications and allergies were reviewed. The patient is competent. The risks and benefits of the procedure and the sedation options and risks were discussed with the patient. All questions were answered and informed consent was obtained. Patient identification and proposed procedure were verified by the physician in the pre-procedure area. Mental Status Examination: alert and oriented. Airway Examination: normal oropharyngeal airway and neck mobility. Respiratory Examination: clear to auscultation. CV Examination: normal. Prophylactic Antibiotics: The patient does not require prophylactic antibiotics. Prior Anticoagulants: The patient has taken no anticoagulant or antiplatelet agents. After reviewing the risks and benefits, the patient was deemed in satisfactory condition to undergo the procedure. The anesthesia plan was to use monitored anesthesia care (MAC). Immediately prior to administration of medications, the patient was re-assessed for adequacy to receive sedatives. The heart rate, respiratory rate, oxygen saturations, blood pressure, adequacy of pulmonary ventilation, and response to care were monitored throughout the procedure. The physical status of the patient was re-assessed after the procedure. After I obtained informed consent, the scope was passed under direct vision. Throughout the procedure, the patient's blood pressure, pulse, and oxygen saturations were monitored continuously. The Colonoscope was introduced through the anus and advanced to the terminal ileum. The colonoscopy was performed without difficulty. The patient tolerated the procedure well. The quality of the bowel preparation was adequate. The terminal ileum, ileocecal valve, appendiceal orifice, and rectum were photographed. Scope In: Scope Out: Findings: The perianal and digital rectal examinations were normal. A 5 mm polyp was found in the sigmoid colon splenic flexure. The polyp was sessile. The polyp was removed with a jumbo cold forceps. Resection and retrieval were complete. Verification of patient identification for the specimen was done. Estimated blood loss was minimal. Multiple small-mouthed diverticula were found in the recto-sigmoid colon and sigmoid colon. A polypoid non-obstructing large mass was found at the ileocecal valve. The mass was non-circumferential. The mass measured two cm in length. In addition, its diameter measured twenty-three mm. Oozing was present. This was biopsied with a cold forceps for histology. Verification of patient identification for the specimen was done. Estimated blood loss was minimal. Impression: - One 5 mm polyp in the sigmoid colon at the splenic flexure, removed with a jumbo cold forceps. Resected and retrieved. - Diverticulosis in the recto-sigmoid colon and in the sigmoid colon. 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 Biopsied. - Malignant-appearing tumor in the colon. Recommendation: - Return patient to hospital [facility] for ongoing care. -CEA, CT scan of the chest abdomen pelvis - No recommendation at this time regarding repeat colonoscopy due to age. - Continue present medications. Procedure Code(s): --- Professional --- 37489, Colonoscopy, flexible; with biopsy, single or multiple CPT copyright 2021 [employer]. All rights reserved. The codes documented in this report are preliminary and upon hardboard grinder review may be revised to meet current compliance requirements. Ernesto Flores DO 12/30/2023 4:49:39 PM This report has been signed electronically. Number of Addenda: 0 Note Initiated On: 12/30/2023 3:37 PM
--- NOTE | 2023-12-30 17:20 | PCM.POST.ANE ---
Anesthesia: Postop Eval I Current Vital Signs Temperature: 97.7 F Pulse Rate: 83 Blood Pressure: 101/66 Respiratory Rate: 16 Pulse Ox: 100 Oxygen Delivery Method: Room Air Assessment Airway patent: Yes Spontaneous unlabored respirations: Yes Mental status: Awake and Calm nausea: No Vomiting: No Anesthesia Complication: No Fluid Hydration Crystalloid volume administer (ml): 400 Total IV fluid infused: 400 Progress Note Anesthesia document: Postop Eval 1 completed: Yes
--- NOTE | 2023-12-30 17:30 | PCM.POSTANE2 ---
Anesthesia Postop Eval I Sum Postop Eval Completion status Anesthesia document: Postop Eval 1 completed: Yes Anesthesia Postop Eval I Summary Anesthesia Postop Eval I Summary: Anesthesia Postop Eval I: Assessment Summary Airway patent Yes 12/30/23 17:23 Spontaneous unlabored Yes 12/30/23 17:23 respirations Mental status Awake,Calm 12/30/23 17:23 nausea No 12/30/23 17:23 Vomiting No 12/30/23 17:23 Anesthesia Postop Eval I: Fluid Summary Crystalloid volume administer 400 12/30/23 17:23 (ml) Colloids volume administered ( ml) Blood Product volume administered (ml) Total IV fluid infused 400 12/30/23 17:23 Anesthesia Postop Eval I: Summary Notes Anesthesia Complication No 12/30/23 17:23 Anesthesia Complication Comment: Post-operative progress note Anesthesia: Postop Eval II Evaluation Mental status: Awake and Calm Pain Level: 0 nausea: No Vomiting: No Complications Anesthesia Complication: No
--- NOTE | 2023-12-30 17:34 | EX.PCM.PN.GI ---
Subjective Subjective Patient underwent colonoscopy. The report that in the chart is the wrong report. She had a sigmoid volvulus that was decompressed effectively with decompressive colonoscopy. Objective Data Objective Data Vital Signs: Vital Signs Temp Pulse Resp BP Pulse Ox O2 Del Method 99.7 F H 67 18 116/82 H 100 Room Air 12/30/23 17:32 12/30/23 17:32 12/30/23 17:32 12/30/23 17:32 12/30/23 17:32 12/30/23 17:32 Oxygen Delivery Method Room Air Weight: 216 lb 7.903 oz Body Mass Index (BMI) 34.0 Intake & Output: Intake and Output for Last 24 Hours 12/28/23 12/29/23 12/30/23 23:59 23:59 23:59 Intake Total 2891.67 / 2891.67 1175.83 / 1175.83 Output Total 50 / 50 Balance 2891.67 / 2891.67 1125.83 / 1125.83 Lab / Micro Data 12/29/23 07:20 12/29/23 07:20 Radiography Diagnostic Testing: Radiology Impression Abdomen/Pelvis CT 12/29/23 17:33 IMPRESSION: Mild gaseous distention of the colon with slight improvement compared to the prior exam. Feeding tube in position. Postoperative change. Hepatomegaly. Electronically Signed: John Isabel MD at 20:03 EDT , Physical Exam Const alert and oriented x3 Constitutional Narrative: Younger female, obese, more fatigued appearing this morning but also more comfortable appearing, laying in bed, conversing normally, in no acute distress. General Appearance: cooperative HEENT normocephalic, head/scalp atraumatic, hearing grossly normal bilaterally, nasal mucous membranes and turbinates normal and moist oral mucous membranes HEENT Narrative: NG tube in place. Eyes PERRL, EOMs intact bilaterally and conjunctivae normal Neck full ROM Chest inspection of chest normal Resp normal respiratory effort, normal air movement, no use of accessory muscles and clear to auscultation bilaterally Cardio regular rate, regular rhythm, no murmurs and peripheral pulses 2+ throughout GI GI Narrative: Abdomen soft, nondistended and only mildly tender to palpation in bilateral lower quadrants. Difficult to appreciate good bowel sounds. Stable. Back/Spine normal ROM Extremity normal to inspection, full ROM and no pedal edema Skin no rashes or lesions noted Neuro no focal motor deficits and no sensory deficits noted Speech: speech normal Psych mental status grossly normal Assessment & Plan Assessment/Plan (1) Acute pseudo-obstruction of colon: (2) Abdominal pain: PLAN: Plan . NG tube was removed. Successful decompressive colonoscopy. Patient can have a regular diet Charges/Coding Visit Charges Inpatient E&M: 74449 Subs Hosp L2
[2023-12-31 08:02] LABS: Anion Gap 6 (5-15); BUN 5 mg/dL (7-18); BUN/Creat Ratio 9.4 RATIO (10-20); Calcium,Total 8.1 mg/dL (8.5-10.1); Chloride 111 mmol/L (98-107); Creatinine, Serum 0.53 mg/dL (0.55-1.02); EST Glomerular Filtration Rate 139 mL/min (>60); Est Glom Filt Rate - Afr Amer 169 mL/min (>60); Estimated Creatinine Clearance 175.09 ml/min; Glucose 86 mg/dL (74-106); Potassium 3.4 mmol/L (3.5-5.1); Sodium Level 143 mmol/L (136-145)
[2023-12-31 08:44] VITALS: BP 112/70; PULSE 74; RESP 16; TEMP 36.4; O2SAT 96
[2023-12-31] MEDS: Enoxaparin 40 MG/0.4 ML Syringe SC (08:54)
--- NOTE | 2023-12-31 10:14 | PCM.PN.HOSP ---
Reason for Visit Reason for Visit: Diagnoses Morbid (severe) obesity due to excess calories (12/28/23) [place] syndrome (12/28/23) Unspecified abdominal pain (12/28/23) Objective Data Objective Data Vital Signs: Vital Signs Temp Pulse Resp BP Pulse Ox O2 Del Method 97.5 F L 74 16 112/70 96 Room Air 12/31/23 08:44 12/31/23 08:44 12/31/23 08:44 12/31/23 08:44 12/31/23 08:44 12/31/23 08:44 Oxygen Delivery Method Room Air Weight: 216 lb 7.903 oz Body Mass Index (BMI) 34.0 Intake & Output: Intake and Output for Last 24 Hours 12/29/23 12/30/23 12/31/23 23:59 23:59 23:59 Intake Total 2891.67 / 2891.67 2195.83 / 2195.83 Output Total 50 / 50 Balance 2891.67 / 2891.67 2145.83 / 2145.83 Lab / Micro Data 12/29/23 07:20 12/31/23 07:07 Labs: Laboratory Results - last 24 hr 12/31/23 07:07: Sodium 143, Potassium 3.4 L, Chloride 111 H, Carbon Dioxide 26.0, Anion Gap 6, BUN 5 L, Creatinine 0.53 L, Estim Creat Clear Calc 175.09, Est GFR (MDRD) Af Amer 169, Est GFR (MDRD) Non-Af 139, BUN/Creatinine Ratio 9.4 L, Glucose 86, Calcium 8.1 L Physical Exam Narrative Seen and examined. Patient is still complaining of right lower quadrant abdominal pain. She had a small bowel movement yesterday and in the morning. Started on regular diet. No fever. Physical exam General: Alert, Oriented x3, Cooperative HEENT: Atraumatic, PERRLA, EOMI, Normocephalic Oral: No Gingival or Mucosal Lesions/ Ulcerations Neck: Supple, No JVD, Negative Carotid Bruits Chest wall/Lungs: Air entry diminished in bilateral lung bases. No crepitation/rhonchi Cardiovascular: Regular rate, Regular Rhythm, Normal S1, Normal S2, No M/G/R Abdomen: Bowel sounds very sluggish. Tenderness present over right lower quadrant. Soft, Non-Distended. Had Masoud-en-Y gastric bypass surgery. : No dysuria. No renal angle tenderness. No suprapubic tenderness. Extremities: No edema, Capillary Refill Less than 3 Seconds Skin: No rashes, No breakdown Musculoskeletal: No Tenderness to Palpation of Joints or Extremities Neurological: Cranial nerves II-XII grossly intact, DTR 2+/4. No acute focal neurological deficit. Psych/Mental Status: Normal Affect, Appropriate. Assessment & Plan Assessment/Plan (1) Abdominal pain: (2) Acute pseudo-obstruction of colon: PLAN: Plan Patient is a 33-year-old female who presented to [facility] ED on 12/28/2023 with worsening abdominal pain and nausea. 1. Abdominal pain and nausea, concern for small bowel obstruction versus pseudoobstruction of colon; history of Masoud-en-Y gastric bypass surgery ? GI following. Had Masoud-en-Y gastric bypass surgery done in May 2023. Per patient, had some postoperative abdominal issues but these largely resolved by early 2023 and patient had been doing well. CT abdomen pelvis without contrast on admit showed no small bowel distention to suggest SBO, marked distention of colon and rectum predominantly gas-filled with additional low-attenuation stool. Had NG tube placed on admit for decompression. KUB post NGT placement and on morning of 12/28 both showed concern for high-grade partial small bowel obstruction. Had CT abdomen pelvis with oral contrast done on afternoon of 12/28 that showed mild gaseous distention of the colon with slight improvement compared to prior exam, no small bowel obstruction. Patient had colonoscopy Colonoscopy 12/30/2023 Impressions : - One 5 mm polyp in the sigmoid colon at the splenic flexure, removed with a jumbo cold forceps. Resected and retrieved. - Diverticulosis in the recto-sigmoid colon and in the sigmoid colon. 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 Biopsied. - Malignant-appearing tumor in the colon. CEA ordered. Recommended CT scan of the chest abdomen pelvis but abdomen pelvis already done. Recommendations : - Return patient to hospital [facility] for ongoing care. -CEA, CT scan of the chest abdomen pelvis - - Continue present medications. Chronic medical conditions: ? Obesity: BMI 33 on admit. S/p Masoud-en-Y Bypass surgery as noted above. Encouraged lifestyle modifications. Complicates hospital course, care and prognosis. ? Anxiety/depression/insomnia: On home bupropion, lamotrigine and trazodone at night as needed. Also has Ativan listed on med list but appears she was only prescribed a short course recently, no other fill history noted on [facility] report. Continue home medications when able. ? Allergies: Continue home loratadine when able. ? Hypertension: Continue home metoprolol when able. DVT prophylaxis: Lovenox CODE STATUS: Full code, verified Charges/Coding Visit Charges Inpatient E&M: 00636 Subs Hosp L2
[2023-12-31 15:53] VITALS: BP 128/90; PULSE 76; RESP 16; TEMP 37.3; O2SAT 97
--- NOTE | 2023-12-31 17:15 | CT_ITS ---
STUDY: CT CHEST WITHOUT CONTRAST REASON FOR EXAM: Female, 33 years old. Suspected malignant tumor in colon RADIATION DOSAGE (If Supplied By Facility): CTDIvol = ( 13.66 ) mGy, DLP = ( 447.16 ) mGycm TECHNIQUE: Transaxial imaging was performed without the administration of intravenous contrast material. Multiplanar coronal and sagittal images were reformatted. Individualized dose optimization techniques were used for this CT. COMPARISON: Chest x-ray July 30, 2023 FINDINGS: CHEST The lungs are normal. There is no demonstrated pleural abnormality. Normal heart and pericardium. There are no calcifications of the coronary arteries. Normal mediastinum. Normal hilar regions. Normal unenhanced pulmonary arteries. Normal aorta arch and descending thoracic aorta. There are multi-level degenerative changes of the thoracic spine. There are small Schmorl''s nodes at multiple levels. There is postoperative change of the stomach and proximal small intestine CT/Chest without Contrast IMPRESSION: No dominant mass or nodule. No adenopathy. Electronically Signed: John Isabel MD at 18:45 EDT ,
--- NOTE | 2023-12-31 18:21 | EX.PCM.PN.GI ---
Subjective Subjective Patient underwent colonoscopy yesterday for colonic decompression. There were no abnormalities seen except for a stricture in the sigmoid colon. There were no signs of megacolon, ischemia in the colon. It was basically unprepped colonoscopy due to patient not able to tolerate the prep. NG tube was removed during the procedure. Patient's colonoscopy report is being fixed as the wrong patient's report was transferred to her documentation. Objective Data Objective Data Vital Signs: Vital Signs Temp Pulse Resp BP Pulse Ox O2 Del Method 99.1 F 76 16 128/90 H 97 Room Air 12/31/23 15:53 12/31/23 15:53 12/31/23 15:53 12/31/23 15:53 12/31/23 15:53 12/31/23 15:53 Oxygen Delivery Method Room Air Weight: 216 lb 7.903 oz Body Mass Index (BMI) 34.0 Intake & Output: Intake and Output for Last 24 Hours 12/29/23 12/30/23 12/31/23 23:59 23:59 23:59 Intake Total 2891.67 / 2891.67 2195.83 / 2195.83 1020 / 1020 Output Total 50 / 50 Balance 2891.67 / 2891.67 2145.83 / 2145.83 1020 / 1020 Lab / Micro Data 12/29/23 07:20 12/31/23 07:07 Labs: Laboratory Results - last 24 hr 12/31/23 07:07: Sodium 143, Potassium 3.4 L, Chloride 111 H, Carbon Dioxide 26.0, Anion Gap 6, BUN 5 L, Creatinine 0.53 L, Estim Creat Clear Calc 175.09, Est GFR (MDRD) Af Amer 169, Est GFR (MDRD) Non-Af 139, BUN/Creatinine Ratio 9.4 L, Glucose 86, Calcium 8.1 L Physical Exam Narrative Seen and examined. Patient is still complaining of right lower quadrant abdominal pain. She had a small bowel movement yesterday and in the morning. Started on regular diet. No fever. Physical exam General: Alert, Oriented x3, Cooperative HEENT: Atraumatic, PERRLA, EOMI, Normocephalic Oral: No Gingival or Mucosal Lesions/ Ulcerations Neck: Supple, No JVD, Negative Carotid Bruits Chest wall/Lungs: Air entry diminished in bilateral lung bases. No crepitation/rhonchi Cardiovascular: Regular rate, Regular Rhythm, Normal S1, Normal S2, No M/G/R Abdomen: Bowel sounds very sluggish. Tenderness present over right lower quadrant. Soft, Non-Distended. Had Masoud-en-Y gastric bypass surgery. : No dysuria. No renal angle tenderness. No suprapubic tenderness. Extremities: No edema, Capillary Refill Less than 3 Seconds Skin: No rashes, No breakdown Musculoskeletal: No Tenderness to Palpation of Joints or Extremities Neurological: Cranial nerves II-XII grossly intact, DTR 2+/4. No acute focal neurological deficit. Psych/Mental Status: Normal Affect, Appropriate. Assessment & Plan Assessment/Plan (1) Acute pseudo-obstruction of colon: (2) Abdominal pain: PLAN: Plan . Likely medication induced severe constipation with colonic pseudoobstruction status post colonoscopy with decompression. Recommendations are to hold anticholinergics. Charges/Coding Visit Charges Inpatient E&M: 84730 [facility] Hosp L3
[2023-12-31 22:00] VITALS: BP 111/71; PULSE 71; RESP 15; TEMP 37.2; O2SAT 98
[2024-01-01 04:00] VITALS: RESP 15; O2SAT 99
[2024-01-01 04:30] VITALS: BP 119/63; PULSE 62; RESP 15; TEMP 36.7; O2SAT 99
[2024-01-01 06:32] LABS: Absolute Lymphocyte Count 2.71 X10^3/uL (0.83-4.51); Absolute Neutrophil Count 3.5 X10^3/uL (2.0-7.7); Basophil# 0.03 X10^3/uL; Basophil% 0.4 % (0-1); Eosinophil# 0.13 X10^3/uL; Eosinophils% 1.9 % (0-5); Hematocrit 35.1 % (37-47); Hemoglobin 11.5 g/dL (12.0-15.0); Lymphocyte # 2.71 X10^3/ul (0.83-4.51); Lymphocyte % 38.8 % (19-41); Mean Corp Hgb Conc 32.8 g/dL (32-36); Mean Corpuscular Volume 85.6 fL (81-99); Mean Platelet Vol. 12.1 fl (6.2-12.0); Monocyte# 0.58 X10^3/uL; Monocyte% 8.3 % (0-10); NRBC Flagged by Analyzer 0 % (0-5); Neutrophil # 3.52 X10^3/uL (2.7-7.7); Neutrophil % 50.3 % (47-70); Platelet Count 250 K/mm3 (150-450); RBC Distribution Width CV 13.4 % (11.6-14.6); RBC Distribution Width SD 41.4 fl (35.1-43.9)
[2024-01-01 07:06] LABS: Anion Gap 7 (5-15); BUN 5 mg/dL (7-18); BUN/Creat Ratio 9.5 RATIO (10-20); Calcium,Total 8.3 mg/dL (8.5-10.1); Chloride 110 mmol/L (98-107); Creatinine, Serum 0.52 mg/dL (0.55-1.02); EST Glomerular Filtration Rate 141 mL/min (>60); Est Glom Filt Rate - Afr Amer 171 mL/min (>60); Estimated Creatinine Clearance 178.45 ml/min; Glucose 83 mg/dL (74-106); Potassium 2.9 mmol/L (3.5-5.1); Sodium Level 142 mmol/L (136-145)
[2024-01-01 09:15] VITALS: BP 134/87; PULSE 68; RESP 16; TEMP 36.6; O2SAT 98
[2024-01-01] MEDS: Acetaminophen 325 MG Tablet 650 MG PO (09:16)
[2024-01-01] MEDS: Enoxaparin 40 MG/0.4 ML Syringe SC (09:16)
[2024-01-01 10:13] LABS: Magnesium 1.6 mg/dL (1.6-2.6); Phosphorus 3.4 mg/dL (2.5-4.9)
[2024-01-01] MEDS: Potassium Chloride Oral Tablet 20 MEQ 40 MEQ PO ×3 (10:18→15:15)
--- NOTE | 2024-01-01 10:43 | DCINST_ITS ---
Discharge Instructions Diet Discharge Diet: Low fat / Low cholesterol and 2000 mg Sodium Diet Activity Discharge Activity: Return to Normal Activity Weight Bearing Status: Weight bearing as tolerated Dressing / Incision Call your doctor if you observe: Fever of 101 or Higher, Coldness, Increased Pain, Numbness or Tingling, Change in Color, Inability to urinate, Inability to have a bowel movement, Shortness of breath, Dizziness, Fainting spells, Swelling in the ankles, Chest pain, Prolonged hiccupping, Increased palpitations (irregular heartbeat) and Calf discomfort Follow Up Care When: IN 2 WEEKS Test Results: Test results from this visit will be discussed in further detail at your follow- up appointment, if applicable. Discharge Plan Admission Admit Date/Time: 12/28/23 23:22 Primary Reason for Your Visit: Abdominal pain nausea possibly due to sigmoid volvulus decompressed with co Attending Provider: Jeff Peterson Primary Care Provider: Pilar Martin Consulting Providers: Jim Gasca; Saravanan Glynn Discharge Orders/Prescriptions Prescriptions: New magnesium chloride [Mag 64] 64 mg Tablet,Delayed Release (Dr/Ec) 128 mg PO BID 2 Days Qty: 8 0RF Continued lorazepam 1 MG tablet 1 mg PO TID Qty: 10 0RF cyclobenzaprine 10 mg Tablet 10 mg PO TID PRN (Reason: Pain) trazodone 100 mg Tablet 100 mg PO QHS duloxetine [Cymbalta] 60 mg Capsule,Delayed Release(Dr/Ec) 60 mg PO DAILY tramadol 100 mg tablet 100 mg PO TID PRN (Reason: pain) Qty: 14 0RF ondansetron 4 mg tablet,disintegrating 4 mg PO Q8H PRN (Reason: nausea and vomiting) Qty: 10 0RF promethazine 25 mg tablet 25 mg PO TID PRN (Reason: nausea and vomiting) Qty: 14 0RF metoclopramide HCl [Reglan] 10 mg tablet 10 mg PO Q6H PRN (Reason: nausea and vomiting) Qty: 10 0RF Benadryl Allergy 50 mg tablet 50 mg PO TID PRN (Reason: migraine headache) Qty: 10 0RF bupropion HCl 300 mg tablet extended release 24 hr 300 mg PO DAILY Patient Comments: TAKE FOR A TOTAL OF 450 MG bupropion HCl 150 mg tablet extended release 24 hr 150 mg PO DAILY Patient Comments: TAKE FOR A TOTAL OF 450 MG metoprolol succinate 50 mg tablet extended release 24 hr 50 mg PO DAILY lamotrigine 100 mg tablet 100 mg PO DAILY loratadine 10 mg tablet 10 mg PO DAILY cholecalciferol (vitamin D3) 1,250 mcg (50,000 unit) capsule 1,250 mcg PO QWEEK Aimovig Autoinjector 70 mg/mL auto-injector 70 mg subcut QMONTH Referrals / Follow Up: Pilar Martin MD [Primary Care Provider] - FriendErnesto DO [Med Staff - Active Staff] - Within 1 Month Disposition Disposition (needs filled in before D/C Order can be placed): Home, Self Care
--- NOTE | 2024-01-01 11:06 | PCM.DC.SUM ---
Providers Date of Admission: 12/28/23 Date of Discharge: 01/01/24 Primary Care Physician: Dr. 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 ED on 12/28/2023 with worsening abdominal pain and nausea. 1. Abdominal pain and nausea, concern for small bowel obstruction versus pseudoobstruction of colon; history of Masoud-en-Y gastric bypass surgery ? GI following. Had Masoud-en-Y gastric bypass surgery done in May 2023. Per patient, had some postoperative abdominal issues but these largely resolved by early 2023 and patient had been doing well. CT abdomen pelvis without contrast on admit showed no small bowel distention to suggest SBO, marked distention of colon and rectum predominantly gas-filled with additional low-attenuation stool. Had NG tube placed on admit for decompression. KUB post NGT placement and on morning of 12/28 both showed concern for high-grade partial small bowel obstruction. Had CT abdomen pelvis with oral contrast done on afternoon of 12/28 that showed mild gaseous distention of the colon with slight improvement compared to prior exam, no small bowel obstruction. Patient had colonoscopy Colonoscopy 12/30/2023 The earlier colonoscopy report as mentioned in the last progress note was wrong report from other patients transferred to this patient as documentation as written in the GI progress note of 12/30/2023 and 12/31/2023. 12/31: Advised to follow-up in GI clinic within a month. Chronic medical conditions: ? Obesity: BMI 33 on admit. S/p Masoud-en-Y Bypass surgery as noted above. Encouraged lifestyle modifications. Complicates hospital course, care and prognosis. ? Anxiety/depression/insomnia: On home bupropion, lamotrigine and trazodone at night as needed. Also has Ativan listed on med list but appears she was only prescribed a short course recently, no other fill history noted on [facility] report. Continue home medications when able. ? Allergies: Continue home loratadine when able. ? Hypertension: Continue home metoprolol when able. DVT prophylaxis: Lovenox CODE STATUS: Full code, verified Medications at Discharge Home Medications cyclobenzaprine 10 mg tablet 10 mg PO TID PRN Pain 09/23/21 duloxetine 60 mg capsule,delayed release (Cymbalta) 60 mg PO DAILY 09/23/21 trazodone 100 mg tablet 100 mg PO QHS 09/23/21 ondansetron 4 mg disintegrating tablet 4 mg PO Q8H PRN nausea and vomiting #10 tabs 09/24/21 tramadol 100 mg tablet 100 mg PO TID PRN pain #14 tabs 09/24/21 promethazine 25 mg tablet 25 mg PO TID PRN nausea and vomiting #14 tabs 10/31/21 diphenhydramine HCl 50 mg tablet (Benadryl Allergy) 50 mg PO TID PRN migraine headache #10 tabs 07/30/23 metoclopramide HCl 10 mg tablet (Reglan) 10 mg PO Q6H PRN nausea and vomiting #10 tabs 07/30/23 bupropion HCl 150 mg 24 hr tablet, extended release 150 mg PO DAILY 12/28/23 bupropion HCl 300 mg 24 hr tablet, extended release 300 mg PO DAILY 12/28/23 cholecalciferol (vitamin D3) 1,250 mcg (50,000 unit) capsule 1,250 mcg PO QWEEK 12/28/23 erenumab-aooe 70 mg/mL subcutaneous auto-injector (Aimovig Autoinjector) 70 mg subcut QMONTH 12/28/23 lamotrigine 100 mg tablet 100 mg PO DAILY 12/28/23 loratadine 10 mg tablet 10 mg PO DAILY 12/28/23 metoprolol succinate 50 mg tablet,extended release 24 hr 50 mg PO DAILY 12/28/23 magnesium chloride 64 mg (magnesium chloride) tablet,delayed release (Mag 64) 128 mg (2 x 64 mg) PO BID 2 days #8 tabs 01/01/24 Physical Exam Narrative Seen and examined. Patient complaining of right lumbar pain in addition to the right umbilical region. She said she had this pain when she came in but yesterday was more localized to right lower quadrant. Patient does not have any history of kidney or urinary tract stone and was not found or reported in the CT abdomen which she had twice. She had a small bowel movement yesterday and in the morning. Started on regular diet. No fever. Physical exam General: Alert, Oriented x3, Cooperative HEENT: Atraumatic, PERRLA, EOMI, Normocephalic Oral: No Gingival or Mucosal Lesions/ Ulcerations Neck: Supple, No JVD, Negative Carotid Bruits Chest wall/Lungs: Air entry diminished in bilateral lung bases. No crepitation/rhonchi Cardiovascular: Regular rate, Regular Rhythm, Normal S1, Normal S2, No M/G/R Abdomen: Bowel sounds slow. Tenderness present over right lower quadrant. Soft, Non-Distended. Had Masoud-en-Y gastric bypass surgery. : No dysuria. No renal angle tenderness. No suprapubic tenderness. Extremities: No edema, Capillary Refill Less than 3 Seconds Skin: No rashes, No breakdown Musculoskeletal: No Tenderness to Palpation of Joints or Extremities Neurological: Cranial nerves II-XII grossly intact, DTR 2+/4. No acute focal neurological deficit. Psych/Mental Status: Normal Affect, Appropriate. Weight / BMI Weight Weight: 216 lb 7.903 oz Body Mass Index (BMI) 34.0 ABG / Lab / Microbiology Data 01/01/24 05:59 01/01/24 05:56 Laboratory: Laboratory Results - last 24 hr 01/01/24 05:56: Sodium 142, Potassium 2.9 L, Chloride 110 H, Carbon Dioxide 25.0, Anion Gap 7, BUN 5 L, Creatinine 0.52 L, Estim Creat Clear Calc 178.45, Est GFR (MDRD) Af Amer 171, Est GFR (MDRD) Non-Af 141, BUN/Creatinine Ratio 9.5 L, Glucose 83, Calcium 8.3 L, Phosphorus 3.4, Magnesium 1.6 01/01/24 05:59: WBC 7.0, RBC 4.10 L, Hgb 11.5 L, Hct 35.1 L, MCV 85.6 D, MCH 28.0, MCHC 32.8 D, RDW Std Deviation 41.4, RDW Coeff of Timothy 13.4, Plt Count 250, MPV 12.1 H, Immature Gran % (Auto) 0.300, Neut % (Auto) 50.3, Lymph % (Auto) 38.8, [place] % (Auto) 8.3, Eos % (Auto) 1.9, Baso % (Auto) 0.4, Absolute Neuts (auto) 3.5, Absolute Lymphs (auto) 2.71, Nucleated RBC % 0 Radiography Diagnostic Testing: Radiology Impression Chest CT 12/31/23 17:15 IMPRESSION: No dominant mass or nodule. No adenopathy. Electronically Signed: John Isbael MD at 18:45 EDT , D/C Instructions Discharge Diet: Low fat / Low cholesterol and 2000 mg Sodium Diet Weight Bearing Status: Weight bearing as tolerated Call your doctor if you observe: Fever of 101 or Higher, Coldness, Increased Pain, Numbness or Tingling, Change in Color, Inability to urinate, Inability to have a bowel movement, Shortness of breath, Dizziness, Fainting spells, Swelling in the ankles, Chest pain, Prolonged hiccupping, Increased palpitations (irregular heartbeat) and Calf discomfort When: IN 2 WEEKS Meaningful Use Info Meaningful Use Meaningful Use Diagnoses (Choose all that apply): None applicable Ischemic Stroke Statin Dosing Therapy Reference: STATIN DOSE THERAPY REFERENCE: * Patients > 75 years receive moderate or high dose statin therapy. * Patients 75 years or YOUNGER should receive HIGH intensity statin dose unless contraindicated. You will be required to document reason for non-treatment if statin daily dose does not meet guidelines. HIGH DOSE STATIN THERAPY DAILY Atorvastatin > than or = to 40 mg Rosuvastatin > than or = to 20 mg Amlodipine + Atorvastatin > than or = to 2.5/40 mg Ezetimibe + Simvastatin 10/80 mg Simvastatin 80mg Discharge Plan Admission Admit Date/Time: 12/28/23 23:22 Primary Reason for Your Visit: Abdominal pain nausea possibly due to sigmoid volvulus decompressed with co Attending Provider: Jeff Peterson Primary Care Provider: Pilar Martin Consulting Providers: Jim Gasca; Saravanan Glynn Discharge Orders/Prescriptions Prescriptions: New magnesium chloride [Mag 64] 64 mg Tablet,Delayed Release (Dr/Ec) 128 mg PO BID 2 Days Qty: 8 0RF Continued cyclobenzaprine 10 mg Tablet 10 mg PO TID PRN (Reason: Pain) trazodone 100 mg Tablet 100 mg PO QHS duloxetine [Cymbalta] 60 mg Capsule,Delayed Release(Dr/Ec) 60 mg PO DAILY tramadol 100 mg tablet 100 mg PO TID PRN (Reason: pain) Qty: 14 0RF ondansetron 4 mg tablet,disintegrating 4 mg PO Q8H PRN (Reason: nausea and vomiting) Qty: 10 0RF promethazine 25 mg tablet 25 mg PO TID PRN (Reason: nausea and vomiting) Qty: 14 0RF metoclopramide HCl [Reglan] 10 mg tablet 10 mg PO Q6H PRN (Reason: nausea and vomiting) Qty: 10 0RF Benadryl Allergy 50 mg tablet 50 mg PO TID PRN (Reason: migraine headache) Qty: 10 0RF bupropion HCl 300 mg tablet extended release 24 hr 300 mg PO DAILY Patient Comments: TAKE FOR A TOTAL OF 450 MG bupropion HCl 150 mg tablet extended release 24 hr 150 mg PO DAILY Patient Comments: TAKE FOR A TOTAL OF 450 MG metoprolol succinate 50 mg tablet extended release 24 hr 50 mg PO DAILY lamotrigine 100 mg tablet 100 mg PO DAILY loratadine 10 mg tablet 10 mg PO DAILY cholecalciferol (vitamin D3) 1,250 mcg (50,000 unit) capsule 1,250 mcg PO QWEEK Aimovig Autoinjector 70 mg/mL auto-injector 70 mg subcut QMONTH Discontinued lorazepam 1 MG tablet 1 mg PO TID Qty: 10 0RF Referrals / Follow Up: Pilar Martin MD [Primary Care Provider] - Friend,DO Ernesto [Med Staff - Active Staff] - Within 1 Month Disposition Disposition (needs filled in before D/C Order can be placed): Home, Self Care Charges/Coding Visit Charges Inpatient E&M: 02261 Disch Hosp >30min
--- NOTE | 2024-01-01 11:24 | CASEMGMT ---
RN CM into pt room, pt sitting up in bed in no distress. Pt denies any home going needs.
--- NOTE | 2024-01-01 11:35 | PHA.DC.MR.R ---
Pharmacy [facility] Reconciliation Pharmacy Service has performed discharge medication reconciliation for this patient. The patient's discharge medication list was reviewed for discrepancies and discrepancies were resolved. Medications at Discharge Home Medications cyclobenzaprine 10 mg tablet 10 mg PO TID PRN Pain 09/23/21 duloxetine 60 mg capsule,delayed release (Cymbalta) 60 mg PO DAILY 09/23/21 trazodone 100 mg tablet 100 mg PO QHS 09/23/21 ondansetron 4 mg disintegrating tablet 4 mg PO Q8H PRN nausea and vomiting #10 tabs 09/24/21 tramadol 100 mg tablet 100 mg PO TID PRN pain #14 tabs 09/24/21 promethazine 25 mg tablet 25 mg PO TID PRN nausea and vomiting #14 tabs 10/31/21 diphenhydramine HCl 50 mg tablet (Benadryl Allergy) 50 mg PO TID PRN migraine headache #10 tabs 07/30/23 metoclopramide HCl 10 mg tablet (Reglan) 10 mg PO Q6H PRN nausea and vomiting #10 tabs 07/30/23 bupropion HCl 150 mg 24 hr tablet, extended release 150 mg PO DAILY 12/28/23 bupropion HCl 300 mg 24 hr tablet, extended release 300 mg PO DAILY 12/28/23 cholecalciferol (vitamin D3) 1,250 mcg (50,000 unit) capsule 1,250 mcg PO QWEEK 12/28/23 erenumab-aooe 70 mg/mL subcutaneous auto-injector (Aimovig Autoinjector) 70 mg subcut QMONTH 12/28/23 lamotrigine 100 mg tablet 100 mg PO DAILY 12/28/23 loratadine 10 mg tablet 10 mg PO DAILY 12/28/23 metoprolol succinate 50 mg tablet,extended release 24 hr 50 mg PO DAILY 12/28/23 magnesium chloride 64 mg (magnesium chloride) tablet,delayed release (Mag 64) 128 mg (2 x 64 mg) PO BID 2 days #8 tabs 01/01/24
[2024-01-01] MEDS: Magnesium Chloride 64 MG Delay Rel.Tablet 128 MG PO (11:53)
[2024-01-01 15:15] VITALS: BP 126/92; PULSE 73; RESP 16; TEMP 36.2; O2SAT 99
--- NOTE | 2024-01-01 17:06 | EX.PCM.PN.GI ---
Subjective Subjective Patient is abdominal pain has resolved. She is tolerating a diet. Objective Data Objective Data Vital Signs: Vital Signs Temp Pulse Resp BP Pulse Ox O2 Del Method 97.2 F L 73 16 126/92 H 99 Room Air 01/01/24 15:15 01/01/24 15:15 01/01/24 15:15 01/01/24 15:15 01/01/24 15:15 01/01/24 15:15 Oxygen Delivery Method Room Air Weight: 216 lb 7.903 oz Body Mass Index (BMI) 34.0 Intake & Output: Intake and Output for Last 24 Hours 12/30/23 12/31/23 01/01/24 23:59 23:59 23:59 Intake Total 2195.83 / 2195.83 1020 / 1020 Output Total 50 / 50 Balance 2145.83 / 2145.83 1020 / 1020 Lab / Micro Data 01/01/24 05:59 01/01/24 05:56 Labs: Laboratory Results - last 24 hr 01/01/24 05:56: Sodium 142, Potassium 2.9 L, Chloride 110 H, Carbon Dioxide 25.0, Anion Gap 7, BUN 5 L, Creatinine 0.52 L, Estim Creat Clear Calc 178.45, Est GFR (MDRD) Af Amer 171, Est GFR (MDRD) Non-Af 141, BUN/Creatinine Ratio 9.5 L, Glucose 83, Calcium 8.3 L, Phosphorus 3.4, Magnesium 1.6 01/01/24 05:59: WBC 7.0, RBC 4.10 L, Hgb 11.5 L, Hct 35.1 L, MCV 85.6 D, MCH 28.0, MCHC 32.8 D, RDW Std Deviation 41.4, RDW Coeff of Timothy 13.4, Plt Count 250, MPV 12.1 H, Immature Gran % (Auto) 0.300, Neut % (Auto) 50.3, Lymph % (Auto) 38.8, [place] % (Auto) 8.3, Eos % (Auto) 1.9, Baso % (Auto) 0.4, Absolute Neuts (auto) 3.5, Absolute Lymphs (auto) 2.71, Nucleated RBC % 0 Radiography Diagnostic Testing: Radiology Impression Chest CT 12/31/23 17:15 IMPRESSION: No dominant mass or nodule. No adenopathy. Electronically Signed: John Isabel MD at 18:45 EDT , Physical Exam Narrative Seen and examined. Patient is still complaining of right lower quadrant abdominal pain. She had a small bowel movement yesterday and in the morning. Started on regular diet. No fever. Physical exam General: Alert, Oriented x3, Cooperative HEENT: Atraumatic, PERRLA, EOMI, Normocephalic Oral: No Gingival or Mucosal Lesions/ Ulcerations Neck: Supple, No JVD, Negative Carotid Bruits Chest wall/Lungs: Air entry diminished in bilateral lung bases. No crepitation/rhonchi Cardiovascular: Regular rate, Regular Rhythm, Normal S1, Normal S2, No M/G/R Abdomen: Bowel sounds very sluggish. Tenderness present over right lower quadrant. Soft, Non-Distended. Had Masoud-en-Y gastric bypass surgery. : No dysuria. No renal angle tenderness. No suprapubic tenderness. Extremities: No edema, Capillary Refill Less than 3 Seconds Skin: No rashes, No breakdown Musculoskeletal: No Tenderness to Palpation of Joints or Extremities Neurological: Cranial nerves II-XII grossly intact, DTR 2+/4. No acute focal neurological deficit. Psych/Mental Status: Normal Affect, Appropriate. Assessment & Plan Assessment/Plan (1) Abdominal pain: (2) Acute pseudo-obstruction of colon: PLAN: Plan Patient is a 33-year-old female who presented to [facility] ED on 12/28/2023 with worsening abdominal pain and nausea. 1. Abdominal pain and nausea, concern for small bowel obstruction versus pseudoobstruction of colon; history of Masoud-en-Y gastric bypass surgery ? GI following. Had Masoud-en-Y gastric bypass surgery done in May 2023. Per patient, had some postoperative abdominal issues but these largely resolved by early 2023 and patient had been doing well. CT abdomen pelvis without contrast on admit showed no small bowel distention to suggest SBO, marked distention of colon and rectum predominantly gas-filled with additional low-attenuation stool. Had NG tube placed on admit for decompression. KUB post NGT placement and on morning of 12/28 both showed concern for high-grade partial small bowel obstruction. Had CT abdomen pelvis with oral contrast done on afternoon of 12/28 that showed mild gaseous distention of the colon with slight improvement compared to prior exam, no small bowel obstruction. Patient had colonoscopy Colonoscopy 12/30/2023 Decompression colonoscopy was performed. Patient is not having any more abdominal pain and having bowel movements. She can follow-up in the clinic if okay with primary service. Charges/Coding Visit Charges Inpatient E&M: 96313 Subs Hosp L3
== END 2024-01-01 15:41 | disposition home or self-care (01) | DRG 247 ==
LOC: ED 22:45 → ICU 12-29 07:13 → MS3 12-29 08:42
PROVIDERS: Hospitalist; Internal Medicine Gastroenterology; Admitting Provider Family Medicine; Emergency Provider Emergency Medicine; PCP Internal Medicine; Visit Provider Internal Medicine
PROC: 0DJD8ZZ Inspection of Lower Intestinal Tract, Via Natural or Artificial Opening Endoscopic (ICD-10-PCS; CPT 45378; principal; 2023-12-30 15:10)
DX: K56.2 Volvulus (principal); E66.01 Morbid (severe) obesity due to excess calories; I10 Essential (primary) hypertension; F32.A Depression, unspecified; F41.9 Anxiety disorder, unspecified; K59.03 Drug induced constipation; G47.00 Insomnia, unspecified; Z68.33 Body mass index [BMI] 33.0-33.9, adult; Z79.891 Long term (current) use of opiate analgesic; Z79.899 Other long term (current) drug therapy; Z98.84 Bariatric surgery status; Z90.49 Acquired absence of other specified parts of digestive tract; Z90.710 Acquired absence of both cervix and uterus
CPT/HCPCS: 36415; 71250; 74018; 74176; 74177; 80048; 80053; 81001; 82378; 83605; 83615; 83735; 84100; 85025; 85610; 86140; 96374; 96375; 99285; J7030; Q9967; A4216; J2405

== ENCOUNTER → 2024-02-12 | Outpatient (CLI) | payer MEDICAID, SELFPAY ==
[2024-02-12 14:53] LABS: Absolute Lymphocyte Count 2.24 X10^3/uL (0.83-4.51); Absolute Neutrophil Count 4.2 X10^3/uL (2.0-7.7); Basophil# 0.04 X10^3/uL; Basophil% 0.6 % (0-1); Eosinophil# 0.14 X10^3/uL; Hematocrit 40.5 % (37-47); Hemoglobin 13.3 g/dL (12.0-15.0); Lymphocyte # 2.24 X10^3/ul (0.83-4.51); Lymphocyte % 31.5 % (19-41); Mean Corp Hgb Conc 32.8 g/dL (32-36); Mean Corpuscular Hgb 28.5 pg (27.0-32.0); Mean Corpuscular Volume 86.7 fL (81-99); Mean Platelet Vol. 12.6 fl (6.2-12.0); Monocyte# 0.52 X10^3/uL; Monocyte% 7.3 % (0-10); NRBC Flagged by Analyzer 0 % (0-5); Neutrophil # 4.16 X10^3/uL (2.7-7.7); Neutrophil % 58.5 % (47-70); Platelet Count 286 K/mm3 (150-450); RBC Distribution Width CV 14.2 % (11.6-14.6); RBC Distribution Width SD 44.4 fl (35.1-43.9); Red Blood Count 4.67 M/mm3 (4.2-5.4); Reticulocyte Count 0.99 % (0.5-1.5); White Blood Count 7.1 K/mm3 (4.4-11.0)
[2024-02-12 14:58] LABS: Erythrocyte Sedimentation Rate 6 mm/hr (0-30)
[2024-02-12 15:01] LABS: Prothrombin Time (Protime)PT. 13.6 SECONDS (11.7-14.9)
[2024-02-12 15:36] LABS: Hemoglobin A1c 4.9 % (3.8-5.6)
[2024-02-12 15:56] LABS: AST(SGOT) 19 U/L (15-37); Alanine Aminotransfer ALT/SGPT 20 U/L (13-56); Albumin, Serum 3.5 g/dL (3.2-5.0); Alkaline Phosphatase 88 U/L (45-117); Anion Gap 5 (5-15); BUN 8 mg/dL (7-18); BUN/Creat Ratio 11.1 RATIO (10-20); CRP < 2.90 mg/L (0.0-3.0); Chloride 109 mmol/L (98-107); Cholesterol 127 mg/dL (200); Creatinine, Serum 0.72 mg/dL (0.55-1.02); EST Glomerular Filtration Rate 98 mL/min (>60); Est Glom Filt Rate - Afr Amer 118 mL/min (>60); Ferritin 30 ng/mL (8-252); Globulin 3.4 g/dL (2.2-4.2); Glucose 78 mg/dL (74-106); High Density Lipoprotein 64 mg/dL; Iron 60 ug/dL (50-170); Iron Binding Capacity,Total 376 ug/dL (250-450); LDH 160 U/L (84-246); Potassium 3.5 mmol/L (3.5-5.1); Protein, Total 6.9 g/dL (6.4-8.2); Sodium Level 140 mmol/L (136-145); Thyroid Stim Hormone (TSH) 0.41 uIU/mL (0.358-3.74); Triglycerides 93 mg/dL; Very Low Density Lipoprotein 19 mg/dL (5-40)
[2024-02-19 04:07] LABS: Anti-Centromere B Ab <0.2 AI (0.0-0.9); Anti-Chromatin <0.2 AI (0.0-0.9); Anti-Jo <0.2 AI (0.0-0.9); Anti-Mitochondrial AB <20.0 Units (0.0-20.0); Anti-Scleroderma-70 AB <0.2 AI (0.0-0.9); Anti-dsDNA Ab <1 IU/mL (0-9); Beef <0.10 kU/L (Class 0); Chocolate <0.10 kU/L (Class 0); Codfish <0.10 kU/L (Class 0); Corn <0.10 kU/L (Class 0); Egg, Whole <0.10 kU/L (Class 0); Milk (Cow) <0.10 kU/L (Class 0); Mussels <0.10 kU/L (Class 0); Peanut <0.10 kU/L (Class 0); Pork <0.10 kU/L (Class 0); RNP Ab <0.2 AI (0.0-0.9); SJOGREN'S Anti-SS-A test < 0.2 AI (0.0-0.9); SJOGREN'S Anti-SS-B test < 0.2 AI (0.0-0.9); Salmon <0.10 kU/L (Class 0); Shrimp <0.10 kU/L (Class 0); Smith Ab <0.2 AI (0.0-0.9); Soybean <0.10 kU/L (Class 0); Tuna <0.10 kU/L (Class 0); Wheat <0.10 kU/L (Class 0)
[2024-02-19 05:07] LABS: Albumin 3.5 g/dL (2.9-4.4); Alpha-1-Globulins 0.2 g/dL (0.0-0.4); Alpha-2-Globulins 0.6 g/dL (0.4-1.0); Angiotensin Convert Enzyme 36 U/L (14-82); Anti-Smooth Muscle ABS 5 Units (0-19); Cytoplasmic Ab (C-ANCA) <1:20 titer (Neg:<1:20); Gamma Globulin 0.9 g/dL (0.4-1.8); HEPATITIS B SURFACE AG Negative (Negative); Hep C Antibodies Non Reactive (Non Reactive); Hepatitis A IgM Antibody Negative (Negative); Hepatitis B Core AB IgM Negative (Negative); Immunoglobulin A 213 mg/dL (87-352); Immunoglobulin E 5 IU/mL (6-495); Immunoglobulin G 954 mg/dL (586-1602); Immunoglobulin M 165 mg/dL (26-217); PROEL- TOTAL PROTEIN 6.1 g/dL (6.0-8.5); Perinuclear Ab (P-ANCA) <1:20 titer (Neg:<1:20)
== END | disposition home or self-care (01) ==
PROVIDERS: PCP Internal Medicine; Referring Provider Internal Medicine Gastroenterology; Visit Provider Internal Medicine Gastroenterology
DX: E66.01 Morbid (severe) obesity due to excess calories (principal)
CPT/HCPCS: 36415; 80053; 80061; 80074; 82164; 82652; 82728; 82784; 82785; 83036; 83516; 83540; 83550; 83615; 84165; 84443; 85025; 85045; 85610; 85652; 86003; 86005; 86140; 86225; 86235; 86256; 86334

== ENCOUNTER 2024-02-28 10:16 | Emergency (ER) | payer MEDICAID, SELFPAY ==
[2024-02-28 10:16] VITALS: BP 132/98; PULSE 77; RESP 16; TEMP 36.7; O2SAT 99; BMI 31.8
--- NOTE | 2024-02-28 10:27 | CT_ITS ---
HISTORY: Right-sided abdominal pain. TECHNIQUE: Helically acquired images were obtained of the abdomen and pelvis after the intravenous administration of 100mL Isovue-370. A radiation dose optimization technique was used for this scan. 383 images. COMPARISON: 12/29/2023. FINDINGS: LOWER CHEST: Lung bases clear. BOWEL: Nasogastric tube removed. Small hiatal hernia. Gastric bypass with mild wall thickening at the gastrojejunal anastomosis. Bowel including appendix nondilated. Diffuse prominence of the colonic wall with underdistention. PERITONEUM: No significant ascites. LIVER: 3 mm hypodensity in the left lateral lobe. Hepatomegaly and portal perfusion perfusion defect at the falciform ligament again seen. GALLBLADDER/BILIARY TREE: Absent gallbladder. SPLEEN: Homogeneous and nonenlarged. PANCREAS: Homogeneous and nonenlarged. ADRENAL GLANDS/KIDNEYS: Unremarkable. VESSELS: No abdominal aortic aneurysm. PELVIC ORGANS: Absent uterus. BONES: Intact. Chronic Schmorl''s nodes at the lower thoracic spine. CT/Abdomen/Pelvis W IV Cont ONLY IMPRESSION: Gastric bypass with mild wall thickening of the gastrojejunal anastomosis from gastroenteritis or mild edema. Mild wall thickening of the colon, which can be seen with mild pancolitis. 3 mm hypodense lesion in the left lateral hepatic lobe, not seen on prior. For patients with a low risk of malignancy, no further follow-up is necessary. For patients with high risk of malignancy (known malignancy with a propensity to metastasize to the liver, cirrhosis, and/or other hepatic risk factors), recommend follow-up abdominal MR in 3-6 months. Electronically Signed: Lulu Rushing MD at 11:46 EDT ,
--- NOTE | 2024-02-28 10:27 | ED.VIS.GI ---
HPI HPI - GI History of Present Illness Chief Complaint: Abd Pain Narrative Narrative: 33-year-old female past medical history of gastric bypass, cholecystectomy, presents with right-sided abdominal pain that she has had since around 8:00 this morning, 2-1/2 hours ago. She states that she ate breakfast and was feeling okay at work, and after eating a sausage egg and cheese burrito, she had nausea and vomiting. She then developed pain in the right side of her abdomen/right flank. She states she has history of being admitted to the hospital for 7 weeks at the end of December because of a colon obstruction. 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 She presents because of the pain in her right side that is throbbing in nature. She is concerned about bowel obstruction. She did have a bowel movement prior to arrival. She states is at her baseline for her as ever since her gastric bypass that she has had loose stool/diarrhea. [facility] Medical History Brachial plexus injury Left axillary cellulitis with abscess Home Medications ?Medication ?Instructions ?Recorded ?Last Taken ?Type cyclobenzaprine 10 mg tablet 10 mg PO TID PRN Pain 09/23/21 Unknown History duloxetine 60 mg capsule,delayed 60 mg PO DAILY 09/23/21 Unknown History release (Cymbalta) trazodone 100 mg tablet 100 mg PO QHS 09/23/21 Unknown History ondansetron 4 mg disintegrating 4 mg PO Q8H PRN nausea and 09/24/21 Unknown Rx tablet vomiting #10 tabs tramadol 100 mg tablet 100 mg PO TID PRN pain #14 tabs 09/24/21 Unknown Rx promethazine 25 mg tablet 25 mg PO TID PRN nausea and 10/31/21 Unknown Rx vomiting #14 tabs diphenhydramine HCl 50 mg tablet 50 mg PO TID PRN migraine headache 07/30/23 Unknown Rx (Benadryl Allergy) #10 tabs metoclopramide HCl 10 mg tablet 10 mg PO Q6H PRN nausea and 07/30/23 Unknown Rx (Reglan) vomiting #10 tabs bupropion HCl 150 mg 24 hr tablet, 150 mg PO DAILY 12/28/23 Unknown History extended release bupropion HCl 300 mg 24 hr tablet, 300 mg PO DAILY 12/28/23 Unknown History extended release cholecalciferol (vitamin D3) 1,250 1,250 mcg PO QWEEK 12/28/23 Unknown History mcg (50,000 unit) capsule erenumab-aooe 70 mg/mL 70 mg subcut QMONTH 12/28/23 Unknown History subcutaneous auto-injector (Aimovig Autoinjector) loratadine 10 mg tablet 10 mg PO DAILY 12/28/23 Unknown History metoprolol succinate 50 mg 50 mg PO DAILY 12/28/23 Unknown History tablet,extended release 24 hr magnesium chloride 64 mg 128 mg (2 x 64 mg) PO BID 2 days 01/01/24 Unknown Rx (magnesium chloride) #8 tabs tablet,delayed release (Mag 64) lamotrigine 100 mg tablet 75 mg PO DAILY 02/12/24 Unknown History lamotrigine 150 mg tablet 75 mg PO DAILY 02/12/24 Unknown History (Lamictal) ciprofloxacin HCl 500 mg tablet 500 mg PO BID #14 tabs 02/28/24 Unknown Rx (Cipro) metronidazole 500 mg tablet 500 mg PO TID 7 days #21 tabs 02/28/24 Unknown Rx Allergy/AdvReac Type Severity Reaction Status Date / Time hydromorphone HCl (From Allergy Other Verified 02/28/24 10:17 Dilaudid) vancomycin Allergy Rash Verified 02/28/24 10:17 acetaminophen (From Vicodin) AdvReac Vomiting Verified 02/28/24 10:17 hydrocodone (From Vicodin) AdvReac Vomiting Verified 02/28/24 10:17 oxycodone (From Percocet) AdvReac Vomiting Verified 02/28/24 10:17 Surgical History H/O gastric bypass H/O: hysterectomy Hx of cholecystectomy Social History Smoking Status: Never smoker ROS ROS ED ROS Narrative Constitutional: No fever, no chills. HEENT: No sore throat. No neck pain. No loss of vision. No rhinorrhea. Cardiovascular: No chest pain. No palpitations. No pedal edema. Respiratory: No cough, no shortness of breath. Abdominal: Right-sided abdominal pain/right flank, mid quadrant. Positive nausea and vomiting. Chronic diarrhea. Genitourinary: No dysuria. No hematuria. Musculoskeletal: No myalgias. No arthralgias. Neurologic: No headaches. No dizziness. No lightheadedness. Skin: No rash. No change in color. Psychiatric: No depression. No anxiety. EXAM Physical Exam Narrative Exam Narrative: Afebrile. Vital signs noted. Nontoxic-appearing. HEENT: Normocephalic. Atraumatic. PERRL, EOMI. Neck soft and supple. No point tenderness or step off. Cardiovascular: Regular rate and rhythm. No murmurs, rubs, or gallops appreciated. Respiratory: No tachypnea. Lungs clear to auscultation bilaterally. Gastrointestinal: Abdomen soft, mild tenderness between right upper and lower quadrants of abdomen. With normoactive bowel sounds. No rebound or guarding. Neurological: Awake. Alert. Nonfocal, nonlateralizing. Skin: No rash. Normal color. No pallor. Musculoskeletal: No pedal edema. Full range of motion extremities. Const Vital Signs: 02/28/24 10:16 02/28/24 12:13 Temperature 98.0 F 98 F Temperature Source Temporal Pulse Rate 77 58 L Respiratory Rate 16 16 Blood Pressure 132/98 H 119/80 Blood Pressure Mean 109 93 Pulse Ox 99 99 Oxygen Delivery Method Room Air MDM MDM MDM Narrative Medical decision making narrative: Differential diagnosis includes but not limited to diverticulitis versus bowel obstruction versus gastroenteritis versus nonspecific abdominal pain. Given her history of gastric bypass and cholecystectomy, concern is more for bowel obstruction and low concern for any gallbladder pathology because it is absent. I reviewed her prior ED visits. I also reviewed her admission notes. Her CT that she had did show colonic dilation. According to gastroenterology, this was consistent with colonic pseudoobstruction. They thought that it was perhaps induced by serotonin and additive anticholinergics. I reviewed her laboratory work and she has normal white count of 6.2, hemoglobin 12.4, hematocrit 38.8, platelet count normal at 307. Electrolyte panel is significant for chloride of 111 which I think is nonspecific in her case, glucose 74 with a normal anion gap of 7. LFTs are grossly unremarkable. Lipase normal at 19 so I doubt pancreatitis. Serum is negative. She requested something for pain which she has allergies to narcotics, and I do not feel morphine is indicated given its anticholinergic properties as well as she had problems with pseudoobstruction. She was given Toradol intravenously. Urinalysis is negative for infection although there are 25-50 squamous epithelial cells. I do not feel antibiotics are indicated. I reviewed the radiology report of the CT of the abdomen and pelvis and while there is no evidence of obstruction or pseudoobstruction, no other acute process she has mild thickening of the colonic wall which could be consistent with pancolitis. However, I will defer steroids to gastroenterology. At this point in time, I feel she can be discharged to follow-up. She was given a note to be off work today and tomorrow and she will call gastroenterology, Dr. Flores tomorrow. I was able to speak to Dr. Flores and he suggested putting her on a week of Cipro and Flagyl. She will still follow-up with him and call the office tomorrow for an appointment to be seen. Return instructions to the emergency department were reviewed. Disposition is discharged home in stable condition. History & Record Review Discussion w/independent historian: Patient Additional record(s) reviewed:: Prior inpatient record and Prior ED visit Lab Data Attestation: I reviewed the patient's lab results. Labs: Laboratory Results - last 24 hr 02/28/24 02/28/24 10:30 11:03 WBC 6.2 RBC 4.45 Hgb 12.4 Hct 38.8 MCV 87.2 MCH 27.9 MCHC 32.0 RDW Std Deviation 44.9 H RDW Coeff of Timothy 14.2 Plt Count 307 MPV 11.9 Immature Gran % (Auto) 0.300 Neut % (Auto) 59.6 Lymph % (Auto) 27.3 [place] % (Auto) 9.9 Eos % (Auto) 2.3 Baso % (Auto) 0.6 Absolute Neuts (auto) 3.7 Absolute Lymphs (auto) 1.68 Nucleated RBC % 0 Sodium 141 Potassium 3.8 Chloride 111 H Carbon Dioxide 23.0 Anion Gap 7 BUN 11 Creatinine 0.71 Estim Creat Clear Calc 124.52 Est GFR (MDRD) Af Amer 120 Est GFR (MDRD) Non-Af 99 BUN/Creatinine Ratio 15.5 Glucose 74 Calcium 9.0 Total Bilirubin 0.40 AST 18 ALT 23 Alkaline Phosphatase 89 Total Protein 6.5 Albumin 3.2 Globulin 3.3 Albumin/Globulin Ratio 1.0 Lipase 19 Serum , Qual NEGATIVE Urine Color Yellow Urine Clarity Clear Urine pH 7.0 Ur Specific [place] 1.010 Urine Protein Negative Urine Glucose (UA) Normal Urine Ketones Negative Urine Occult Blood Negative Urine Nitrite Negative Urine Bilirubin Negative Urine Urobilinogen Normal Ur Leukocyte Esterase Negative Urine RBC 0 SEEN Urine WBC 0 SEEN Ur Squamous Epith Cells 25-50 SEEN Urine Bacteria 2+ Urine Mucus 1+ Radiography Diagnostic Testing: Clinical Impression(s) from Imaging Studies Abdomen/Pelvis CT 02/28/24 10:27 IMPRESSION: Gastric bypass with mild wall thickening of the gastrojejunal anastomosis from gastroenteritis or mild edema. Mild wall thickening of the colon, which can be seen with mild pancolitis. 3 mm hypodense lesion in the left lateral hepatic lobe, not seen on prior. For patients with a low risk of malignancy, no further follow-up is necessary. For patients with high risk of malignancy (known malignancy with a propensity to metastasize to the liver, cirrhosis, and/or other hepatic risk factors), recommend follow-up abdominal MR in 3-6 months. Electronically Signed: Lulu Rushing MD at 11:46 EDT , Discharge Plan Triage Chief Complaint: Abd Pain ED Provider: Negro Matthews Dx/Rx/DC Orders Clinical Impression: Abdominal pain, Nausea and vomiting, Pancolitis Instructions: ED Understanding Colitis, ED Abdominal Pain Unkn Cause Fem, ED Vomiting (Adult) Prescriptions: New ciprofloxacin HCl [Cipro] 500 mg tablet 500 mg PO BID Qty: 14 0RF metronidazole 500 mg tablet 500 mg PO TID 7 Days Qty: 21 0RF No Action lamotrigine [Lamictal] 150 mg tablet 75 mg PO DAILY cyclobenzaprine 10 mg Tablet 10 mg PO TID PRN (Reason: Pain) trazodone 100 mg Tablet 100 mg PO QHS duloxetine [Cymbalta] 60 mg Capsule,Delayed Release(Dr/Ec) 60 mg PO DAILY tramadol 100 mg tablet 100 mg PO TID PRN (Reason: pain) Qty: 14 0RF ondansetron 4 mg tablet,disintegrating 4 mg PO Q8H PRN (Reason: nausea and vomiting) Qty: 10 0RF promethazine 25 mg tablet 25 mg PO TID PRN (Reason: nausea and vomiting) Qty: 14 0RF metoclopramide HCl [Reglan] 10 mg tablet 10 mg PO Q6H PRN (Reason: nausea and vomiting) Qty: 10 0RF Benadryl Allergy 50 mg tablet 50 mg PO TID PRN (Reason: migraine headache) Qty: 10 0RF bupropion HCl 300 mg tablet extended release 24 hr 300 mg PO DAILY Patient Comments: TAKE FOR A TOTAL OF 450 MG bupropion HCl 150 mg tablet extended release 24 hr 150 mg PO DAILY Patient Comments: TAKE FOR A TOTAL OF 450 MG metoprolol succinate 50 mg tablet extended release 24 hr 50 mg PO DAILY loratadine 10 mg tablet 10 mg PO DAILY cholecalciferol (vitamin D3) 1,250 mcg (50,000 unit) capsule 1,250 mcg PO QWEEK Aimovig Autoinjector 70 mg/mL auto-injector 70 mg subcut QMONTH magnesium chloride [Mag 64] 64 mg Tablet,Delayed Release (Dr/Ec) 128 mg PO BID 2 Days Qty: 8 0RF lamotrigine 100 mg tablet 75 mg PO DAILY Stand Alone Forms: ED Work / School Excuse Primary Care Provider: Pilar Martin Referrals: Pilar Martin MD [Primary Care Provider] - Ernesto Florse DO [Med Staff - Active Staff] - 1 Day Activity Restrictions/Additional Instructions: Return with increased pain, new or worsening symptoms. Call Dr. Flores with gastroenterology tomorrow. Print Language: Lao Disposition Disposition: Home, Self Care Discharge Date/Time: 02/28/24 12:14
[2024-02-28] MEDS: Ondansetron 4 MG/2 ML Vial IV (10:33)
[2024-02-28 10:49] LABS: Absolute Lymphocyte Count 1.68 X10^3/uL (0.83-4.51); Absolute Neutrophil Count 3.7 X10^3/uL (2.0-7.7); Basophil# 0.04 X10^3/uL; Basophil% 0.6 % (0-1); Eosinophil# 0.14 X10^3/uL; Eosinophils% 2.3 % (0-5); Hematocrit 38.8 % (37-47); Hemoglobin 12.4 g/dL (12.0-15.0); Lymphocyte # 1.68 X10^3/ul (0.83-4.51); Lymphocyte % 27.3 % (19-41); Mean Corpuscular Hgb 27.9 pg (27.0-32.0); Mean Corpuscular Volume 87.2 fL (81-99); Mean Platelet Vol. 11.9 fl (6.2-12.0); Monocyte# 0.61 X10^3/uL; Monocyte% 9.9 % (0-10); NRBC Flagged by Analyzer 0 % (0-5); Neutrophil # 3.67 X10^3/uL (2.7-7.7); Neutrophil % 59.6 % (47-70); Platelet Count 307 K/mm3 (150-450); RBC Distribution Width CV 14.2 % (11.6-14.6); RBC Distribution Width SD 44.9 fl (35.1-43.9); Red Blood Count 4.45 M/mm3 (4.2-5.4); White Blood Count 6.2 K/mm3 (4.4-11.0)
[2024-02-28 11:10] LABS: Red Blood Cells-Urine 0 SEEN /hpf (0-5); White Blood Cells 0 SEEN /hpf (0-5)
[2024-02-28 11:16] LABS: Internal QC Validated? YES +Cl - CLEAR BKGD; Pregnancy, Serum, hCG Quali. NEGATIVE Negative
[2024-02-28 11:22] LABS: Color, Urine Yellow (Yellow); Glucose, Dipstick Normal (Normal); Ketone-Dipstick Negative (Negative); Leukocyte Esterase-Dipstick Negative /ul (Negative); Nitrite-Dipstick Negative (Negative); Occult Blood-Urine Negative /ul (Negative); Protein-Dipstick Negative (Negative); Urine Bilirubin Dipstick Negative (Negative); Urine Clarity Clear (Clear); Urine Urobilinogen Normal (Normal)
[2024-02-28 11:23] LABS: AST(SGOT) 18 U/L (15-37); Alanine Aminotransfer ALT/SGPT 23 U/L (13-56); Albumin, Serum 3.2 g/dL (3.2-5.0); Alkaline Phosphatase 89 U/L (45-117); Anion Gap 7 (5-15); BUN 11 mg/dL (7-18); BUN/Creat Ratio 15.5 RATIO (10-20); Chloride 111 mmol/L (98-107); Creatinine, Serum 0.71 mg/dL (0.55-1.02); EST Glomerular Filtration Rate 99 mL/min (>60); Est Glom Filt Rate - Afr Amer 120 mL/min (>60); Estimated Creatinine Clearance 124.52 ml/min; Globulin 3.3 g/dL (2.2-4.2); Glucose 74 mg/dL (74-106); Lipase 19 U/L (13-75); Potassium 3.8 mmol/L (3.5-5.1); Protein, Total 6.5 g/dL (6.4-8.2); Sodium Level 141 mmol/L (136-145)
[2024-02-28] MEDS: Ketorolac 30 MG/ML Syringe IV (11:25)
[2024-02-28 11:31] LABS: Bacteria 2+ /hpf (None Seen); Mucous, Urine 1+ /hpf (<or=2+); Squamous Epithelial Cells - UA 25-50 SEEN /hpf (5-10)
--- NOTE | 2024-02-28 12:10 | ED.RN ---
1 liter IV fluids infused
[2024-02-28 12:13] VITALS: BP 119/80; PULSE 58; RESP 16; TEMP 36.6; O2SAT 99
== END 2024-02-28 12:14 | disposition home or self-care (01) ==
PROVIDERS: Emergency Provider Emergency Medicine; PCP Internal Medicine; Visit Provider Emergency Medicine
DX: R10.9 Unspecified abdominal pain (principal); K51.00 Ulcerative (chronic) pancolitis without complications; R11.2 Nausea with vomiting, unspecified; Z98.84 Bariatric surgery status; Z90.49 Acquired absence of other specified parts of digestive tract; Z79.899 Other long term (current) drug therapy
CPT/HCPCS: 74177; 80053; 81001; 83690; 84703; 85025; 96374; 96375; 99282; J7030; Q9967; A4216; J2405

== ENCOUNTER 2024-05-05 21:35 | Emergency (ER) | payer MEDICAID, SELFPAY ==
[2024-05-05 21:36] VITALS: BP 125/86; PULSE 82; RESP 16; TEMP 36.8; O2SAT 98; BMI 32.1
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
[2024-05-05 22:48] LABS: Absolute Neutrophil Count 5.3 X10^3/uL (2.0-7.7); Basophil# 0.03 X10^3/uL; Basophil% 0.4 % (0-1); Eosinophil# 0.14 X10^3/uL; Eosinophils% 1.7 % (0-5); Hematocrit 39.2 % (37-47); Hemoglobin 12.6 g/dL (12.0-15.0); Lymphocyte % 25.5 % (19-41); Mean Corp Hgb Conc 32.1 g/dL (32-36); Mean Corpuscular Hgb 28.6 pg (27.0-32.0); Mean Corpuscular Volume 89.1 fL (81-99); Mean Platelet Vol. 11.5 fl (6.2-12.0); Monocyte# 0.66 X10^3/uL; NRBC Flagged by Analyzer 0 % (0-5); Neutrophil # 5.28 X10^3/uL (2.7-7.7); Neutrophil % 64.3 % (47-70); Platelet Count 298 K/mm3 (150-450); RBC Distribution Width CV 13.9 % (11.6-14.6); RBC Distribution Width SD 45.4 fl (35.1-43.9); White Blood Count 8.2 K/mm3 (4.4-11.0)
[2024-05-05 23:02] LABS: Anion Gap 5 (5-15); BUN 11 mg/dL (7-18); BUN/Creat Ratio 16.2 RATIO (10-20); Calcium,Total 8.8 mg/dL (8.5-10.1); Chloride 111 mmol/L (98-107); Creatinine, Serum 0.68 mg/dL (0.55-1.02); EST Glomerular Filtration Rate 104 mL/min (>60); Est Glom Filt Rate - Afr Amer 126 mL/min (>60); Estimated Creatinine Clearance 126.18 ml/min; Glucose 91 mg/dL (74-106); Potassium 3.7 mmol/L (3.5-5.1); Sodium Level 141 mmol/L (136-145)
== END 2024-05-05 23:26 | disposition home or self-care (01) ==
PROVIDERS: Emergency Provider Emergency Medicine; PCP Internal Medicine; Visit Provider Emergency Medicine
DX: G40.909 Epilepsy, unspecified, not intractable, without status epilepticus (principal); F41.9 Anxiety disorder, unspecified; Z98.84 Bariatric surgery status
CPT/HCPCS: 80048; 85025; 99284

== ENCOUNTER 2024-05-07 23:00 | Emergency (ER) | payer MEDICAID, SELFPAY ==
[2024-05-07 23:02] VITALS: BP 144/97; PULSE 75; RESP 14; TEMP 36.8; O2SAT 99; BMI 32.8
--- NOTE | 2024-05-07 23:40 | EKG12_ITS ---
Test Reason : DYSRHYTHMIA Blood Pressure : */* mmHG Vent. Rate : 71 BPM Atrial Rate : 71 BPM P-R Int : 132 ms QRS Dur : 80 ms QT Int : 396 ms P-R-T Axes : 49 23 40 degrees QTcB Int : 430 ms Normal sinus rhythm Normal ECG Confirmed by Duane Mccain ([id number]), medical transcription editor THERESA CLEVELAND ([id number]) on 05/09/2024 9:19:50 AM Referred By: LUPE Confirmed By: Duane Mccain
--- NOTE | 2024-05-07 23:59 | RAD_ITS ---
INDICATION: seizure EXAMINATION/TECHNIQUE: X-RAY - XR Chest 1 View COMPARISON: Prior study dated: 07/30/2023 FINDINGS: LINES/DEVICES: None. LUNGS: The lungs are well expanded. No consolidation, edema or effusion. No pneumothorax. MEDIASTINUM AND CARDIOVASCULAR STRUCTURES: Cardiac silhouette not enlarged. Central airways and mediastinal contour are unremarkable. BONES AND SOFT TISSUES: No acute abnormality. Tiny radiopaque densities in the left supraclavicular region. This is unchanged. RAD/Chest 1 View (Portable) IMPRESSION: No acute pulmonary finding. Electronically Signed: Scottie Schwab MD at 0:29 EDT ,
--- NOTE | 2024-05-08 | CT_ITS ---
INDICATION: seizure EXAMINATION: CT BRAIN - CT Head or Brain W/O Contrast Injection TECHNIQUE: Multiple axial images were obtained of the head without intravenous contrast. A radiation dose optimization technique was used for this scan. IV Contrast dosage and agent: None. RADIATION DOSAGE (If Supplied By Facility): CTDIvol = ( 44.99 ) mGy, DLP = ( 796.11 ) mGycm COMPARISON: Prior study dated: 05/29/2022 FINDINGS: BRAIN PARENCHYMA: No intra- or extra-axial hemorrhage. No evidence of acute infarct. No intracranial mass or mass effect. There is preservation of the ambrose/white matter interface. Posterior fossa structures are unremarkable. No parenchymal abnormality. CSF SPACES: No cerebral volume loss. No hydrocephalus. Basal cisterns are patent. CALVARIUM, SKULL BASE, PARANASAL SINUSES AND MASTOID AIR CELLS: The mastoid air cells and visualized paranasal sinuses are well aerated. The calvarium is intact. No discrete lytic or blastic abnormalities. ORBITS: Both globes, extraocular muscles, optic nerves and retrobulbar fat appear unremarkable. CT/Brain/Head without Contrast IMPRESSION: No acute intracranial finding. Electronically Signed: Scottie Schwab MD at 1:31 EDT ,
[2024-05-08 00:01] VITALS: BP 125/84; PULSE 70; RESP 16; O2SAT 99
[2024-05-08 00:08] LABS: Absolute Lymphocyte Count 2.52 X10^3/uL (0.83-4.51); Absolute Neutrophil Count 6.2 X10^3/uL (2.0-7.7); Basophil# 0.06 X10^3/uL; Basophil% 0.6 % (0-1); Eosinophil# 0.18 X10^3/uL; Eosinophils% 1.8 % (0-5); Hematocrit 41.8 % (37-47); Hemoglobin 13.6 g/dL (12.0-15.0); Lymphocyte # 2.52 X10^3/ul (0.83-4.51); Lymphocyte % 25.9 % (19-41); Mean Corp Hgb Conc 32.5 g/dL (32-36); Mean Corpuscular Hgb 28.9 pg (27.0-32.0); Mean Corpuscular Volume 88.7 fL (81-99); Mean Platelet Vol. 11.8 fl (6.2-12.0); Monocyte# 0.72 X10^3/uL; Monocyte% 7.4 % (0-10); NRBC Flagged by Analyzer 0 % (0-5); Neutrophil # 6.23 X10^3/uL (2.7-7.7); Platelet Count 326 K/mm3 (150-450); RBC Distribution Width CV 13.8 % (11.6-14.6); Red Blood Count 4.71 M/mm3 (4.2-5.4); White Blood Count 9.7 K/mm3 (4.4-11.0)
[2024-05-08 00:22] VITALS: PULSE 69; RESP 22; O2SAT 100
[2024-05-08 00:22] LABS: AST(SGOT) 19 U/L (15-37); Alanine Aminotransfer ALT/SGPT 25 U/L (13-56); Albumin, Serum 3.5 g/dL (3.2-5.0); Alkaline Phosphatase 89 U/L (45-117); Anion Gap 5 (5-15); BUN 13 mg/dL (7-18); Bilirubin, Direct 0.12 mg/dL (0.00-0.30); Calcium,Total 8.7 mg/dL (8.5-10.1); Chloride 112 mmol/L (98-107); Creatinine, Serum 0.81 mg/dL (0.55-1.02); EST Glomerular Filtration Rate 85 mL/min (>60); Est Glom Filt Rate - Afr Amer 103 mL/min (>60); Estimated Creatinine Clearance 107.06 ml/min; Globulin 3.5 g/dL (2.2-4.2); Glucose 86 mg/dL (74-106); LDH 145 U/L (84-246); Magnesium 2.2 mg/dL (1.6-2.6); Potassium 3.9 mmol/L (3.5-5.1); Sodium Level 143 mmol/L (136-145)
[2024-05-08 00:30] VITALS: BP 125/86; PULSE 75; RESP 14; O2SAT 98
[2024-05-08 00:38] LABS: Bacteria 0 SEEN /hpf (None Seen); Mucous, Urine 0 SEEN /hpf (<or=2+); Red Blood Cells-Urine 0 SEEN /hpf (0-5); White Blood Cells 0 SEEN /hpf (0-5)
[2024-05-08 00:40] LABS: Color, Urine Yellow (Yellow); Glucose, Dipstick Normal (Normal); Ketone-Dipstick Negative (Negative); Leukocyte Esterase-Dipstick Negative /ul (Negative); Nitrite-Dipstick Negative (Negative); Occult Blood-Urine Negative /ul (Negative); Protein-Dipstick Negative (Negative); Specific Gravity, Urine 1.025 (1.002-1.030); Urine Bilirubin Dipstick Negative (Negative); Urine Clarity Clear (Clear); Urine Urobilinogen 1 mg/dl (Normal)
[2024-05-08 00:45] VITALS: BP 99/60; PULSE 71; RESP 17; O2SAT 98
[2024-05-08 00:55] LABS: Squamous Epithelial Cells - UA 0-5 SEEN /hpf (5-10)
[2024-05-08] MEDS: DiphenhydrAMINE 50 MG/ML Syringe 12.5 MG IV (01:02)
[2024-05-08] MEDS: Metoclopramide 10 MG/2 ML Vial IV (01:03)
[2024-05-08] MEDS: Morphine 4 MG/ML Syringe IV (01:03)
[2024-05-08 01:07] LABS: Amphetamine Urine VISTA NEGATIVE (<1000 ng/mL); Barbiturate Urine VISTA NEGATIVE (< 200 ng/mL); Benzodiazepine Urine VISTA NEGATIVE (< 200 ng/mL); Cocaine Urine VISTA NEGATIVE (< 300 ng/mL); Ecstacy Urine VISTA POSITIVE (< 500 ng/mL); Methadone Urine VISTA NEGATIVE (< 300 ng/mL); PCP Urine VISTA NEGATIVE (< 25 ng/mL); THC Urine VISTA NEGATIVE (< 50 ng/mL); Vista UDS pH Range 6
[2024-05-08 01:09] VITALS: BP 137/85; PULSE 89; RESP 16; O2SAT 99
--- NOTE | 2024-05-08 01:34 | NURSING ---
Pt ambulated in [place] independently.
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
[2024-05-08 01:49] VITALS: BP 105/75; PULSE 66; RESP 16; TEMP 36.1; O2SAT 96
--- NOTE | 2024-05-08 01:50 | NURSING ---
Daylight savings time. PT dc out of ED at 0150. Unable to document this.
== END 2024-05-08 01:50 | disposition home or self-care (01) ==
LOC: ED 05-08 01:42
PROVIDERS: Emergency Provider Emergency Medicine; PCP Internal Medicine; Visit Provider Emergency Medicine
DX: G40.909 Epilepsy, unspecified, not intractable, without status epilepticus (principal); S14.3XXS Injury of brachial plexus, sequela; V89.2XXS Person injured in unspecified motor-vehicle accident, traffic, sequela; Z87.820 Personal history of traumatic brain injury; Z88.1 Allergy status to other antibiotic agents; Z98.84 Bariatric surgery status; Z90.710 Acquired absence of both cervix and uterus
CPT/HCPCS: 70450; 71045; 80048; 80076; 80307; 81001; 82140; 83605; 83615; 83735; 84146; 85025; 93005; 96374; 96375; 99285; A4216

== ENCOUNTER 2024-05-30 07:54 | Emergency (ER) | payer MEDICAID, SELFPAY ==
[2024-05-30 07:54] VITALS: BP 132/93; PULSE 78; RESP 19; TEMP 37.1; O2SAT 98; BMI 30.9
[2024-05-30] MEDS: LORazepam 2 MG/ML Syringe 1 MG IV (08:08)
--- NOTE | 2024-05-30 08:29 | EX.ED.DYSGE1 ---
HPI History of Present Illness Chief Complaint: Seizure Informant: friend and EMS Narrative Narrative: Patient is a 33-year-old female with history of prior traumatic brain injury, left brachial plexus injury, PTSD, borderline personality and posttraumatic seizure disorder (on Lamictal) presenting for breakthrough seizure. Patient's friend states they were sleeping when she noticed that the patient was having all of her body shaking. This lasted for about 3 to 5 minutes. EMS was called. Patient is still slightly tremulous and has decreased responsiveness. Patient did not receive any medications and route. Her friend states that she recently was put on an increase of Lamictal to help with seizures and anxiety. She also states that she is scheduled to have what sounds like continuous EEG with an inpatient stay but in [place] soon. Patient had multiple ER visits for breakthrough seizures over the past month or 2. Review of [facility] shows neurology/epilepsy clinic note on 05/13/2024. 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 Had remission of seizures for about 10 years but then in of April 2024 started having seizure-like activity again. Her Wellbutrin had been reduced from 450 mg to 300 mg daily. Per neurology note they suspect that these are psychogenic seizures however will perform diagnostic evaluation with EMU. [facility] Medical History Brachial plexus injury Left axillary cellulitis with abscess Home Medications ?Medication ?Instructions ?Recorded ?Last Taken ?Type cyclobenzaprine 10 mg tablet 10 mg PO TID PRN Pain 09/23/21 Unknown History duloxetine 60 mg capsule,delayed 60 mg PO DAILY 09/23/21 Unknown History release (Cymbalta) trazodone 100 mg tablet 100 mg PO QHS 09/23/21 Unknown History ondansetron 4 mg disintegrating 4 mg PO Q8H PRN nausea and 09/24/21 Unknown Rx tablet vomiting #10 tabs tramadol 100 mg tablet 100 mg PO TID PRN pain #14 tabs 09/24/21 Unknown Rx promethazine 25 mg tablet 25 mg PO TID PRN nausea and 10/31/21 Unknown Rx vomiting #14 tabs diphenhydramine HCl 50 mg tablet 50 mg PO TID PRN migraine headache 07/30/23 Unknown Rx (Benadryl Allergy) #10 tabs metoclopramide HCl 10 mg tablet 10 mg PO Q6H PRN nausea and 07/30/23 Unknown Rx (Reglan) vomiting #10 tabs bupropion HCl 150 mg 24 hr tablet, 150 mg PO DAILY 12/28/23 Unknown History extended release bupropion HCl 300 mg 24 hr tablet, 300 mg PO DAILY 12/28/23 Unknown History extended release cholecalciferol (vitamin D3) 1,250 1,250 mcg PO QWEEK 12/28/23 Unknown History mcg (50,000 unit) capsule erenumab-aooe 70 mg/mL 70 mg subcut QMONTH 12/28/23 Unknown History subcutaneous auto-injector (Aimovig Autoinjector) loratadine 10 mg tablet 10 mg PO DAILY 12/28/23 Unknown History metoprolol succinate 50 mg 50 mg PO DAILY 12/28/23 Unknown History tablet,extended release 24 hr magnesium chloride 64 mg 128 mg (2 x 64 mg) PO BID 2 days 01/01/24 Unknown Rx (magnesium chloride) #8 tabs tablet,delayed release (Mag 64) lamotrigine 100 mg tablet 75 mg PO DAILY 02/12/24 Unknown History lamotrigine 150 mg tablet 75 mg PO DAILY 02/12/24 Unknown History (Lamictal) ciprofloxacin HCl 500 mg tablet 500 mg PO BID #14 tabs 02/28/24 Unknown Rx (Cipro) metronidazole 500 mg tablet 500 mg PO TID 7 days #21 tabs 02/28/24 Unknown Rx Allergy/AdvReac Type Severity Reaction Status Date / Time hydromorphone HCl (From Allergy Other Verified 05/05/24 21:39 Dilaudid) vancomycin Allergy Rash Verified 05/05/24 21:39 acetaminophen (From Vicodin) AdvReac Vomiting Verified 05/05/24 21:39 hydrocodone (From Vicodin) AdvReac Vomiting Verified 05/05/24 21:39 oxycodone (From Percocet) AdvReac Vomiting Verified 05/05/24 21:39 Surgical History H/O gastric bypass H/O: hysterectomy Hx of cholecystectomy Social History Smoking Status: Never smoker ROS ROS ED Review of Systems ROS Unobtainable: due to mental status EXAM Physical Exam Const Vital Signs: 05/30/24 07:54 05/30/24 09:54 05/30/24 11:00 Temperature 98.7 F Temperature Source Oral Pulse Rate 78 76 71 Respiratory Rate 19 H 18 20 H Blood Pressure 132/93 H 112/75 119/78 Blood Pressure Mean 106 87 91 Pulse Ox 98 96 97 Oxygen Delivery Method Room Air Room Air Room Air Positive well nourished and well developed Constitutional Narrative: Obtunded General Appearance ED: well developed and NAD HEENT Reports moist mucous membranes HEENT Narrative: No tongue lacerations appreciated Eyes PERRL and EOMs intact bilaterally Eyes Narrative: Patient is not really focusing her eyes does not have a gaze deviation. Neck supple Neck Narrative: No meningeal signs Chest Wall inspection of chest normal Resp normal respiratory effort and clear to auscultation bilaterally Cardio regular rate and regular rhythm GI normal to inspection, nondistended, normoactive bowel sounds and non-tender Extremity normal to inspection Extremity Narrative: Slight contracture of the left hand consistent with prior brachial plexus injury General Extremety ED: Negative for edema or tenderness General Extremity: Negative for edema Neuro Neuro Narrative: Slightly tremulous. Minimally responsive to name. No focal or lateralizing deficits appreciated. No tonic-clonic seizure activity appreciated. Skin no rashes or lesions noted and no wounds MDM MDM MDM Narrative Medical decision making narrative: Patient evaluated for report of breakthrough seizure activity. Has history of seizures but is unclear if it is associated with her TBI or psychogenic. Is scheduled to have an inpatient epileptic evaluation at [facility] in 5 days. Arrival patient is tremulous and staring off. I am not sure if this is seizure activity, psychogenic or postictal state. Out of abundance of caution she is given 1 mg of IV Ativan. Upon further evaluation patient is since returned to her baseline. She is mentating appropriately. She is ambulatory in the room. She is complain of dizziness and lightheadedness.. He is not any focal neurologic deficits. Lab including CBC and BMP is normal. Urine is negative. Urine drug positive for MDMA but otherwise negative. This could be cross-reaction from her medications. I did speak with epilepsy brick and block mason, Dr. Riggs, who reviewed the patient's chart.He states that per his records patient had lightheadedness and dizziness about 3 days after her last breakthrough seizure. At this time he would not recommend any medication changes and would like to wait until she has her planned admission for her seizures in 5 days. Patient is comfortable this plan of care. Patient be discharged home with return precautions and seizure precautions. She verbalized agreement understand this plan. Lab Data Attestation: I reviewed the patient's lab results. Labs: Laboratory Results - last 24 hr 05/30/24 05/30/24 08:34 08:42 WBC 6.5 RBC 4.36 Hgb 12.7 Hct 39.0 MCV 89.4 MCH 29.1 MCHC 32.6 RDW Std Deviation 44.3 H RDW Coeff of Timothy 13.7 Plt Count 263 MPV 11.4 Immature Gran % (Auto) 0.300 Neut % (Auto) 61.3 Lymph % (Auto) 27.8 [place] % (Auto) 7.9 Eos % (Auto) 1.9 Baso % (Auto) 0.8 Absolute Neuts (auto) 4.0 Absolute Lymphs (auto) 1.80 Nucleated RBC % 0 Sodium 141 Potassium 3.7 Chloride 111 H Carbon Dioxide 25.0 Anion Gap 5 BUN 10 Creatinine 0.75 Estim Creat Clear Calc 112.26 Est GFR (MDRD) Af Amer 112 Est GFR (MDRD) Non-Af 93 BUN/Creatinine Ratio 13.3 Glucose 87 Calcium 8.8 Serum , Qual NEGATIVE Urine Opiates Screen NEGATIVE Urine Methadone Screen NEGATIVE Ur Barbiturates Screen NEGATIVE Ur Phencyclidine Scrn NEGATIVE Ur Amphetamines Screen NEGATIVE MDMA (Ecstasy) Screen POSITIVE H U Benzodiazepines Scrn NEGATIVE Urine Cocaine Screen NEGATIVE U Cannabinoids Screen NEGATIVE Ur Drug Screen Comment Discharge Plan Triage Chief Complaint: Seizure ED Provider: Suyapa Lazar Dx/Rx/DC Orders Clinical Impression: Breakthrough seizure Instructions: ED Seizure, Recurrent (Adult) Prescriptions: No Action lamotrigine [Lamictal] 150 mg tablet 75 mg PO DAILY cyclobenzaprine 10 mg Tablet 10 mg PO TID PRN (Reason: Pain) trazodone 100 mg Tablet 100 mg PO QHS duloxetine [Cymbalta] 60 mg Capsule,Delayed Release(Dr/Ec) 60 mg PO DAILY tramadol 100 mg tablet 100 mg PO TID PRN (Reason: pain) Qty: 14 0RF ondansetron 4 mg tablet,disintegrating 4 mg PO Q8H PRN (Reason: nausea and vomiting) Qty: 10 0RF promethazine 25 mg tablet 25 mg PO TID PRN (Reason: nausea and vomiting) Qty: 14 0RF metoclopramide HCl [Reglan] 10 mg tablet 10 mg PO Q6H PRN (Reason: nausea and vomiting) Qty: 10 0RF Benadryl Allergy 50 mg tablet 50 mg PO TID PRN (Reason: migraine headache) Qty: 10 0RF bupropion HCl 300 mg tablet extended release 24 hr 300 mg PO DAILY Patient Comments: TAKE FOR A TOTAL OF 450 MG bupropion HCl 150 mg tablet extended release 24 hr 150 mg PO DAILY Patient Comments: TAKE FOR A TOTAL OF 450 MG metoprolol succinate 50 mg tablet extended release 24 hr 50 mg PO DAILY loratadine 10 mg tablet 10 mg PO DAILY cholecalciferol (vitamin D3) 1,250 mcg (50,000 unit) capsule 1,250 mcg PO QWEEK Aimovig Autoinjector 70 mg/mL auto-injector 70 mg subcut QMONTH magnesium chloride [Mag 64] 64 mg Tablet,Delayed Release (Dr/Ec) 128 mg PO BID 2 Days Qty: 8 0RF lamotrigine 100 mg tablet 75 mg PO DAILY ciprofloxacin HCl [Cipro] 500 mg tablet 500 mg PO BID Qty: 14 0RF metronidazole 500 mg tablet 500 mg PO TID 7 Days Qty: 21 0RF Primary Care Provider: Pilar Martin Referrals: Pilar Martin MD [Primary Care Provider] - Activity Restrictions/Additional Instructions: Please follow-up with your neurologist as scheduled. Print Language: Welsh Disposition Disposition: Home, Self Care
[2024-05-30 08:50] LABS: Basophil# 0.05 X10^3/uL; Basophil% 0.8 % (0-1); Eosinophil# 0.12 X10^3/uL; Eosinophils% 1.9 % (0-5); Hemoglobin 12.7 g/dL (12.0-15.0); Lymphocyte % 27.8 % (19-41); Mean Corp Hgb Conc 32.6 g/dL (32-36); Mean Corpuscular Hgb 29.1 pg (27.0-32.0); Mean Corpuscular Volume 89.4 fL (81-99); Mean Platelet Vol. 11.4 fl (6.2-12.0); Monocyte# 0.51 X10^3/uL; Monocyte% 7.9 % (0-10); NRBC Flagged by Analyzer 0 % (0-5); Neutrophil # 3.98 X10^3/uL (2.7-7.7); Neutrophil % 61.3 % (47-70); Platelet Count 263 K/mm3 (150-450); RBC Distribution Width CV 13.7 % (11.6-14.6); RBC Distribution Width SD 44.3 fl (35.1-43.9); Red Blood Count 4.36 M/mm3 (4.2-5.4); White Blood Count 6.5 K/mm3 (4.4-11.0)
[2024-05-30 09:05] LABS: Anion Gap 5 (5-15); BUN 10 mg/dL (7-18); BUN/Creat Ratio 13.3 RATIO (10-20); Calcium,Total 8.8 mg/dL (8.5-10.1); Chloride 111 mmol/L (98-107); Creatinine, Serum 0.75 mg/dL (0.55-1.02); EST Glomerular Filtration Rate 93 mL/min (>60); Est Glom Filt Rate - Afr Amer 112 mL/min (>60); Estimated Creatinine Clearance 112.26 ml/min; Glucose 87 mg/dL (74-106); Potassium 3.7 mmol/L (3.5-5.1); Sodium Level 141 mmol/L (136-145)
[2024-05-30 09:09] LABS: Internal QC Validated? YES +Cl - CLEAR BKGD; Pregnancy, Serum, hCG Quali. NEGATIVE Negative
[2024-05-30 09:10] LABS: Amphetamine Urine VISTA NEGATIVE (<1000 ng/mL); Barbiturate Urine VISTA NEGATIVE (< 200 ng/mL); Benzodiazepine Urine VISTA NEGATIVE (< 200 ng/mL); Cocaine Urine VISTA NEGATIVE (< 300 ng/mL); Ecstacy Urine VISTA POSITIVE (< 500 ng/mL); Methadone Urine VISTA NEGATIVE (< 300 ng/mL); PCP Urine VISTA NEGATIVE (< 25 ng/mL); THC Urine VISTA NEGATIVE (< 50 ng/mL); Vista UDS pH Range 5
[2024-05-30 09:54] VITALS: BP 112/75; PULSE 76; RESP 18; O2SAT 96
[2024-05-30 11:00] VITALS: BP 119/78; PULSE 71; RESP 20; O2SAT 97
--- NOTE | 2024-05-30 12:18 | ED.RN ---
Dr. Lazar bedside
[2024-05-30 12:33] VITALS: BP 119/78; PULSE 71; RESP 20; TEMP 37.1; O2SAT 97
[2024-05-30 13:00] VITALS: PULSE 91
== END 2024-05-30 13:06 | disposition home or self-care (01) ==
PROVIDERS: Emergency Provider Emergency Medicine; PCP Internal Medicine; Visit Provider Emergency Medicine
DX: G40.919 Epilepsy, unspecified, intractable, without status epilepticus (principal); F60.3 Borderline personality disorder; F41.9 Anxiety disorder, unspecified; M24.542 Contracture, left hand; S14.3XXS Injury of brachial plexus, sequela; X58.XXXS Exposure to other specified factors, sequela; Z88.1 Allergy status to other antibiotic agents; Z87.820 Personal history of traumatic brain injury; Z79.899 Other long term (current) drug therapy
CPT/HCPCS: 36415; 80048; 80307; 84703; 85025; 96374; 99284; A4216

== ENCOUNTER 2024-05-30 18:50 | Emergency (ER) | payer MEDICAID, SELFPAY ==
[2024-05-30 18:51] VITALS: BP 125/76; PULSE 90; RESP 16; TEMP 37.5; O2SAT 99; BMI 32.3
--- NOTE | 2024-05-30 19:09 | EX.ED.DYSGE1 ---
HPI History of Present Illness Chief Complaint: Seizure Informant: patient and EMS Narrative Narrative: 33-year-old female had another seizure at home, for which she was also seen here this morning. She states only thing that was different between now and then is that she took a hit off of her THC pen because she has been feeling anxious. She states she has kids at home and has no desire to do other drugs such as IV drug. She has a history of these episodes. She states it has been every week or 2 for the last couple months. She has an appointment for an inpatient stay at epilepsy unit in [place] in 5 days. She states she was in her bed when this occurred today and did not fall and injure herself or anything. Other than a headache and feeling malaise she has no other complaints right now. Initially for EMS she was opening her eyes but not able to talk but upon my evaluation she is now able to speak and move everything and follow commands. She states she is on Lamictal for possible seizures, and she did not take it yesterday and also did not take it this morning. It does not appear that she was given it in the ER earlier. She also states she forgot to take her Wellbutrin. [facility] Medical History Brachial plexus injury Left axillary cellulitis with abscess Home Medications ?Medication ?Instructions ?Recorded ?Last Taken ?Type cyclobenzaprine 10 mg tablet 10 mg PO TID PRN Pain 09/23/21 Unknown History duloxetine 60 mg capsule,delayed 60 mg PO DAILY 09/23/21 Unknown History release (Cymbalta) trazodone 100 mg tablet 100 mg PO QHS 09/23/21 Unknown History ondansetron 4 mg disintegrating 4 mg PO Q8H PRN nausea and 09/24/21 Unknown Rx tablet vomiting #10 tabs tramadol 100 mg tablet 100 mg PO TID PRN pain #14 tabs 09/24/21 Unknown Rx promethazine 25 mg tablet 25 mg PO TID PRN nausea and 10/31/21 Unknown Rx vomiting #14 tabs diphenhydramine HCl 50 mg tablet 50 mg PO TID PRN migraine headache 07/30/23 Unknown Rx (Benadryl Allergy) #10 tabs metoclopramide HCl 10 mg tablet 10 mg PO Q6H PRN nausea and 07/30/23 Unknown Rx (Reglan) vomiting #10 tabs bupropion HCl 150 mg 24 hr tablet, 150 mg PO DAILY 12/28/23 Unknown History extended release bupropion HCl 300 mg 24 hr tablet, 300 mg PO DAILY 12/28/23 Unknown History extended release cholecalciferol (vitamin D3) 1,250 1,250 mcg PO QWEEK 12/28/23 Unknown History mcg (50,000 unit) capsule erenumab-aooe 70 mg/mL 70 mg subcut QMONTH 12/28/23 Unknown History subcutaneous auto-injector (Aimovig Autoinjector) loratadine 10 mg tablet 10 mg PO DAILY 12/28/23 Unknown History metoprolol succinate 50 mg 50 mg PO DAILY 12/28/23 Unknown History tablet,extended release 24 hr magnesium chloride 64 mg 128 mg (2 x 64 mg) PO BID 2 days 01/01/24 Unknown Rx (magnesium chloride) #8 tabs tablet,delayed release (Mag 64) lamotrigine 100 mg tablet 75 mg PO DAILY 02/12/24 Unknown History lamotrigine 150 mg tablet 75 mg PO DAILY 02/12/24 Unknown History (Lamictal) ciprofloxacin HCl 500 mg tablet 500 mg PO BID #14 tabs 02/28/24 Unknown Rx (Cipro) metronidazole 500 mg tablet 500 mg PO TID 7 days #21 tabs 02/28/24 Unknown Rx Allergy/AdvReac Type Severity Reaction Status Date / Time hydromorphone HCl (From Allergy Other Verified 05/30/24 18:51 Dilaudid) vancomycin Allergy Rash Verified 05/30/24 18:51 acetaminophen (From Vicodin) AdvReac Vomiting Verified 05/30/24 18:51 hydrocodone (From Vicodin) AdvReac Vomiting Verified 05/30/24 18:51 oxycodone (From Percocet) AdvReac Vomiting Verified 05/30/24 18:51 Surgical History H/O gastric bypass H/O: hysterectomy Hx of cholecystectomy Social History Smoking Status: Current every day smoker tobacco type: e-cigarettes ROS ROS ED Constitutional Constitutional ED: Reports fatigue; Denies chills or fever(s) Eyes Eyes: Denies change in vision or diplopia ENT ENT ED: Denies rhinorrhea or sore throat Cardiovascular Cardiovascular: Denies chest pain or palpitations Respiratory/Chest Respiratory/Chest: Denies cough or dyspnea Gastrointestinal Gastrointestinal: Denies abdominal pain, diarrhea, nausea or vomiting Genitourinary Genitourinary ED: Denies dysuria or hematuria Musculoskeletal Musculoskeletal: Denies back pain or neck pain Integumentary Denies abscess or rash Neurologic Neurologic: Reports headache(s) and other Details: Seizure-like activity see HPI ; Denies paresthesias or weakness Psychiatric Psychiatric: Denies anxiety or suicidal thoughts EXAM Physical Exam Const Vital Signs: 05/30/24 18:51 05/30/24 20:50 Temperature 99.5 F H Temperature Source Axillary Pulse Rate 90 89 Respiratory Rate 16 22 H Blood Pressure 125/76 H 128/84 H Blood Pressure Mean 92 98 Pulse Ox 99 98 Oxygen Delivery Method Room Air Room Air Positive well nourished and well developed General Appearance ED: well developed and NAD HEENT Reports moist mucous membranes normocephalic and atraumatic Eyes PERRL and EOMs intact bilaterally Neck full ROM and supple Resp normal respiratory effort and clear to auscultation bilaterally Cardio regular rate, regular rhythm and no murmurs GI non-tender and non-distended Auscultation: normoactive bowel sounds Palpation: soft Back/Spine no CVA tenderness General Back: other FROM Extremity normal to inspection General Extremety ED: Negative for edema, pulses abnormal or tenderness General Extremity: Negative for edema or pulses abnormal Neuro oriented x3, CN's II-XII intact bilaterally and no sensory deficits noted Sensorium / Orientation: awake and alert Motor Exam: strength 5/5 throughout Skin no rashes or lesions noted and no wounds MDM MDM MDM Narrative Medical decision making narrative: Patient clinically and hemodynamically stable here neurologically intact. I reviewed her recent ER visit I do not think we need to repeat any of the studies. They spoke with Dr. Bowling with epilepsy at [facility] where she is scheduled for admission in 5 days, Patient's son arrived, he witnessed both episodes today. Right before she arrived here, he states for 8-12 minutes, she would shake violently, stop, gasp for air, and restart shaking. This was off-and-on for a total of 8-12 minutes. She was sleeping after that. He states this was worse than the one this morning. Patient states she takes Lamictal 100 mg once daily (this differs from her EMR med list). I am giving her 150 right now. She is currently awake and not seizing. I was able to discuss with Dr. Chin, currently on for the epilepsy service with the EMU at [facility], and he states since there is a bed available on the EMU, he would be willing to accept the patient if she is willing to go up today. The patient states she prefers to go up today but will need to make phone calls to ensure care for her children while she is gone. For now, we are awaiting bed availability for transfer and observing the patient. History & Record Review Discussion w/independent historian: EMS personnel, Patient and Family Management Discussion w/another healthcare provider: Put In Beat Adjuster Discharge Plan Triage Chief Complaint: Seizure ED Provider: John Bansal Dx/Rx/DC Orders Clinical Impression: Seizure-like activity Prescriptions: No Action lamotrigine [Lamictal] 150 mg tablet 75 mg PO DAILY cyclobenzaprine 10 mg Tablet 10 mg PO TID PRN (Reason: Pain) trazodone 100 mg Tablet 100 mg PO QHS duloxetine [Cymbalta] 60 mg Capsule,Delayed Release(Dr/Ec) 60 mg PO DAILY tramadol 100 mg tablet 100 mg PO TID PRN (Reason: pain) Qty: 14 0RF ondansetron 4 mg tablet,disintegrating 4 mg PO Q8H PRN (Reason: nausea and vomiting) Qty: 10 0RF promethazine 25 mg tablet 25 mg PO TID PRN (Reason: nausea and vomiting) Qty: 14 0RF metoclopramide HCl [Reglan] 10 mg tablet 10 mg PO Q6H PRN (Reason: nausea and vomiting) Qty: 10 0RF Benadryl Allergy 50 mg tablet 50 mg PO TID PRN (Reason: migraine headache) Qty: 10 0RF bupropion HCl 300 mg tablet extended release 24 hr 300 mg PO DAILY Patient Comments: TAKE FOR A TOTAL OF 450 MG bupropion HCl 150 mg tablet extended release 24 hr 150 mg PO DAILY Patient Comments: TAKE FOR A TOTAL OF 450 MG metoprolol succinate 50 mg tablet extended release 24 hr 50 mg PO DAILY loratadine 10 mg tablet 10 mg PO DAILY cholecalciferol (vitamin D3) 1,250 mcg (50,000 unit) capsule 1,250 mcg PO QWEEK Aimovig Autoinjector 70 mg/mL auto-injector 70 mg subcut QMONTH magnesium chloride [Mag 64] 64 mg Tablet,Delayed Release (Dr/Ec) 128 mg PO BID 2 Days Qty: 8 0RF lamotrigine 100 mg tablet 75 mg PO DAILY ciprofloxacin HCl [Cipro] 500 mg tablet 500 mg PO BID Qty: 14 0RF metronidazole 500 mg tablet 500 mg PO TID 7 Days Qty: 21 0RF Primary Care Provider: Pilar Martin Referrals: Pilar Martin MD [Primary Care Provider] - Print Language: Iraqi Disposition Disposition: Acute Care Hospital Discharge Location: [facility]
[2024-05-30 20:50] VITALS: BP 128/84; PULSE 89; RESP 22; O2SAT 98
[2024-05-30] MEDS: lamoTRIgine 150 MG Tablet PO (20:53)
[2024-05-30 22:00] VITALS: BP 120/82; BP 134/83; PULSE 78; PULSE 82; RESP 18; O2SAT 96; O2SAT 98
[2024-05-30 22:56] VITALS: BP 131/97; PULSE 79; RESP 15; TEMP 36.6; O2SAT 98
[2024-05-31] VITALS: BP 118/88; PULSE 76; RESP 15; O2SAT 99
--- NOTE | 2024-05-31 00:30 | ED.RN ---
[facility] arrives for transport, report given. All questions answered.Transport crew denies further needs.
== END 2024-05-31 00:38 | disposition short-term general hospital (02) ==
PROVIDERS: Emergency Provider Emergency Medicine; PCP Internal Medicine; Visit Provider Emergency Medicine
DX: R56.9 Unspecified convulsions (principal); F17.290 Nicotine dependence, other tobacco product, uncomplicated; Z88.1 Allergy status to other antibiotic agents; Z79.899 Other long term (current) drug therapy
CPT/HCPCS: 99285; A4216